=== PATIENT | male | born 1950 | race Caucasian/White ===

== ENCOUNTER 2017-08-14 10:16 | Observation (INO) | payer MEDICARE, SELFPAY | END 2017-08-16 09:50 | disposition home or self-care (01) | PROVIDERS: Admitting Provider Family Medicine; Emergency Provider Emergency Medicine; Family Provider Family Medicine; PCP Family Medicine; Visit Provider Family Medicine | DX: N20.1 Calculus of ureter (principal); N13.5 Crossing vessel and stricture of ureter without hydronephrosis; I10 Essential (primary) hypertension | CPT/HCPCS: 52332; 52351; 99203; 36415; 50387; 74176; 80048; 80053; 81001; 82150; 83690; 85025; 87086; 94640; 94760; 96365; 96375; 99284; C1769; C2617; G0378; J0131; J2405 ==

== ENCOUNTER 2017-09-06 10:00 | Outpatient (RCR) | payer MEDICARE, SELFPAY | END 2017-09-06 23:59 | LOC: PT 10:00 | PROVIDERS: Visit Provider Orthopaedic Surgery | DX: Z96.652 Presence of left artificial knee joint (principal); M25.562 Pain in left knee | CPT/HCPCS: G8978; G8979; G8980; 97014; 97016; 97110; 97140; 97161; G0283 ==

== ENCOUNTER 2017-10-27 09:00 | Outpatient (RCR) | payer MEDICARE, SELFPAY | END 2017-10-27 09:02 | disposition home or self-care (01) | LOC: PT 09:00 | PROVIDERS: Visit Provider Orthopaedic Surgery | DX: M25.562 Pain in left knee (principal) | CPT/HCPCS: 97010; 97014; 97016; 97033; 97035; 97110; 97140; G0283 ==

== ENCOUNTER → 2018-01-12 10:34 | Outpatient (CLI) | payer MEDICARE, SELFPAY ==
--- NOTE | 2018-01-12 10:39 | US_ITS ---
US extremity RT limited CLINICAL INDICATION: ITS.REASON: MASS RT AXILLA ORDERING PHYSICIAN: Manuelito Dior MD PATIENT AGE: 67 years FINDINGS: Ultrasound of the palpable abnormality in the right posterior axillary region demonstrates a heterogeneous area of echogenicity measuring 3 x 1 cm mixed iso and hyperechoic areas. This is not a typical appearance for a lipoma. CT recommended for further evaluation. IMPRESSION: 3 x 1 cm mixed pericolic area corresponding to the palpable abnormality in the right axillary region posteriorly not typical appearance for a lipoma. Consider CT for further evaluation
== END ==
PROVIDERS: Family Provider Family Medicine; PCP Family Medicine; Visit Provider Family Medicine
DX: R22.31 Localized swelling, mass and lump, right upper limb (principal)

== ENCOUNTER → 2018-01-30 10:33 | Outpatient (CLI) | payer MEDICARE, SELFPAY ==
[2018-01-30 10:52] LABS: Blood Urea Nitrogen 18 mg/dL (7-18); Creatinine,Serum 1.36 mg/dL (0.70-1.30); Estimated Glomerular Filt Rate 52 ml/min (>60); GFR (African American) 63 ML/MIN (>60)
--- NOTE | 2018-01-30 10:56 | CT_ITS ---
CT chest w con HISTORY: ITS.REASON: MASS RIGHT AXILLA ORDERING PHYSICIAN: Manuelito Dior MD PATIENT AGE: 67 years TECHNIQUE: Axial images obtained following the administration of 75 mL of Isovue 370 . Sagittal, and coronal reformatted images are also generated and reviewed. All CT scans at the facility use one or more dose reduction, viz: automated exposure control; ma/kV adjustment per patient size (including targeted exams where dose is matched to indication; i.e. head); or iterative reconstruction technique. COMPARISON: 01/12/2018 FINDINGS: There is fatty mass involving the latissimus dorsi muscle superiorly. This measures 11 x 4.6 x 5 cm . This is consistent with a lipoma. There is an internal septa however, no stranding of the fat or calcification or internal hemorrhage is evident. No axillary adenopathy. No mediastinal or hilar mass or adenopathy. Normal heart size. The lungs are clear aside from calcified granuloma in the left lower lobe. No acute bony anomalies. IMPRESSION: Lipoma of the right latissimus dorsi
== END ==
PROVIDERS: Family Provider Family Medicine; PCP Family Medicine; Visit Provider Family Medicine
DX: R22.31 Localized swelling, mass and lump, right upper limb (principal)
CPT/HCPCS: 36415; 71260; 82565; 84520; Q9967

== ENCOUNTER → 2018-04-10 13:54 | Outpatient (CLI) | payer MEDICARE, SELFPAY | PROVIDERS: PCP Family Medicine; Visit Provider Family Medicine | DX: R00.2 Palpitations (principal) | CPT/HCPCS: 93225; 93226 ==

== ENCOUNTER → 2018-05-07 07:11 | Outpatient (CLI) | payer MEDICARE, SELFPAY ==
--- NOTE | 2018-05-07 07:13 | CA_ITS ---
PROCEDURE: 2-D M-mode and color Doppler study INDICATIONS FOR THE TEST: Chest pain X COPDX Heart Murmur Tobacco SmokingEX PalpitationsX Fatigue Syncope Edema Hypertension Diabetes Mellitus Rheumatic Fever SOB DOEXObesity Hyperlipidemia Family History HDX Additional History ABN EKG PATIENT INFORMATION HEIGHT: 68 WEIGHT:179 GENDER: Male B/P:121/62 2-D/M-MODE INTERPRETATION: 2-D MEASUREMENTS OBSERVED VALUES IN CMS Right Ventricular Dimension (RVDd) 3.0 Interventricular Septum (Thickness)(IVsd) .9 Left Ventricular Internal Dimensions(LVIDd) 4.7 Left Ventricular Posterior Wall (Thickness)(LVPWd) .9 Aortic Root 3.3 Aortic Cusp Separation 1.6 Left Atrial Dimensions (LAD) 3.7 2D 1. Left atrium is qualitatively mildly enlarged, left ventricle is normal size, left ventricle wall thickness is upper limit of the normal, there is preserved left ventricular systolic function, visually estimated ejection fraction of 55% with no obvious regional wall motion abnormality. 2. The right atrium and right ventricle are normal size and contractility. 3. The aortic valve is minimally thickened and fibrosed. 4. The mitral and tricuspid valve leaflets are minimally thickened. 5. The pulmonic valve is poorly visualized. 6. No significant pericardial effusion noted. DOPPLER INTERROGATION: Doppler interrogation of the aortic, mitral and tricuspid valve reveals presence of mild tricuspid regurgitation, calculated right ventricular systolic pressure is 41 mmHg consistent with moderate bony hypertension, grade 1 diastolic dysfunction seen with tissue Doppler evidence of raised left atrial pressure. CONCLUSION: 1. Mildly enlarged left atrium, normal left ventricular size, visually estimated ejection fraction 55% with no obvious regional wall motion abnormality, grade 1 diastolic dysfunction seen with tissue Doppler evidence of raised left atrial pressure. 2. Mild mitral and tricuspid regurgitation, calculated right ventricular systolic pressure is 41 mmHg consistent with moderate pulmonary hypertension. 3. No significant pericardial effusion noted.
--- NOTE | 2018-05-07 07:13 | NM_ITS ---
History and Indications: Hypertension, hyperlipidemia, family history, chest pain, fatigue and abnormal EKG. Procedure: Patient exercised on Marvin protocol 7 minutes, resting heart rate was 56 bpm, resting blood pressure 146/80, with exercise maximum heart rate achieved was 1 32 bpm which is greater than 85% of the maximum predicted heart rate and a blood pressure was 176/64. Test was started due to shortness of breath and fatigue patient denied any complained of chest pain. Patient has good exercise capacity achieved 10.1mets of workload on treadmill, the blood pressure response to exercise was adequate. Electrocardiogram: Resting electrocardiogram showed sinus bradycardia, with exercise there is less than 1.[address] segment depression noted from the baseline EKG. The EKG portion of the exercise Myoview is negative for ischemia. Cardiac stress and resting SPECT images: Cardiac stress and rest SPECT images were obtained using technetium 99 Myoview, 32.3 mCi at stress and can 10.4 mCi at rest, gated SPECT further analysis of segmental wall motion and calculation of the ejection fraction also been. Cardiac stress and rest images show a mild fixed defect in the inferior wall with normal contractility in the gated SPECT is likely secondary to soft tissue attenuation, no reversible ischemia seen. Computer derived ejection fraction is 58% with no regional wall motion abnormality, right ventricle is normal size and contractility. Conclusion: 1. The EKG portion of the exercise Myoview is negative for ischemia, patient has good exercise capacity achieved 10.1mets of workload on treadmill, the blood pressure response to exercise was adequate, there was no exercise-induced chest discomfort. 2. No obvious scintigraphic evidence of reversible ischemia seen, computer derived ejection fraction is over 65% with no obvious regional wall motion abnormality, right ventricle is normal size and contractility. 3. Normal exercise Myoview study.
--- NOTE | 2018-05-07 07:29 | HMH.ITSHM ---
GABAPENTIN ALLOPURINOL TRILIPIX ROSUVASTATIN LEVOTHYROXINE LEVOBUTEROL CLONAZEPAM ADVAIR LISINOPRIL
== END ==
PROVIDERS: Family Provider Family Medicine; PCP Family Medicine; Visit Provider Internal Medicine
DX: R00.2 Palpitations (principal); R07.9 Chest pain, unspecified; R06.00 Dyspnea, unspecified
CPT/HCPCS: 78452; 93017; 93306; A9502

== ENCOUNTER → 2018-06-04 08:43 | Outpatient (POV) | payer MEDICARE, SELFPAY ==
[2018-06-04 08:54] VITALS: BP 150/83; PULSE 74; RESP 18; O2SAT 98
--- NOTE | 2018-06-04 09:23 | HMH.PMCON ---
Assessment and Plan (1) Right shoulder pain Current visit: Yes Status: Chronic Qualifiers: Chronicity: chronic Qualified Code(s): M25.511 - Pain in right shoulder; G89.29 - Other chronic pain Category: Medical Code(s): M25.511 - Pain in right shoulder - Assessment and plan all Dx Assessment and Plan for all problems:: We will schedule a right intra-articular shoulder injection for the patient. Patient is done well with this in the past. I will follow-up with the patient after his injection and reassess his symptoms at that time. This note was dictated using voice recognition software and may contain errors or omissions HPI - Data of Consult Consult date: 06/04/18 Requesting Physician: Maye Padron APRN Primary Care Provider: Manuelito Dior MD Family Provider: Manuelito Dior MD - Consult Narrative Reason for consult: Right shoulder pain History of present illness: Mr. Vaughn is a 67 year old male who presents today for consultation in regards to his right shoulder pain. Patient states that 2 years ago he had the exact same pain where he got injections by Dr. Huerta in [place] after 2 injections he had 90% relief for 2 years. Patient states her pain is beginning to come back. Patient states his pain is a 8 out of 10 today. It is increased when he lifts and decreases when he rests. Patient does have some limited range of motion in that area. Patient is continuing a home stretching exercise program. Patient's tried anti-inflammatories along with gabapentin with no relief. Patient states that the pain is very focal in his shoulder. CC: Maye Padron APRN [facility] History I have reviewed the patient's past medical history: Yes Medical History: Reports:: Asthma, Chronic Obstructive Pulmonary Disease (COPD), Hyperlipidemia, Hypertension Denies:: Cancer, Diabetes Mellitus Type 1, Diabetes Mellitus Type 2 Laterality Cases: Bilateral: Tonsillectomy Other Surgeries: Yes: Cardiac Catheterization (05/10/18 no stents), Cholecystectomy, Hernia Repair Amputation: No Fractures: No - *Social History Smoking Status: Former smoker Tobacco Type: cigarettes Alcohol Intake: current Alcohol Intake Frequency:: a few times a week Substance Use Type: denies use Occupational Status: retired Housing: house Household Members: spouse - Psychiatric History Expresses thoughts of harming self/others: None Suicide Plan Description: No Plan *Family Hx:: Hypertension, Stroke Review of Systems - Review of Systems ROS General: no recent weight change, no fever, no sleep disturbances Respiratory: no cough, no shortness of air, no recurring pulmonary infections Cardiovascular/Peripheral Vascular: No chest pain, No palpitations, no edema, no shortness of breath. Gastrointestinal: no incontinence, normal bowel movements reported Genitourinary: no incontinence Musculoskeletal: Shoulder pain right side Psychiatric: normal mood/ affect Neurological: [denies weakness in extremities], [denies balance issues] Meds Home Medications Medication Instructions Recorded Confirmed Type allopurinol 100 mg tablet 100 mg PO QDAY 10/03/17 04/23/18 History clonazepam 1 mg tablet 1 mg PO QHS 10/03/17 04/23/18 History fenofibric acid (choline) 135 mg 135 mg PO QDAY 10/03/17 04/23/18 History capsule,delayed release fluticasone 50 mcg/actuation 1 inh INHALATION BID 10/03/17 History blister powder for inhalation levothyroxine 25 mcg capsule 25 mcg PO DAILY 10/03/17 04/23/18 History cholecalciferol (vitamin D3) 5,000 5,000 unit PO DAILY cap 04/24/18 History unit capsule gabapentin 300 mg capsule 300 mg PO QHS cap 04/24/18 History levalbuterol 1.25 mg/3 mL solution 1.25 mg INHALATION Q4H PRN 04/24/18 History for nebulization rosuvastatin 20 mg tablet 20 mg PO DAILY tab 04/24/18 History Allergies Allergy/AdvReac Type Severity Reaction Status Date / Time codeine [CODEIN
--- NOTE | 2018-06-04 09:26 | P.CONS_ITS ---
Assessment and Plan (1) Right shoulder pain Current visit: Yes Status: Chronic Qualifiers: Chronicity: chronic Qualified Code(s): M25.511 - Pain in right shoulder; G89.29 - Other chronic pain Category: Medical Code(s): M25.511 - Pain in right shoulder - Assessment and plan all Dx Assessment and Plan for all problems:: We will schedule a right intra-articular shoulder injection for the patient. Patient is done well with this in the past. I will follow-up with the patient after his injection and reassess his symptoms at that time. This note was dictated using voice recognition software and may contain errors or omissions HPI - Data of Consult Consult date: 06/04/18 Requesting Physician: Maye Padron APRN Primary Care Provider: Manuelito Dior MD Family Provider: Manuelito Dior MD - Consult Narrative Reason for consult: Right shoulder pain History of present illness: Mr. Vaughn is a 67 year old male who presents today for consultation in regards to his right shoulder pain. Patient states that 2 years ago he had the exact same pain where he got injections by Dr. Huerta in [place] after 2 injections he had 90% relief for 2 years. Patient states her pain is beginning to come back. Patient states his pain is a 8 out of 10 today. It is increased when he lifts and decreases when he rests. Patient does have some limited range of motion in that area. Patient is continuing a home stretching exercise program. Patient's tried anti-inflammatories along with gabapentin with no relief. Patient states that the pain is very focal in his shoulder. CC: Maye Padron APRN [facility] History I have reviewed the patient's past medical history: Yes Medical History: Reports:: Asthma, Chronic Obstructive Pulmonary Disease (COPD), Hyperlipidemia, Hypertension Denies:: Cancer, Diabetes Mellitus Type 1, Diabetes Mellitus Type 2 Laterality Cases: Bilateral: Tonsillectomy Other Surgeries: Yes: Cardiac Catheterization (05/10/18 no stents), Cholecystectomy, Hernia Repair Amputation: No Fractures: No - *Social History Smoking Status: Former smoker Tobacco Type: cigarettes Alcohol Intake: current Alcohol Intake Frequency:: a few times a week Substance Use Type: denies use Occupational Status: retired Housing: house Household Members: spouse - Psychiatric History Expresses thoughts of harming self/others: None Suicide Plan Description: No Plan *Family Hx:: Hypertension, Stroke Review of Systems - Review of Systems ROS General: no recent weight change, no fever, no sleep disturbances Respiratory: no cough, no shortness of air, no recurring pulmonary infections Cardiovascular/Peripheral Vascular: No chest pain, No palpitations, no edema, no shortness of breath. Gastrointestinal: no incontinence, normal bowel movements reported Genitourinary: no incontinence Musculoskeletal: Shoulder pain right side Psychiatric: normal mood/ affect Neurological: [denies weakness in extremities], [denies balance issues] Meds Home Medications Medication Instructions Recorded Confirmed Type allopurinol 100 mg tablet 100 mg PO QDAY 10/03/17 04/23/18 History clonazepam 1 mg tablet 1 mg PO QHS 10/03/17 04/23/18 History fenofibric acid (choline) 135 mg 135 mg PO QDAY 10/03/17 04/23/18 History capsule,delayed release fluticasone 50 mcg/actuation 1 inh INHALATION BID 10/03/17 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
== END ==
PROVIDERS: Family Provider Family Medicine; PCP Family Medicine; Visit Provider Clinical Nurse Specialist Family Health
DX: M25.511 Pain in right shoulder (principal); G89.29 Other chronic pain
CPT/HCPCS: 99202

== ENCOUNTER → 2018-07-17 08:53 | Outpatient (POV) | payer MEDICARE, SELFPAY ==
[2018-07-17 09:04] VITALS: BP 136/78; PULSE 80; RESP 18; O2SAT 98; BMI 28.1
--- NOTE | 2018-07-17 09:09 | HMH.PAINSOAP ---
[facility] Pain Management SOAP Note Subjective:: Patient is a pleasant 67-year-old white male who presents today for follow-up after right shoulder injection. Patient states that helped somewhat however he still having quite a bit of pain. Patient does have a quite noticeable lipoma under his arm on the right side. Patient is going to go and be seen by a surgeon in regards to this. After this he is going to call our office to determine if we need an MRI. He rates his pain a 5 out of 10 when he is moving his arm. ROS General: no recent weight change, no fever, no sleep disturbances Respiratory: no cough, no shortness of air, no recurring pulmonary infections Cardiovascular/Peripheral Vascular: No chest pain, No palpitations, no edema, no shortness of breath. Gastrointestinal: no incontinence, normal bowel movements reported Genitourinary: no incontinence Musculoskeletal: Right shoulder pain Psychiatric: normal mood/ affect Neurological: [denies weakness in extremities], [denies balance issues] Objective:: Physical Exam General: Alert and oriented x3, no acute distress, pleasant and cooperative, [on room air] Lungs: Resps E/U, Symmetrical chest expansion, Eyes: PERRL Musculoskeletal: Range of motion right arm somewhat guarded secondary to pain, deep tendon reflexes normal, strength in upper and lower extremities [5/5], normal gait noted Neurological: speech clear, banking center manager equal, no gross sensory deficits Assessment:: Right shoulder subacromial bursitis and degenerative joint disease with right shoulder pain Plan:: We will order an MRI after the patient has been consulted by surgery for his lipoma. I will follow-up with the patient after his MRI. This note was dictated using voice recognition software and may contain errors or omissions
--- NOTE | 2018-07-17 09:12 | P.CONS_ITS ---
[facility] Pain Management SOAP Note Subjective:: Patient is a pleasant 67-year-old white male who presents today for follow-up after right shoulder injection. Patient states that helped somewhat however he still having quite a bit of pain. Patient does have a quite noticeable lipoma under his arm on the right side. Patient is going to go and be seen by a surgeon in regards to this. After this he is going to call our office to determine if we need an MRI. He rates his pain a 5 out of 10 when he is moving his arm. ROS General: no recent weight change, no fever, no sleep disturbances Respiratory: no cough, no shortness of air, no recurring pulmonary infections Cardiovascular/Peripheral Vascular: No chest pain, No palpitations, no edema, no shortness of breath. Gastrointestinal: no incontinence, normal bowel movements reported Genitourinary: no incontinence Musculoskeletal: Right shoulder pain Psychiatric: normal mood/ affect Neurological: [denies weakness in extremities], [denies balance issues] Objective:: Physical Exam General: Alert and oriented x3, no acute distress, pleasant and cooperative, [on room air] Lungs: Resps E/U, Symmetrical chest expansion, Eyes: PERRL Musculoskeletal: Range of motion right arm somewhat guarded secondary to pain, deep tendon reflexes normal, strength in upper and lower extremities [5/5], normal gait noted Neurological: speech clear, clothes presser equal, no gross sensory deficits Assessment:: Right shoulder subacromial bursitis and degenerative joint disease with right shoulder pain Plan:: We will order an MRI after the patient has been consulted by surgery for his lipoma. I will follow-up with the patient after his MRI. This note was dictated using voice recognition software and may contain errors or omissions
== END ==
PROVIDERS: PCP Family Medicine; Visit Provider Clinical Nurse Specialist Family Health
DX: M19.011 Primary osteoarthritis, right shoulder (principal); M75.51 Bursitis of right shoulder
CPT/HCPCS: 99213

== ENCOUNTER → 2018-07-24 09:32 | Outpatient (CLI) | payer MEDICARE, SELFPAY ==
[2018-07-24 10:09] LABS: Basophils % 0.6 % (0.1-2.0); Eosinophils # 0.5 K/mm3 (0.0-0.4); Eosinophils % 8.4 % (0.1-12.0); Hematocrit 46.7 % (42.0-52.0); Hemoglobin 15.2 g/dL (14.1-18.0); Lymphocytes # 1.4 K/mm3 (0.7-4.5); Lymphocytes % 22.1 % (10-50); Mean Corpuscular HGB Conc 32.6 g/dL (31.8-35.4); Mean Corpuscular Hemoglobin 30.2 pg (27.0-31.2); Mean Corpuscular Volume 92.6 fl (80-94); Mean Platelet Volume 8.4 fl (7.4-10.4); Monocytes # 0.3 K/mm3 (0.1-1.0); Monocytes % 5.5 % (1.7-9.3); Neutrophils % 63.4 % (37.0-80.0); Platelet Count 257 K/mm3 (142-424); Red Blood Count 5.04 M/mm3 (4.60-6.20); Red Cell Distribution Width 13.1 % (11.5-17.5); White Blood Count 6.3 K/mm3 (4.8-10.8)
[2018-07-24 11:25] LABS: Anion Gap 11.6 mEq/L (5-15); Blood Urea Nitrogen 18 mg/dL (7-18); Carbon Dioxide 31 mmol/L (21.0-32.0); Chloride 104 mmol/L (98-107); Creatinine,Serum 1.42 mg/dL (0.70-1.30); Estimated Glomerular Filt Rate 49 ml/min (>60); GFR (African American) 60 ML/MIN (>60); Glucose 92 mg/dL (74-106); Potassium 4.6 mmoL/L (3.5-5.1); Sodium 142 mmol/L (136-145)
== END ==
PROVIDERS: PCP Family Medicine; Visit Provider Surgery
DX: D17.20 Benign lipomatous neoplasm of skin and subcutaneous tissue of unspecified limb (principal); D17.9 Benign lipomatous neoplasm, unspecified; R07.9 Chest pain, unspecified
CPT/HCPCS: 36415; 80048; 85025

== ENCOUNTER → 2019-03-26 08:52 | Outpatient (POV) | payer MEDICARE, SELFPAY ==
[2019-03-26 08:57] VITALS: BP 158/74; PULSE 66; RESP 18; O2SAT 98; BMI 28.3
--- NOTE | 2019-03-26 09:13 | HMH.PAINSOAP ---
[facility] Pain Management SOAP Note Subjective:: Patient is a pleasant 67-year-old white male who presents today for follow-up. Patient was seen in July for a right shoulder injection in July. At that time, the patient was scheduled for an MRI of the right shoulder, but after the injection he says his pain went away. He says the injection was 100% effective for his pain until the last week. He now rates his pain a 3 out of 10 and says it is progressively getting worse. He says that the pain worsens with movement of his right upper extremity. He denies any radiation of pain. Patient also was noted to have a lipoma under his arm on the right side at his last visit, and was also supposed to be seen by a surgeon in regards to this. He also did not follow-up with that because his pain did decrease. Review of Systems General: No recent weight changes, no fever, no sleep disturbances Respiratory: No cough, no shortness of air, no recurring pulmonary infections Cardiovascular/peripheral vascular: No chest pain, no palpitations, no edema, no shortness of breath Gastrointestinal: No new onset incontinence, normal bowel movements reported Genitourinary: No new onset incontinence Musculoskeletal: Right shoulder pain Psychiatric: Normal mood/affect Neurological: [Denies weakness in extremities], [denies balance issues] Objective:: Physical exam General: Alert and oriented x3, no acute distress, pleasant and cooperative, [on room air] Lungs: Respirations even and unlabored, symmetrical chest expansion Eyes: PERRL Musculoskeletal: Range of motion to right shoulder somewhat guarded secondary to pain, deep tendon reflexes normal, strength in upper and lower extremities [5/5], [abnormal gait noted] Neurological: Speech clear, fortune cookie maker equal, no gross sensory deficit Assessment:: Right shoulder subacromial bursitis and degenerative joint disease with right shoulder pain Plan:: Patient is not interested in an MRI at this time he would like to have a another injection to his right shoulder. We will schedule the patient for a right shoulder subacromial bursa injection. He will continue a home stretching program and anti-inflammatories. We will schedule him for the procedure and see him back afterwards to reassess his symptoms at that time. He is been instructed to call the office if he has any concerns prior to his next appointment. Dr. Camarena has reviewed this note and agrees with this plan of care. This note was dictated using voice recognition software and make contain errors or omissions.
== END ==
PROVIDERS: PCP Family Medicine; Visit Provider Clinical Nurse Specialist Family Health
DX: M75.51 Bursitis of right shoulder; M19.011 Primary osteoarthritis, right shoulder
CPT/HCPCS: 99212

== ENCOUNTER → 2019-04-15 11:01 | Outpatient (POV) | payer MEDICARE, SELFPAY ==
[2019-04-15 11:20] VITALS: BP 135/74; PULSE 71; RESP 18; O2SAT 98; BMI 28.3
--- NOTE | 2019-04-15 12:43 | HMH.PAINSOAP ---
[facility] Pain Management SOAP Note Subjective:: Patient is a pleasant 68-year-old white male who presents today for follow-up. Patient was scheduled for right shoulder MRI however lately his low back is been what is bothering him. Patient was seen by chiropractor who took an x-ray and stated that the chiropractor said there were pinched nerves in his low back. Most of his pain is on his left side. Is pretty focal in nature does not radiate. He rates his pain a 7 out of 10. He is having difficulty doing functional things around the home. He is unable to take NSAIDs due to his kidneys. He is tried and failed Tylenol therapy. He is tried and failed physical therapy and chiropractic therapy. He does not have any imaging of his low back on file. ROS General: no recent weight change, no fever, no sleep disturbances Respiratory: no cough, no shortness of air, no recurring pulmonary infections Cardiovascular/Peripheral Vascular: No chest pain, No palpitations, no edema, no shortness of breath. Gastrointestinal: no incontinence, normal bowel movements reported Genitourinary: no incontinence Musculoskeletal: Back pain Psychiatric: normal mood/ affect Neurological: [denies weakness in extremities], [denies balance issues] Objective:: Physical Exam General: Alert and oriented x3, no acute distress, pleasant and cooperative, [on room air] Lungs: Resps E/U, Symmetrical chest expansion, Eyes: PERRL Musculoskeletal: Flexion and extension of lumbar spine somewhat guarded secondary to pain, deep tendon reflexes normal, strength in upper and lower extremities [5/5], [abnormal gait noted] Neurological: speech clear, glove presser equal, no gross sensory deficits Assessment:: Degenerative disc disease lumbar spine with lumbar radiculopathy, back pain Plan:: We will get an MRI of his low back to see if he may benefit from injective therapy. He is trying chiropractic therapy, physical therapy. He cannot do NSAID therapy. I will follow-up with the patient after his MRI reassess his symptoms at that time he is been instructed to call the office if he has issues prior to his next appointment. Dr. Camarena has reviewed this note and agrees with this plan of care. This note was dictated using voice recognition software and may contain errors or omissions Pain Management Hx Components *Have you ever received a pneumonia vaccine?: Yes *Have you received a flu vaccine this season?: Yes - *Social History *Occupational Status:: other *Travel in the last 8 weeks: None
--- NOTE | 2019-04-15 12:46 | P.CONS_ITS ---
[facility] Pain Management SOAP Note Subjective:: Patient is a pleasant 68-year-old white male who presents today for follow-up. Patient was scheduled for right shoulder MRI however lately his low back is been what is bothering him. Patient was seen by chiropractor who took an x-ray and stated that the chiropractor said there were pinched nerves in his low back. Most of his pain is on his left side. Is pretty focal in nature does not radiate. He rates his pain a 7 out of 10. He is having difficulty doing functional things around the home. He is unable to take NSAIDs due to his kidneys. He is tried and failed Tylenol therapy. He is tried and failed physical therapy and chiropractic therapy. He does not have any imaging of his low back on file. ROS General: no recent weight change, no fever, no sleep disturbances Respiratory: no cough, no shortness of air, no recurring pulmonary infections Cardiovascular/Peripheral Vascular: No chest pain, No palpitations, no edema, no shortness of breath. Gastrointestinal: no incontinence, normal bowel movements reported Genitourinary: no incontinence Musculoskeletal: Back pain Psychiatric: normal mood/ affect Neurological: [denies weakness in extremities], [denies balance issues] Objective:: Physical Exam General: Alert and oriented x3, no acute distress, pleasant and cooperative, [on room air] Lungs: Resps E/U, Symmetrical chest expansion, Eyes: PERRL Musculoskeletal: Flexion and extension of lumbar spine somewhat guarded secondary to pain, deep tendon reflexes normal, strength in upper and lower extremities [5/5], [abnormal gait noted] Neurological: speech clear, director corporate 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 He is trying chiropractic therapy, physical therapy. He cannot do NSAID therapy. I will follow-up with the patient after his MRI reassess his symptoms at that time he is been instructed to call the office if he has issues prior to his next appointment. Dr. Camarena has reviewed this note and agrees with this plan of care. This note was dictated using voice recognition software and may contain errors or omissions Pain Management Hx Components *Have you ever received a pneumonia vaccine?: Yes *Have you received a flu vaccine this season?: Yes - *Social History *Occupational Status:: other *Travel in the last 8 weeks: None
== END ==
PROVIDERS: PCP Family Medicine; Visit Provider Clinical Nurse Specialist Family Health
DX: M51.16 Intervertebral disc disorders with radiculopathy, lumbar region (principal)
CPT/HCPCS: 99212

== ENCOUNTER → 2019-04-22 10:02 | Outpatient (POV) | payer MEDICARE, SELFPAY | PROVIDERS: PCP Family Medicine; Visit Provider Nurse Practitioner Family | DX: Z00.00 Encounter for general adult medical examination without abnormal findings (principal) ==

== ENCOUNTER → 2019-04-23 12:34 | Outpatient (CLI) | payer MEDICARE, SELFPAY ==
--- NOTE | 2019-04-23 12:37 | MR_ITS ---
PROCEDURE: MR LUMBAR SPINE WO CON CLINICAL INDICATION: BACK PAIN COMPARISON: GAMEMASTER/O MRI-L-SPINE W/O from 12/17/2015 TECHNIQUE: Standard multiplanar multiecho sequences are performed without contrast. 3-D MIP and myelographic images are also rendered and reviewed FINDINGS: There is normal alignment. The spinal cord ends at the L1-L2 level. L1-L2, L2-L3, L3-L4, and L4-L5 have an unremarkable appearance. There is mild degenerative disc disease at L5-S1 with minimal bulging disc and a small broad-based central disc protrusion. This has developed since the previous exam and is abutting the anterior medial aspect of both S1 nerve roots. This is very slightly eccentric toward the left. IMPRESSION: Mild degenerative disc disease at L5-S1 with bulging disc and a small broad based central disc protrusion slightly eccentric to the left abutting anterior medial aspect of both S1 nerve roots. Dictated by: Luis F Palmer MD 04/23/2019 15:50 Signed by: <Electronically signed by Luis F Palmer MD in [place]> 04/23/2019 15:51
== END ==
PROVIDERS: PCP Family Medicine; Visit Provider Clinical Nurse Specialist Family Health
DX: M54.5 Low back pain (principal)
CPT/HCPCS: 72148; 76376

== ENCOUNTER → 2019-04-29 10:42 | Outpatient (POV) | payer MEDICARE, SELFPAY ==
[2019-04-29 11:04] VITALS: BP 135/78; PULSE 61; RESP 18; O2SAT 98; BMI 27.0
--- NOTE | 2019-04-29 13:03 | HMH.PAINSOAP ---
[facility] Pain Management SOAP Note Subjective:: Patient is a pleasant 68-year-old white male who rates his pain today an 8 out of 10. He is following up after lumbar MRI. Patient has a L5-S1 bulging disc which is abutting the anterior medial aspect of both S1 nerve roots. Most of his pain is on the left side. He has pain running down his leg to his toes. He is interested in injective therapy. He is not on any anticoagulation therapy. He is continuing a home stretching program. He is tried and failed medications. ROS General: no recent weight change, no fever, no sleep disturbances Respiratory: no cough, no shortness of air, no recurring pulmonary infections Cardiovascular/Peripheral Vascular: No chest pain, No palpitations, no edema, no shortness of breath. Gastrointestinal: no incontinence, normal bowel movements reported Genitourinary: no incontinence Musculoskeletal: Back pain, left leg pain Psychiatric: normal mood/ affect Neurological: [denies weakness in extremities], [denies balance issues] Objective:: Physical Exam General: Alert and oriented x3, no acute distress, pleasant and cooperative, on room air Lungs: Resps E/U, Symmetrical chest expansion, Eyes: PERRL Musculoskeletal: Flexion and extension of lumbar spine somewhat guarded secondary to pain, deep tendon reflexes normal, strength in upper and lower extremities [5/5], [abnormal gait noted] Neurological: 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 I believe it would be beneficial given his symptomology and pathology. I will follow-up with patient after this reassess his symptoms at that time he is been instructed to call the office if he has any issues prior to his next appointment. Dr. Camarena has reviewed this note and agrees with this plan of care. This note was dictated using voice recognition software and may contain errors or omissions Pain Management Hx Components *Have you ever received a pneumonia vaccine?: Yes *Have you received a flu vaccine this season?: Yes - *Social History *Occupational Status:: other *Travel in the last 8 weeks: None
--- NOTE | 2019-04-29 13:06 | P.CONS_ITS ---
[facility] Pain Management SOAP Note Subjective:: Patient is a pleasant 68-year-old white male who rates his pain today an 8 out of 10. He is following up after lumbar MRI. Patient has a L5-S1 bulging disc which is abutting the anterior medial aspect of both S1 nerve roots. Most of his pain is on the left side. He has pain running down his leg to his toes. He is interested in injective therapy. He is not on any anticoagulation therapy. He is continuing a home stretching program. He is tried and failed medications. ROS General: no recent weight change, no fever, no sleep disturbances Respiratory: no cough, no shortness of air, no recurring pulmonary infections Cardiovascular/Peripheral Vascular: No chest pain, No palpitations, no edema, no shortness of breath. Gastrointestinal: no incontinence, normal bowel movements reported Genitourinary: no incontinence Musculoskeletal: Back pain, left leg pain Psychiatric: normal mood/ affect Neurological: [denies weakness in extremities], [denies balance issues] Objective:: Physical Exam General: Alert and oriented x3, no acute distress, pleasant and cooperative, on room air Lungs: Resps E/U, Symmetrical chest expansion, Eyes: PERRL Musculoskeletal: Flexion and extension of lumbar spine somewhat guarded secondary to pain, deep tendon reflexes normal, strength in upper and lower extremities [5/5], [abnormal gait noted] Neurological: 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 I believe it would be beneficial given his symptomology and pathology. I will follow-up with patient after this reassess his symptoms at that time he is been instructed to call the office if he has any issues prior to his next appointme nt. Dr. Camarena has reviewed this note and agrees with this plan of care. This note was dictated using voice recognition software and may contain errors or omissions Pain Management Hx Components *Have you ever received a pneumonia vaccine?: Yes *Have you received a flu vaccine this season?: Yes - *Social History *Occupational Status:: other *Travel in the last 8 weeks: None
== END ==
PROVIDERS: PCP Family Medicine; Visit Provider Clinical Nurse Specialist Family Health
DX: M51.16 Intervertebral disc disorders with radiculopathy, lumbar region (principal)
CPT/HCPCS: 99212

== ENCOUNTER → 2019-05-09 06:52 | Outpatient (CLI) | payer MEDICARE, OTHER, SELFPAY ==
[2019-05-09 07:35] LABS: Basophils % 0.6 % (0.1-2.0); Eosinophils # 0.2 K/mm3 (0.0-0.4); Eosinophils % 3.1 % (0.1-12.0); Hematocrit 50.3 % (42.0-52.0); Hemoglobin 16.3 g/dL (14.1-18.0); Lymphocytes # 1.5 K/mm3 (0.7-4.5); Lymphocytes % 27.2 % (10-50); Mean Corpuscular HGB Conc 32.3 g/dL (31.8-35.4); Mean Corpuscular Hemoglobin 30.3 pg (27.0-31.2); Mean Corpuscular Volume 93.9 fl (80-94); Mean Platelet Volume 8.6 fl (7.4-10.4); Monocytes # 0.3 K/mm3 (0.1-1.0); Monocytes % 5.9 % (1.7-9.3); Neutrophils # 3.6 K/mm3 (1.8-7.8); Neutrophils % 63.1 % (37.0-80.0); Platelet Count 245 K/mm3 (142-424); Red Blood Count 5.36 M/mm3 (4.60-6.20); Red Cell Distribution Width 13.1 % (11.5-17.5); White Blood Count 5.6 K/mm3 (4.8-10.8)
[2019-05-09 07:50] LABS: INR 1.02 (0.9-1.1); Prothrombin Time 10.6 seconds (9.4-11.8)
[2019-05-09 10:26] LABS: Alanine Aminotransferase 30 U/L (12-78); Albumin Level 3.8 gm/dL (3.4-5.0); Albumin/Globulin Ratio 1.3 (1.1-1.8); Alkaline Phosphatase 62 U/L (46-116); Aspartate Amino Transferase 21 U/L (15-37); Bilirubin,Total 0.5 mg/dL (0.2-1.0); Blood Urea Nitrogen 19 mg/dL (7-18); Calcium 9.7 mg/dL (8.5-10.1); Carbon Dioxide 34 mmol/L (21.0-32.0); Chloride 104 mmol/L (98-107); Chol/HDL Ratio 4.2 (1-3.5); Cholesterol 210 mg/dL (140-200); Creatinine,Serum 1.18 mg/dL (0.70-1.30); Estimated Glomerular Filt Rate 61 ml/min (>60); GFR (African American) 74 ML/MIN (>60); Globulin 2.9 gm/dl (1.3-3.2); Glucose 92 mg/dL (74-106); HDL Cholesterol 50 mg/dL (27-67); LDL Cholesterol 135 mg/dL (0-130); Prostate Specific Ag Screen 3.1 ng/mL (0.0-4.0); Sodium 142 mmol/L (136-145); T4 (Thyroxine) 9.2 ug/dl (4.7-13.3); Thyroid Stimulating Hormone 2.94 uIU/ml (0.358-3.740); Total Protein,Serum 6.7 gm/dL (6.4-8.2); Triglycerides 124 mg/dL (30-200); Uric Acid 4.9 mg/dL (2.6-7.2); VLDL Cholesterol 25 mg/dL (0-40)
[2019-05-09 15:29] LABS: Hemoglobin A1C 5.6 % (0.0-7.0)
== END ==
PROVIDERS: PCP Family Medicine; Visit Provider Family Medicine
DX: E78.5 Hyperlipidemia, unspecified (principal); R23.8 Other skin changes; E11.9 Type 2 diabetes mellitus without complications; Z12.5 Encounter for screening for malignant neoplasm of prostate; E03.9 Hypothyroidism, unspecified; Z51.81 Encounter for therapeutic drug level monitoring
CPT/HCPCS: 36415; 80053; 80061; 83036; 84436; 84443; 84550; 85025; 85610; 85730; G0103

== ENCOUNTER → 2019-07-30 09:09 | Outpatient (POV) | payer MEDICARE, OTHER, SELFPAY ==
[2019-07-30 09:21] VITALS: BP 134/74; PULSE 75; RESP 18; O2SAT 95; BMI 29.2
--- NOTE | 2019-07-30 09:43 | HMH.PAINSOAP ---
[facility] History I have reviewed the patient's past medical history: Yes Medical History: Reports:: Anxiety, Asthma, Chronic Obstructive Pulmonary Disease (COPD), Gastroesophageal Reflux Disease(GERD), Hyperlipidemia, Hypertension Denies:: Cancer, Diabetes Mellitus Type 1, Diabetes Mellitus Type 2, Internal Pacemaker, MRSA, Seizures *Have you ever received a pneumonia vaccine?: Yes *Have you received a flu vaccine this season?: Yes Other Medical History: Reports: Hypothyroidism, Sinus Problems, Thyroid Disease. Denies: Blood Transfusion Reaction Laterality Cases: Left: Arthroscopy Knee, Bilateral: Tonsillectomy Other Surgeries: Yes: Cardiac Catheterization, Cholecystectomy, Hernia Repair, Other (cholecystectomy). No: Pacemaker Amputation: No Fractures: No - *Social History Smoking Status: Light tobacco smoker Tobacco Type: smokeless tobacco Alcohol Intake: never Alcohol Intake Frequency:: a few times a week Substance Use Type: denies use *Occupational Status:: other Housing: house Household Members: spouse *Travel in the last 8 weeks: None - Psychiatric History Pschychiatric History:: Reports:: Anxiety Family Hx:: Hypertension, Stroke
--- NOTE | 2019-07-30 09:45 | HMH.PAINSOAP ---
[facility] Pain Management SOAP Note Subjective:: Patient is a pleasant 68-year-old white male who presents today for follow-up after his first lumbar epidural steroid injection. Patient doing extremely well stating he got over 80% of relief of his symptoms. Patient states his pain is slowly beginning to return he would like to finish out his series of 3 epidurals. We will set him up for this. He is not on any anticoagulation therapy. He is continuing home stretching program and anti-inflammatories. Overall doing well with injective therapy. He rates his pain today a 6 out of 10 mostly in the left side and down the left leg at this point. ROS General: no recent weight change, no fever, no sleep disturbances Respiratory: no cough, no shortness of air, no recurring pulmonary infections Cardiovascular/Peripheral Vascular: No chest pain, No palpitations, no edema, no shortness of breath. Gastrointestinal: no new onset incontinence, normal bowel movements reported Genitourinary: no new onset incontinence Musculoskeletal: Back pain, leg pain Psychiatric: normal mood/ affect Neurological: [denies new onset weakness in extremities], [denies new onset balance issues] Objective:: Physical Exam General: Alert and oriented x3, no acute distress, pleasant and cooperative, [on room air] Lungs: Resps E/U, Symmetrical chest expansion, Eyes: PERRL Musculoskeletal: Flexion and extension of lumbar spine somewhat guarded secondary to pain, deep tendon reflexes normal, strength in upper and lower extremities [5/5], antalgic gait noted, positive straight leg raise test on the left side at 30 degrees Neurological: speech clear, 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 Patient's been instructed to call the office if he has any issues prior to this injection. I will follow-up with the patient after his injection reassess his symptoms at that time. Dr. Camarena has reviewed this note and agrees with this plan of care. This note was dictated using voice recognition software and may contain errors or omissions [facility] History I have reviewed the patient's past medical history: Yes Medical History: Reports:: Anxiety, Asthma, Chronic Obstructive Pulmonary Disease (COPD), Gastroesophageal Reflux Disease(GERD), Hyperlipidemia, Hypertension Denies:: Cancer, Diabetes Mellitus Type 1, Diabetes Mellitus Type 2, Internal Pacemaker, MRSA, Seizures *Have you ever received a pneumonia vaccine?: Yes *Have you received a flu vaccine this season?: Yes Other Medical History: Reports: Hypothyroidism, Sinus Problems, Thyroid Disease. Denies: Blood Transfusion Reaction Laterality Cases: Left: Arthroscopy Knee, Bilateral: Tonsillectomy Other Surgeries: Yes: Cardiac Catheterization, Cholecystectomy, Hernia Repair, Other (cholecystectomy). No: Pacemaker Amputation: No Fractures: No - *Social History Smoking Status: Light tobacco smoker Tobacco Type: smokeless tobacco Alcohol Intake: never Alcohol Intake Frequency:: a few times a week Substance Use Type: denies use *Occupational Status:: other Housing: house Household Members: spouse *Travel in the last 8 weeks: None - Psychiatric History Pschychiatric History:: Reports:: Anxiety Family Hx:: Hypertension, Stroke
== END ==
PROVIDERS: PCP Family Medicine; Visit Provider Clinical Nurse Specialist Family Health
DX: M51.16 Intervertebral disc disorders with radiculopathy, lumbar region (principal)
CPT/HCPCS: 99212

== ENCOUNTER → 2019-10-21 09:19 | Outpatient (POV) | payer MEDICARE, SELFPAY | PROVIDERS: Visit Provider Nurse Practitioner Family | DX: Z00.00 Encounter for general adult medical examination without abnormal findings (principal) ==

== ENCOUNTER → 2019-11-06 07:26 | Outpatient (CLI) | payer MEDICARE, SELFPAY ==
[2019-11-06 08:20] LABS: Basophils % 0.8 % (0.1-2.0); Eosinophils # 0.3 K/mm3 (0.0-0.4); Eosinophils % 6.2 % (0.1-12.0); Hematocrit 45.2 % (42.0-52.0); Hemoglobin 14.9 g/dL (14.1-18.0); Lymphocytes # 1.5 K/mm3 (0.7-4.5); Lymphocytes % 31.5 % (10-50); Mean Corpuscular HGB Conc 32.9 g/dL (31.8-35.4); Mean Corpuscular Hemoglobin 30.1 pg (27.0-31.2); Mean Corpuscular Volume 91.5 fl (80-94); Monocytes # 0.3 K/mm3 (0.1-1.0); Monocytes % 5.6 % (1.7-9.3); Neutrophils # 2.7 K/mm3 (1.8-7.8); Neutrophils % 55.9 % (37.0-80.0); Platelet Count 219 K/mm3 (142-424); Red Blood Count 4.94 M/mm3 (4.60-6.20); Red Cell Distribution Width 13.2 % (11.5-17.5); White Blood Count 4.9 K/mm3 (4.8-10.8)
[2019-11-06 09:38] LABS: Chloride 104 mmol/L (98-107); Sodium 139 mmol/L (136-145)
[2019-11-06 09:40] LABS: Alanine Aminotransferase 23 U/L (12-78); Aspartate Amino Transferase 31 U/L (17-59); Blood Urea Nitrogen 15 mg/dl (9-20); Estimated Glomerular Filt Rate 74 ml/min (>60); GFR (African American) 89 ML/MIN (>60)
[2019-11-06 09:41] LABS: Albumin Level 3.7 g/dl (3.5-5.0); Albumin/Globulin Ratio 1.7 (1.1-1.8); Alkaline Phosphatase 41 U/L (38-126); Bilirubin,Total 0.5 mg/dl (0.2-1.3); Calcium 9.2 mg/dl (8.4-10.2); Carbon Dioxide 29 mmol/L (22.0-30.0); Globulin 2.2 g/dL (1.3-3.2); Glucose 91 mg/dl (74-100); Total Protein,Serum 5.9 g/dl (6.3-8.2)
== END ==
PROVIDERS: PCP Family Medicine; Visit Provider Family Medicine
DX: Z01.818 Encounter for other preprocedural examination (principal); H25.9 Unspecified age-related cataract
CPT/HCPCS: 36415; 80053; 85025; 93005

== ENCOUNTER → 2019-12-30 09:01 | Outpatient (POV) | payer MEDICARE, SELFPAY ==
[2019-12-30 09:37] VITALS: BP 145/80; PULSE 68; RESP 18; O2SAT 99; BMI 32.2
--- NOTE | 2019-12-30 12:52 | P.CONS_ITS ---
[facility] Pain Management SOAP Note Subjective:: Patient is a pleasant 69-year-old white male who presents today for a discussion in regards to his right wrist pain. Patient states that he has tendinitis in his wrist and is having pain with activity. Patient is tender to palpation. We discussed a short-term of steroids he is agreeable with this we will move forward with this. ROS General: no recent weight change, no fever, no sleep disturbances Respiratory: no cough, no shortness of air, no recurring pulmonary infections Cardiovascular/Peripheral Vascular: No chest pain, No palpitations, no edema, no shortness of breath. Gastrointestinal: no new onset incontinence, normal bowel movements reported Genitourinary: no new onset incontinence Musculoskeletal: Right wrist pain Psychiatric: normal mood/ affect Neurological: [denies new onset weakness in extremities], [denies new onset balance issues] Objective:: Physical Exam General: Alert and oriented x3, no acute distress, pleasant and cooperative, [on room air] Lungs: Resps E/U, Symmetrical chest expansion, Eyes: PERRL Musculoskeletal: Range of motion right wrist somewhat guarded secondary to pain, deep tendon reflexes normal, strength in upper and lower extremities [5/5], [normal gait noted] Neurological: 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 Patient is going to call our office if this is not beneficial. If it is beneficial he will follow-up on an as-needed basis. We specifically discussed risk factors for Covid-19 including age, heart or lung disease, diabetes, immunosuppression and travel. We also discussed that NSAIDs may worsen Covid-19 infection symptoms and that they should not be used to treat Covid-19 symptoms. Patient was also informed that corticosteroids in any form oral or injectable will decrease immune response and may increase risk of Covid- [address] Camarena has reviewed this patient's chart and this note and agrees with plan of care. Patient has been instructed to call the office if they have any issues prior to the next appointment. Dr. Camarena has reviewed this note and agrees with this plan of care. This note was dictated using voice recognition software and may contain errors or omissions [facility] History I have reviewed the patient's past medical history: Yes Medical History: Reports:: Anxiety, Asthma, Chronic Obstructive Pulmonary Disease (COPD), Gastroesophageal Reflux Disease(GERD), Hyperlipidemia, Hypertension Denies:: Cancer, Diabetes Mellitus Type 1, Diabetes Mellitus Type 2, Internal Pacemaker, MRSA, Seizures *Have you ever received a pneumonia vaccine?: Yes *Have you received a flu vaccine this season?: Yes Other Medical History: Reports: Hypothyroidism, Sinus Problems, Thyroid Disease. Denies: Blood Transfusion Reaction Laterality Cases: Left: Arthroscopy Knee, Bilateral: Tonsillectomy Other Surgeries: Yes: Cardiac Catheterization, Cholecystectomy, Hernia Repair, Other (cholecystectomy). No: Pacemaker Amputation: No Fractures: No - *Social History Smoking Status: Light tobacco smoker Tobacco Type: smokeless tobacco Alcohol Intake: never Alcohol Intake Frequency:: a few times a week Substance Use Type: denies use *Occupational Status:: other Housing: house Household Members: spouse *Travel in the last 8 weeks: None - Psychiatric History Pschychiatric History:: Reports:: Anxiety Family Hx:: Hypertension, Stroke
== END ==
PROVIDERS: PCP Family Medicine; Visit Provider Clinical Nurse Specialist Family Health
DX: M77.9 Enthesopathy, unspecified
CPT/HCPCS: 99212

== ENCOUNTER → 2020-03-20 07:46 | Outpatient (CLI) | payer MEDICARE, SELFPAY ==
[2020-03-20 10:48] LABS: Coronavirus 19 IgG Antibody Negative (Negative); Coronavirus 19 IgM Antibody Negative (Negative)
== END ==
PROVIDERS: Visit Provider Internal Medicine Gastroenterology
DX: Z01.818 Encounter for other preprocedural examination (principal)
CPT/HCPCS: 36415; 86328

== ENCOUNTER 2020-03-23 07:02 | Day surgery (SDC) | payer MEDICARE, SELFPAY ==
[2020-03-17 14:06] VITALS: BMI 27.6
--- NOTE | 2020-03-17 15:05 | SUR.PREOP ---
Instructed to come in for COVID test 03/20, verbalized understanding.
[2020-03-23 07:18] VITALS: BP 138/73; PULSE 80; RESP 20; TEMP 36.7; O2SAT 94
[2020-03-23 08:05] VITALS: O2SAT 97
--- NOTE | 2020-03-23 08:08 | P.PN_ITS ---
[facility] Anesthesia Checklist - Patient Identification Patient Identification: Arm Band - Structural Data Admitted From: Home Planned Operative Procedure/s: egd/colonoscopy Consent for Planned Operative Procedure(s) Verified: Yes Verified Documents: Surgical Consent, History and Physical - NPO Status Verified Time NPO: 00:00 - Additional verifications Anesthesia Reactions: No Hx Blood Transfusions: No Blood Transfusion Reaction: No - Airway Assessment C-Spine Mobility Assessed: Yes (mp2) TMJ Mobility Assessed: Yes Dentition: Good Dentition - Neurological Assessment Level of Consciousness: Awake, Alert - Anesthesia Plan Anesthesia Risk discussed: Yes Anesthesia Plan: Verified ASA Class: III Anesthesia Type: MAC [facility] History I have reviewed the patient's past medical history: Yes Medical History: Reports:: Anxiety, Asthma, Chronic Obstructive Pulmonary Disease (COPD), Gastroesophageal Reflux Disease(GERD), Hyperlipidemia, Hypertension Denies:: Cancer, Diabetes Mellitus Type 1, Diabetes Mellitus Type 2, Internal Pacemaker, MRSA, Seizures *Have you ever received a pneumonia vaccine?: Yes *Have you received a flu vaccine this season?: Yes Other Medical History: Reports: Arthritis, Hypothyroidism, Sinus Problems, Thyroid Disease. Denies: Blood Transfusion Reaction Anesthesia experience/problems:: nac Laterality Cases: Right: Arthroscopy Knee, Bilateral: Tonsillectomy Other Surgeries: Yes: Cardiac Catheterization, Cholecystectomy, Hernia Repair, Other (cholecystectomy). No: Pacemaker Amputation: No Fractures: No - *Social History Smoking Status: Former smoker Tobacco Type: smokeless tobacco Alcohol Intake: current Alcohol Intake Frequency:: holidays/special occasions only Substance Use Type: denies use *Occupational Status:: retired Housing: house Household Members: spouse *Travel in the last 8 weeks: None - Psychiatric History Pschychiatric History:: Reports:: Anxiety Family Hx:: Hypertension, Stroke, Cancer, Anemia, Hyperlipidemia, Coronary Artery Disease
--- NOTE | 2020-03-23 08:11 | P.PCN_ITS ---
[facility] Procedure Note Procedure Note:: Upper Endoscopy Procedure Report: Esophagogastroduodenoscopy with cold biopsies and TTS balloon dilation Endoscopost: Pedro Marinelli II, MD Referring Physician: Ray Dior MD Date of Procedure: March 23, 2020 Equipment: Olympus GIF 180 standard upper endoscope Sedation: MAC sedation Indications: Mr. Vaughn is a 69-year-old gentleman with a history of GERD and dyspepsia. 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 He has a history of bloating, belching and early satiety. He does get some dysphagia and globus sensation. He does state that the omeprazole is not working well presently for his heartburn and dyspepsia. His constipation is treated with Linzess and MiraLAX. He does not feel that the MiraLAX is working as well. He reports no melena or unintentional weight loss. His last panendoscopy was October 2016. Procedure: Prior to the procedure, a history and physical exam was performed, and patient's medications and allergies were reviewed. The risks, benefits and alternatives of the sedation and procedure were discussed with the patient. All questions were answered and informed consent was obtained. The patient was brought to the procedure room. Patient identification and proposed procedure were verified by the physician and the nurse. The patient was placed in a left lateral decubitus position and the scope was passed under direct vision. Throughout the procedure, the patient's blood pressure, pulse, and oxygen saturations were monitored continuously. The upper GI endoscopy was accomplished without difficulty. The patient tolerated the procedure well. Findings: The scope was passed directly into the upper esophagus and advanced to the third portion of the duodenum. The post bulbar duodenum and duodenal bulb were normal with normal mucosa and conniventes. The scope was withdrawn through a normal duodenal bulb and pylorus into the stomach. There was moderate bile reflux with linear reactive gastropathy of the antrum and moderate gastropathy and mild chronic gastritis of the body and fundus. The remainder of the antrum, body and fundus of the stomach were grossly normal. Upon retroflexion there was no hiatal hernia. 2 biopsies were taken in the antrum and along the lesser curvature for histology to rule out gastritis and/or H pylori. The scope was then withdrawn into the esophagus. There was no evidence of reflux esophagitis or Garcia's. There was no Schatzki's ring. There were tertiary contractions and evidence of moderate esophageal dysmotility. The entire esophagus was dilated to 60 Kinyarwanda/20 mm with a TTS hydrostatic balloon. There was some resistance at the cricopharyngeus. The remainder of the esophageal mucosa was normal. Impression: 1. Cricopharyngeal spasm status post dilation to 20 mm 2. Nonerosive GERD with moderate esophageal dysmotility 3. Bile reflux with moderate linear reactive gastropathy Plan: The patient does have functional dyspepsia and functional GERD. We will discuss additional treatment options. This may include promotility therapy. I will follow-up the biopsies. I will proceed with surveillance colonoscopy.
--- NOTE | 2020-03-23 08:32 | HMH.PROC ---
[facility] Procedure Note Procedure Note:: Colonoscopy Procedure Report: Colonoscopy with cold snare polypectomy Endoscopist: Pedro Marinelli II, MD Referring physician: Ray Dior MD Date of Procedure: March 23, 2020 Equipment: Olympus 180 variable stiffness pediatric colonoscope Sedation: MAC sedation Indication: Mr. Vaughn is a 69-year-old gentleman who is here for follow-up screening/surveillance colonoscopy. The patient did have a colonoscopy (by pa) in October 2016 and had 4 polyps (tubulovillous adenoma x1/tubular adenomas x3) removed. The patient had previously had a colonoscopy in [address] Von Hathaway M.D. and had 6 polyps (tubular adenomas x6) removed. His colonoscopy with Dr. Leggett in 2011 revealed no colon polyps. He continues to have some chronic constipation despite using Linzess and MiraLAX. He does report bloating. He does state that he has 3 maternal uncles that had colon cancer. The patient does report some dyspepsia and right-sided abdominal pain. This is chronic. Procedure: Prior to the procedure, a history and physical exam was performed, and patient's medications and allergies were reviewed. The risks, benefits and alternatives of the sedation and procedure were discussed with the patient. All questions were answered and informed consent was obtained. The patient was brought to the procedure room. Patient identification and proposed procedure were verified by the physician and the nurse. The patient was placed in a left lateral decubitus position and the scope was passed under direct vision. Throughout the procedure, the patient's blood pressure, pulse, and oxygen saturations were monitored continuously. The colonoscopy was accomplished without difficulty. The patient tolerated the procedure well. Findings: On digital rectal examination there was normal rectal tone. There were no external hemorrhoids. The colonoscope was introduced through the anal canal to the rectum and advanced to the cecum. The ileocecal valve and appendiceal orifice were identified. The scope was advanced a short distance into the ileum which appeared grossly normal. The scope was then withdrawn into the colon. There was a 4 mm polyp in the cecum removed via cold snare polypectomy. The remaining ascending and transverse colon and mucosa were grossly normal. There were extensive scattered diverticuli throughout the descending and sigmoid colon (LEFT colon). The rectum itself was normal. Upon retroflexion within the rectum there were grade 1-2 internal hemorrhoids. The preparation was excellent throughout with Hammond Preparation Score of 9. The cecal time was 11 minutes. Impression: 1. Diminutive cecal polyp 2. Left-sided diverticulosis 3. Grade 1-2 internal hemorrhoids Plan: I will follow-up the polyp histology and recommend repeat screening/surveillance colonoscopy again in 5 years based upon his family history and history of advanced adenomatous and adenomatous colon polyps. 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 We will discuss additional treatment options and I would encourage combined MiraLAX plus bulk fiber (Konsyl) twice daily rather than once daily.
[2020-03-23 08:35] VITALS: BP 84/46; PULSE 66; RESP 12; TEMP 36.4; O2SAT 94
[2020-03-23 08:45] VITALS: BP 96/66; PULSE 67; RESP 16; O2SAT 97
[2020-03-23 08:55] VITALS: BP 112/71; PULSE 67; RESP 16; O2SAT 96
[2020-03-23 09:05] VITALS: BP 127/69; PULSE 64; RESP 16; TEMP 36.3; O2SAT 97
== END 2020-03-23 09:05 | disposition home or self-care (01) ==
LOC: OUTP 07:04
PROVIDERS: PCP Family Medicine; Visit Provider Internal Medicine Gastroenterology
PROC: 0DJ08ZZ Inspection of Upper Intestinal Tract, Via Natural or Artificial Opening Endoscopic (ICD-10-PCS; CPT 43235; principal; 2020-03-23 08:00)
DX: Z12.11 Encounter for screening for malignant neoplasm of colon (principal); Z87.19 Personal history of other diseases of the digestive system; Z86.010 Personal history of colon polyps; K63.5 Polyp of colon; K57.30 Diverticulosis of large intestine without perforation or abscess without bleeding; K64.0 First degree hemorrhoids; K21.9 Gastro-esophageal reflux disease without esophagitis; J39.2 Other diseases of pharynx; K22.2 Esophageal obstruction; K31.9 Disease of stomach and duodenum, unspecified; J44.9 Chronic obstructive pulmonary disease, unspecified; I10 Essential (primary) hypertension
CPT/HCPCS: 43239; 43249; 45385; 88305; C1726; J2704

== ENCOUNTER → 2020-04-14 08:28 | Outpatient (POV) | payer MEDICARE, SELFPAY | PROVIDERS: PCP Family Medicine; Visit Provider Dermatology | DX: Z00.00 Encounter for general adult medical examination without abnormal findings (principal) ==

== ENCOUNTER → 2020-09-05 07:06 | Outpatient (CLI) | payer MEDICARE, SELFPAY ==
[2020-09-05 09:13] LABS: Coronavirus 19 IgG Antibody Negative (Negative); Coronavirus 19 IgM Antibody Negative (Negative)
== END ==
PROVIDERS: Visit Provider Urology
DX: N40.1 Benign prostatic hyperplasia with lower urinary tract symptoms (principal); Z01.818 Encounter for other preprocedural examination; Z03.818 Encounter for observation for suspected exposure to other biological agents ruled out
CPT/HCPCS: 36415; 86328

== ENCOUNTER 2020-09-07 08:31 | Day surgery (SDC) | payer MEDICARE, SELFPAY ==
[2020-09-01 08:59] VITALS: BMI 27.6
[2020-09-07 09:25] VITALS: BP 139/75; PULSE 65; RESP 18; TEMP 36.3; O2SAT 97
[2020-09-07 10:00] VITALS: BP 135/80; PULSE 65; RESP 16; TEMP 36.1; O2SAT 96
[2020-09-07 10:12] VITALS: BP 148/75; PULSE 66; RESP 16; O2SAT 96
--- NOTE | 2020-09-07 10:51 | HMH.OPNOTE ---
Date of procedure: 09/07/20 Pre-op Diagnosis:: BPH with lower urinary tract symptoms Post-op Diagnosis:: BPH with lower urinary tract symptoms Procedure performed:: Flexible cystoscopy Surgeon:: Salo Brown MD Anesthesia: local Estimated blood loss (mL): 0 Clinical Note:: Patient is a 69-year-old white male with lower urinary tract symptoms consisting mainly of urinary hesitancy and stopping and starting. His bladder scan showed only a 33 cc residual. He presents for cystoscopic evaluation to determine if urologic surgery would be helpful. Operative findings:: Patient with coapting prostate lobes with a small median lobe present. No evidence of trabeculation, cellules or diverticula. Operative note:: Patient taken to the cystoscopy suite after informed consent was obtained. On the stretcher he was prepped and draped in the standard surgical fashion and 2% lidocaine placed into the urethra and clamped for 5 minutes. After 5 minutes the flexible cystoscope introduced into the urethral meatus and passed to the prostatic urethra which showed coapting prostatic lobes. Small median lobe was present. The bladder was entered and examined in a systematic fashion. There is no evidence of trabeculation, cellules or diverticula. Ureteral orifices in their normal anatomic position with clear efflux of urine. Prostate was again examined on the way out of the bladder. The prostate did not appear to be a very long prostate. Scope removed and the patient tolerated the procedure well. We discussed the findings today. We discussed TURP versus UroLift option. Condition: stable Disposition: same day Specimens:: None Complications:: None
== END 2020-09-07 10:14 | disposition home or self-care (01) ==
LOC: OUTP 08:33
PROVIDERS: PCP Family Medicine; Visit Provider Urology
PROC: (CPT 52000; principal; 2020-09-07 09:30)
DX: N40.1 Benign prostatic hyperplasia with lower urinary tract symptoms; R39.11 Hesitancy of micturition; J44.9 Chronic obstructive pulmonary disease, unspecified; E78.5 Hyperlipidemia, unspecified; I10 Essential (primary) hypertension; K21.9 Gastro-esophageal reflux disease without esophagitis; F41.9 Anxiety disorder, unspecified; M19.90 Unspecified osteoarthritis, unspecified site; E03.9 Hypothyroidism, unspecified; Z88.6 Allergy status to analgesic agent; Z79.899 Other long term (current) drug therapy; Z87.39 Personal history of other diseases of the musculoskeletal system and connective tissue
CPT/HCPCS: 52000

== ENCOUNTER 2021-01-02 09:09 | Emergency (ER) | payer MEDICARE, SELFPAY ==
[2021-01-02 09:11] VITALS: BP 148/75; PULSE 71; RESP 18; TEMP 36.4; O2SAT 96; BMI 29.0
--- NOTE | 2021-01-02 09:13 | HMH.EDGENADL ---
ED Disposition Clinical Impression: Ureterolithiasis Disposition: Home, Self-Care Condition on Discharge: Good Additional Instructions: Follow-up with your regular doctor on Monday. Strain your urine. Take medications as directed. Return to the emergency department for fever, worse nausea or vomiting. Referrals: Manuelito Dior MD [Primary Care Provider] - 3 days Time of Disposition: 12:09 - Critical Care Critical Care Time: No Attestation: On , the high probability of a clinically significant, sudden or life threatening deterioration of the following system(s) required my full and direct attention, intervention and personal management. The time I documented below is in addition to time spent performing reported procedures but includes the following listed in this critical care notation. Medical Decision Making - Medical Records Medical records reviewed: Yes: I reviewed the patient's medical records. - Ezio Inquiry Pt receiving controlled substance: No Vital Signs: 01/02/21 09:11 01/02/21 09:30 01/02/21 09:38 Temperature 97.6 F Temperature Source Oral Pulse Rate 69 68 Pulse Rate [Right Radial] 71 Respiratory Rate 18 Blood Pressure 159/89 H 153/85 H Blood Pressure [Right Arm] 148/75 H Blood Pressure Mean 112 114 Blood Pressure Mean [Right Arm] 99 Blood Pressure Source [Right Arm] Automatic Cuff Blood Pressure Position [Right Arm] Sitting 02 Sat by Pulse Oximetry 96 94 L 93 L Oxygen Delivery Method Room Air 01/02/21 10:00 01/02/21 10:30 Temperature Temperature Source Pulse Rate 68 75 Pulse Rate [Right Radial] Respiratory Rate 20 20 Blood Pressure 139/74 173/87 H Blood Pressure [Right Arm] Blood Pressure Mean 95 115 Blood Pressure Mean [Right Arm] Blood Pressure Source [Right Arm] Blood Pressure Position [Right Arm] 02 Sat by Pulse Oximetry 92 L 94 L Oxygen Delivery Method Room Air Room Air - Lab Data Lab results reviewed: Yes: I reviewed the patient's lab results. Lab Results 01/02/21 09:20: WBC 9.4, RBC 5.28, Hgb 15.5, Hct 46.8, MCV 88.5, MCH 29.4, MCHC 33.3, RDW 13.0, Plt Count 248, MPV 9.6, Neut % (Auto) 76.9, Lymph % (Auto) 14.9, Falls % (Auto) 4.5, Eos % (Auto) 3.1, Baso % (Auto) 0.5, Neut # (Auto) 7.2, Lymph # (Auto) 1.4, Falls # (Auto) 0.4, Eos # (Auto) 0.3, Baso # (Auto) 0.1 01/02/21 09:20: Sodium 138, Potassium 4.3, Chloride 103, Carbon Dioxide 27, Anion Gap 12.3, BUN 17, Creatinine 1.30 H, Estimated Creat Clear 61, Estimated GFR 54 L, Est GFR ( Amer) 66, Glucose 112 H, Calcium 9.4, Total Bilirubin 0.7, AST 37, ALT 30, Alkaline Phosphatase 49, Total Protein 6.9, Albumin 4.5, Globulin 2.4, Albumin/Globulin Ratio 1.9 H 01/02/21 09:20: Lipase 73 01/02/21 11:34: Urine Color Yellow, Urine Appearance Clear, Urine pH 5.5, Ur Specific [place] 1.020, Urine Protein Trace, Urine Glucose (UA) Negative, Urine Ketones Negative, Urine Blood 3+, Urine Nitrate Negative, Urine Bilirubin Negative, Urine Urobilinogen 0.2, Ur Leukocyte Esterase Negative, Urine RBC 50-100, Urine WBC None, Ur Squamous Epith Cells Occasional, Amorphous Sediment 1+, Urine Bacteria None Result diagrams: 01/02/21 09:20 01/02/21 09:20 Orders (Tests/Meds): ED MEDICATIONS Discontinued Medications Generic Name Dose Route Start Last Admin Trade Name Freq PRN Reason Stop Dose Admin Sodium Chloride 1,000 mls @ 999 mls/hr 01/02/21 10:15 01/02/21 10:34 Sod Chlor 0.9% 1000ml Bag IV 01/02/21 11:15 999 mls/hr .Q1H1M DIEGO Administration Iopamidol 75 ml 01/02/21 10:17 01/02/21 10:18 Iopamidol-370 (76%);100ml Bottle IV 01/02/21 10:18 75 ml ONCE ONE Administration Ketorolac Tromethamine 15 mg 01/02/21 09:13 01/02/21 09:22 Ketorolac 30mg/Ml Vial IV 01/02/21 09:14 15 mg ONCE ONE Administration Morphine Sulfate 4 mg 01/02/21 10:23 01/02/21 10:31 Morphine 4mg/Ml Syringe IV 01/02/21 10:24 4 mg ONCE ONE Administration Ondansetron HCl 4 mg
[2021-01-02 09:30] VITALS: BP 159/89; PULSE 69; O2SAT 94
[2021-01-02 09:34] LABS: Basophils # 0.1 K/mm3 (0-0.2); Basophils % 0.5 % (0.1-2.0); Eosinophils # 0.3 K/mm3 (0.0-0.4); Eosinophils % 3.1 % (0.1-12.0); Hematocrit 46.8 % (42.0-52.0); Hemoglobin 15.5 g/dL (14.1-18.0); Lymphocytes # 1.4 K/mm3 (0.7-4.5); Lymphocytes % 14.9 % (10-50); Mean Corpuscular HGB Conc 33.3 g/dL (31.8-35.4); Mean Corpuscular Hemoglobin 29.4 pg (27.0-31.2); Mean Corpuscular Volume 88.5 fl (80-94); Mean Platelet Volume 9.6 fl (7.4-10.4); Monocytes # 0.4 K/mm3 (0.1-1.0); Monocytes % 4.5 % (1.7-9.3); Neutrophils # 7.2 K/mm3 (1.8-7.8); Neutrophils % 76.9 % (37.0-80.0); Platelet Count 248 K/mm3 (142-424); Red Blood Count 5.28 M/mm3 (4.60-6.20); White Blood Count 9.4 K/mm3 (4.8-10.8)
[2021-01-02 09:36] LABS: Chloride 103 mmol/L (98-107); Sodium 138 mmol/L (136-145)
[2021-01-02 09:37] LABS: Potassium 4.3 mmoL/L (3.5-5.1)
[2021-01-02 09:38] VITALS: BP 153/85; PULSE 68; O2SAT 93
[2021-01-02 09:39] LABS: Alanine Aminotransferase 30 U/L (12-78); Alkaline Phosphatase 49 U/L (38-126); Anion Gap 12.3 mEq/L (5-15); Aspartate Amino Transferase 37 U/L (17-59); Bilirubin,Total 0.7 mg/dl (0.2-1.3); Blood Urea Nitrogen 17 mg/dl (9-20); Carbon Dioxide 27 mmol/L (22.0-30.0); Creatinine Clearance Estimated 61 mL/min (50-200); Estimated Glomerular Filt Rate 54 ml/min (>60); GFR (African American) 66 ML/MIN (>60); Lipase 73 U/L (23-300)
[2021-01-02 09:40] LABS: Albumin Level 4.5 g/dl (3.5-5.0); Albumin/Globulin Ratio 1.9 (1.1-1.8); Calcium 9.4 mg/dl (8.4-10.2); Globulin 2.4 g/dL (1.3-3.2); Glucose 112 mg/dl (74-100); Total Protein,Serum 6.9 g/dl (6.3-8.2)
--- NOTE | 2021-01-02 09:56 | CT_ITS ---
PROCEDURE: CT ABDOMEN PELVIS W CON CLINICAL INDICATION: R abd/flank pain, right-sided abdominal pain with nausea Right flank pain COMPARISON: CT ABDPELW/O CT ABD PELVIS W/O CONTRAST from 08/14/2017 TECHNIQUE: IV Contrast: 75ML Isovue 370 Oral Contrast None Axial images obtained with sagittal and coronal reformats. All CT scans at the facility use one or more dose reduction, viz: automated exposure control, ma/kV adjustment per patient size (including targeted exams where dose is matched to indication, i.e. head), or iterative reconstruction technique. FINDINGS: LOWER THORAX: There are minimal fibrotic changes in the lung bases. There is calcified granuloma in the left lung base. ABDOMEN & PELVIS: Prior cholecystectomy. The liver, spleen, adrenal glands, and pancreas have an unremarkable appearance. There is mild right hydronephrosis and hydroureter secondary to a 3 mm stone in the distal right ureter 2 cm proximal to the ureterovesical junction. There is mild stranding of the right perinephric and proximal periureteral fat. The left kidney has an unremarkable appearance aside from a tiny cortical cyst anteriorly at 4 mm. No intestinal obstruction or free air. There is fluid present within the colon with a few air-fluid levels suggesting colitis/diarrhea disease. No evidence of appendicitis. There is colonic diverticulosis. No evidence of diverticulitis. The prostate is approximately 4.9 by 3.7 cm. There is fusiform dilatation of the infrarenal abdominal aorta which measures to 3.2 cm in AP dimension previously measuring 2.7 cm in AP dimension.. There is a small fusiform component along the left lateral aspect of the lower abdominal aorta containing mural thrombus. There is some peripheral mural slightly irregular thrombus in the immediate infrarenal portion of the abdominal aorta on the left. The common iliacs are unremarkable. IMPRESSION: 1. 3 mm right distal ureteral calculus with mild right-sided hydro ureteral nephrosis 2. Colonic diverticulosis with air-fluid levels within the colon which may be due to colitis/diarrhea disease. No evidence of diverticulitis. 3. Infrarenal abdominal aortic aneurysm having both fusiform and saccular component measuring up to 3 cm in AP dimension increased previously 2.7 cm Dictated by: Luis F Palmer MD 01/02/2021 10:37 Luis F Palmer MD in [place] 01/02/2021 10:37
[2021-01-02 10:00] VITALS: BP 139/74; PULSE 68; RESP 20; O2SAT 92
[2021-01-02 10:30] VITALS: BP 173/87; PULSE 75; RESP 20; O2SAT 94
[2021-01-02 11:42] LABS: Microscopic, Urine URINE MICROSCOPIC (MICROSCOPIC)
[2021-01-02 11:45] LABS: Appearance,Urine CLEAR (Clear); Bilirubin,Urine Negative (Negative); Blood, Urine 3+ (Negative); Color,Urine YELLOW (Yellow); Glucose,Urine (UA) Negative (Negative); Ketones,Urine Negative (Negative); Leukocyte Esterase,Urine Negative (Negative); Nitrate,Urine Negative (Negative); PH,Urine 5.5 (5.0-8.5); Protein,Urine TRACE (Negative); Urobilinogen,Urine 0.2 EU/dl (0.2)
[2021-01-02 11:55] LABS: Amorphous Sediment,Urine 1+ /lpf; RBC,Urine 50-100 #/hpf (0-3); Squamous Epithelial Cell,Urine Occasional #/hpf (0-5)
[2021-01-02 12:18] VITALS: BP 153/80; PULSE 78; RESP 18; TEMP 36.7; O2SAT 97
== END 2021-01-02 12:25 | disposition home or self-care (01) ==
PROVIDERS: Emergency Provider Family Medicine; PCP Family Medicine
DX: N20.1 Calculus of ureter (principal); K58.9 Irritable bowel syndrome, unspecified; J44.9 Chronic obstructive pulmonary disease, unspecified; K21.9 Gastro-esophageal reflux disease without esophagitis; E78.5 Hyperlipidemia, unspecified; F41.9 Anxiety disorder, unspecified; I10 Essential (primary) hypertension; Z87.891 Personal history of nicotine dependence
CPT/HCPCS: 74177; 80053; 81001; 83690; 85025; 96365; 96375; 99283; J2405; Q9967

== ENCOUNTER → 2021-01-05 08:26 | Outpatient (CLI) | payer MEDICARE, SELFPAY ==
--- NOTE | 2021-01-05 08:33 | XR_ITS ---
PROCEDURE: XR KUB CLINICAL INDICATION: kidney stone COMPARISON: CT CT ABDOMEN PELVIS W CON from 01/02/2021 FINDINGS: There are surgical clips in the right upper quadrant in multiple metallic small coils in the right mid abdominal region. There is a faint density in the right pelvic region just lateral to the sacrum measuring approximately 3 mm and may be due to a residual ureteral stone. IMPRESSION: Suspect residual distal ureteral stone on the right at 3 mm. Dictated by: Luis F Palmer MD 01/05/2021 08:52 Luis F Palmer MD in [place] 01/05/2021 08:52
== END ==
LOC: RAD 08:30
PROVIDERS: PCP Family Medicine; Visit Provider Urology
DX: N20.0 Calculus of kidney (principal)
CPT/HCPCS: 74018

== ENCOUNTER → 2021-01-07 07:37 | Outpatient (CLI) | payer MEDICARE, SELFPAY ==
[2021-01-07 08:45] LABS: Basophils % 0.4 % (0.1-2.0); Eosinophils # 0.4 K/mm3 (0.0-0.4); Eosinophils % 5.5 % (0.1-12.0); Hematocrit 42.2 % (42.0-52.0); Hemoglobin 13.5 g/dL (14.1-18.0); Lymphocytes % 15.3 % (10-50); Mean Corpuscular HGB Conc 32.1 g/dL (31.8-35.4); Mean Corpuscular Hemoglobin 30.1 pg (27.0-31.2); Mean Corpuscular Volume 93.5 fl (80-94); Mean Platelet Volume 9.2 fl (7.4-10.4); Monocytes # 0.4 K/mm3 (0.1-1.0); Monocytes % 5.8 % (1.7-9.3); Neutrophils # 4.7 K/mm3 (1.8-7.8); Platelet Count 230 K/mm3 (142-424); Red Blood Count 4.51 M/mm3 (4.60-6.20); White Blood Count 6.4 K/mm3 (4.8-10.8)
[2021-01-07 09:13] LABS: Chloride 103 mmol/L (98-107); Potassium 4.5 mmoL/L (3.5-5.1); Sodium 139 mmol/L (136-145)
[2021-01-07 09:16] LABS: Anion Gap 12.5 mEq/L (5-15); Blood Urea Nitrogen 29 mg/dl (9-20); Carbon Dioxide 28 mmol/L (22.0-30.0); Estimated Glomerular Filt Rate 28 ml/min (>60); GFR (African American) 34 ML/MIN (>60)
[2021-01-07 09:17] LABS: Calcium 9.3 mg/dl (8.4-10.2); Glucose 140 mg/dl (74-100)
[2021-01-07 09:32] LABS: Coronavirus 19 IgG Antibody Positive (Negative); Coronavirus 19 IgM Antibody Negative (Negative)
== END ==
PROVIDERS: Visit Provider Urology
DX: N20.1 Calculus of ureter (principal); N20.0 Calculus of kidney; Z01.812 Encounter for preprocedural laboratory examination; Z20.822 Contact with and (suspected) exposure to COVID-19
CPT/HCPCS: 36415; 80048; 85025; 86328

== ENCOUNTER 2021-01-08 10:14 | Day surgery (SDC) | payer MEDICARE, SELFPAY ==
[2021-01-06 11:28] VITALS: BMI 29.7
[2021-01-08] VITALS (9 sets, daily range): BP systolic 123–164; BP diastolic 65–83; PULSE 82–98; RESP 12–18; TEMP 36.6–37.1; O2SAT 84–96
--- NOTE | 2021-01-08 14:07 | XR_ITS ---
PROCEDURE: XR KUB CLINICAL INDICATION: URETEROSCOPY COMPARISON: No exams were available for comparison FINDINGS: Right ureteral stent was inserted under fluoroscopic guidance. Fluoroscopy time: 1 minutes and 21 seconds. 2 images are submitted with the distal aspect of the ureteral stent visualized IMPRESSION: Status post ureteral stent placement with C-arm assistance Dictated by: Luis F Palmer MD 01/08/2021 15:31 Luis F Palmer MD in [place] 01/08/2021 15:31
--- NOTE | 2021-01-08 14:49 | PC.NURSE ---
Ureteral stent string visible. No issues at this time.
--- NOTE | 2021-01-08 14:54 | HMH.OPNOTE ---
Date of procedure: 01/08/21 Pre-op Diagnosis:: Right distal ureteral stone Post-op Diagnosis:: Right distal ureteral stone, right ureteral stenosis Procedure performed:: Cystoscopy with right ureteroscopy, dilation of ureteral stenosis, stone extraction and right stent placement Surgeon:: Salo Brown MD FIELD KILN BURNER:: Other Anesthesia: LMA Estimated blood loss (mL): 0 Clinical Note:: 70-year-old white male with right renal colic noted to have a 3 mm distal ureteral stone. He wished to proceed with urologic management. Operative findings:: The ureteral stone was noted above a ureteral narrowing. Ureter was dilated and the stone removed. A stent was placed postoperatively. Operative note:: Patient taken to the operating room after informed consent was obtained. Was placed on the operating table in supine position and general anesthesia administered. Preoperative antibiotics and sequential compression devices placed. Was then placed into the dorsolithotomy position prepped and draped in the standard surgical fashion. The distal urethra was dilated with [place]more[place]cy sounds to 28 Japanese. The 22 Japanese cystoscope then passed into the urethra and into the bladder without difficulty. The bladder was examined in a systematic fashion. No evidence of stones, diverticula or trabeculation. The ureteral orifices in their normal anatomic position. A guidewire was placed through the scope and into the right ureter. Under fluoroscopy it passed calcification in the distal ureter and into the renal pelvis without difficulty. Was noted to be some brownish sediment from the ureter after placement of the guidewire. We then removed the cystoscope and our semirigid ureteroscope passed into the bladder and into the right ureter but the ureter was stenotic about 2 cm upwards so the ureteroscope was removed and our 4 x 15 mm UroMax balloon dilator passed over the guidewire and the ureter dilated to 12 brendon for 2 minutes. The balloon was then deflated and removed and her semirigid ureteroscope was repassed into the right ureter and up to the level of the stone. Stone was grasped with a 2.4 Japanese nitinol stone basket and removed without difficulty. The cystoscope was passed back into the bladder and there was minimal urine output from the right ureteral orifice so a stent was placed. A 4.8 x 24 Japanese stent was passed over the guidewire and the guidewire removed. A good curl was noted proximally and distally. The string was left on for later removal. The patient tolerated procedure well there are no complications Condition: stable Disposition: PACU Specimens:: Ureteral stone Complications:: None
--- NOTE | 2021-01-08 15:19 | P.PN_ITS ---
[facility] Anesthesia Checklist - Patient Identification Patient Identification: Arm Band - Structural Data Admitted From: Home Planned Operative Procedure/s: Right ureteroscopy Consent for Planned Operative Procedure(s) Verified: Yes Verified Documents: Surgical Consent, History and Physical - Additional verifications Anesthesia Reactions: No Hx Blood Transfusions: No Blood Transfusion Reaction: No - Airway Assessment C-Spine Mobility Assessed: Yes TMJ Mobility Assessed: Yes Dentition: Edentulous - Anesthesia Plan Anesthesia Risk discussed: Yes Anesthesia Plan: Verified ASA Class: II Anesthesia Type: General [facility] History Medical History: Reports:: Anxiety, Asthma, Chronic Obstructive Pulmonary Disease (COPD), Gastroesophageal Reflux Disease(GERD), Hyperlipidemia, Hypertension, Kidney Stones Denies:: Cancer, Diabetes Mellitus Type 1, Diabetes Mellitus Type 2, Internal Pacemaker, MRSA, Seizures *Have you ever received a pneumonia vaccine?: Yes *Have you received a flu vaccine this season?: Yes Other Medical History: Reports: Arthritis, Hypothyroidism, Sinus Problems, Thyroid Disease. Denies: Blood Transfusion Reaction Anesthesia experience/problems:: None Laterality Cases: Bilateral: Arthroscopy Knee, Tonsillectomy Other Surgeries: Yes: No Previous Surgery, Cardiac Catheterization, Cholecystectomy, Colonoscopy, Hernia Repair, Other (cholecystectomy). No: Pacemaker Amputation: No Fractures: No - *Social History Smoking Status: Heavy tobacco smoker Tobacco Type: smokeless tobacco # Packs/Day (cigarettes): 1 Alcohol Intake: never Alcohol Intake Frequency:: a few times a week Substance Use Type: denies use *Occupational Status:: retired Housing: house Household Members: spouse *Travel in the last 8 weeks: None - Psychiatric History Pschychiatric History:: Reports:: Anxiety Family Hx:: Hypertension, Stroke, Cancer, Anemia, Hyperlipidemia, Coronary Artery Disease
--- NOTE | 2021-01-08 15:20 | P.PN_ITS ---
[facility] Anesthesia Record Part I Intake, IV Amount: 800 Estimated blood loss (mL): 2 Urine output (mL): 0 Blood Products used (#): none Blood Pressure: 132/72 SaO2: 94 Pulse Rate: 98 Respiratory Rate: 12 Temperature: 98.2 F Patient is:: Awake, Drowsy Stable to PACU at:: 14:20
--- NOTE | 2021-01-11 08:15 | HMH.ANESII ---
[facility] Anesthesia Record Part II Discharge Time: 16:40 Destination: Surgical Day Care (OP Surgery) PACU nurse assessment reviewed?: Yes Patient Condition:: Good Anesthesia Complications:: None Swallowing reflex intact?: Yes Cyanosis?: No Blood Pressure: 123/66 Pulse Rate: 88 Temperature: 98.2 F Mental Status: Alert & Oriented Pain level:: 0 Nausea and/or vomitting:: None Intake, IV Amount: 0
[2021-01-11 08:16] VITALS: BP 123/66; PULSE 88; TEMP 36.8
[2021-02-06 16:45] LABS: Ca oxalate dihydrate 20; Size 4X3 mm; Specimen Type Right Ureter
== END 2021-01-08 15:11 | disposition home or self-care (01) ==
LOC: OR 10:16
PROVIDERS: PCP Family Medicine; Visit Provider Urology
PROC: (CPT 52352; principal; 2021-01-08 11:45)
DX: N20.1 Calculus of ureter (principal); F41.9 Anxiety disorder, unspecified; J44.9 Chronic obstructive pulmonary disease, unspecified; K21.9 Gastro-esophageal reflux disease without esophagitis; E78.5 Hyperlipidemia, unspecified; I10 Essential (primary) hypertension; M19.90 Unspecified osteoarthritis, unspecified site; E03.9 Hypothyroidism, unspecified; Z82.3 Family history of stroke; Z80.9 Family history of malignant neoplasm, unspecified; Z82.49 Family history of ischemic heart disease and other diseases of the circulatory system; Z83.438 Family history of other disorder of lipoprotein metabolism and other lipidemia
CPT/HCPCS: 52320; 53855; 74018; 76000; 82370; 96374; C1769; C2617; J0131; J2405

== ENCOUNTER → 2021-01-20 07:05 | Outpatient (CLI) | payer MEDICARE, SELFPAY ==
[2021-01-20 08:45] LABS: Anion Gap 9.4 mEq/L (5-15); Blood Urea Nitrogen 20 mg/dl (9-20); Calcium 9.8 mg/dl (8.4-10.2); Carbon Dioxide 31 mmol/L (22.0-30.0); Chloride 103 mmol/L (98-107); Estimated Glomerular Filt Rate 60 ml/min (>60); GFR (African American) 72 ML/MIN (>60); Glucose 102 mg/dl (74-100); Potassium 4.4 mmoL/L (3.5-5.1); Sodium 139 mmol/L (136-145)
== END ==
PROVIDERS: Visit Provider Urology
DX: N20.0 Calculus of kidney (principal)
CPT/HCPCS: 36415; 80048

== ENCOUNTER → 2021-03-24 10:41 | Outpatient (CLI) | payer MEDICARE, SELFPAY ==
--- NOTE | 2021-03-24 10:44 | XR_ITS ---
PROCEDURE: XR CHEST 2V CLINICAL HISTORY: WHEEZING COMPARISON: CR CXR CHEST(2 VIEWS-NOT PORTABLE) from 02/13/2017 DX CXR CHEST(2 VIEWS-NOT PORTABLE) from 07/18/[address] chest w con from 01/30/2018 CR [id number] XR chest portable from 04/23/2018 FINDINGS: The cardiomediastinal silhouette and pulmonary vascularity are within normal limits. There is hyperlucency of the lungs suggesting small airway disease. Pericardial fat pad noted on the left with a calcified granuloma in the lingular region. No acute bony abnormalities. IMPRESSION: No change with no acute finding. There is suggestion of small airway disease such is asthma, bronchitis, or COPD with hyperlucency of the lungs Dictated by: Luis F Palmer MD 03/24/2021 11:43 Luis F Palmer MD in [place] 03/24/2021 11:43
== END ==
PROVIDERS: PCP Family Medicine; Visit Provider Physician Assistant
DX: R06.2 Wheezing (principal)
CPT/HCPCS: 71046

== ENCOUNTER → 2021-05-13 08:30 | Outpatient (POV) | payer MEDICARE, SELFPAY ==
[2021-05-13 08:49] VITALS: BP 145/78; PULSE 77; RESP 18; O2SAT 96; BMI 29.2
--- NOTE | 2021-05-13 10:21 | HMH.PAINSOAP ---
[facility] Pain Management SOAP Note Subjective:: Patient is a pleasant 69-year-old white male who presents today for follow-up. The patient is being treated for chronic shoulder pain with osteoarthritis bilateral shoulders. Patient does rate his pain a 7 out of 10. He says he is having limited range of motion with numbness and tingling in both hands due to the pain He does take [id number] medications for pain relief, however, this does not give him much relief. He would like to schedule bilateral intra-articular shoulder injections. He reports he gets about 80 to 90% relief for about 6 months with the injections. Review of Systems General: No recent weight changes, no fever, no sleep disturbances Respiratory: No cough, no shortness of air, no recurring pulmonary infections Cardiovascular/peripheral vascular: No chest pain, no palpitations, no edema, no shortness of breath Gastrointestinal: No new onset incontinence, normal bowel movements reported Genitourinary: No new onset incontinence Musculoskeletal: Bilateral shoulder pain, numbness and tingling bilateral hands Psychiatric: [Normal mood/affect] Neurological: [Denies weakness in extremities], [denies balance issues] Objective:: Physical exam General: Alert and oriented x3, no acute distress, pleasant and cooperative, [on room air] Lungs: Respirations even and unlabored, symmetrical chest expansion Eyes: PERRL Musculoskeletal: Palpation bilateral shoulders somewhat guarded secondary to pain, strength in upper and lower extremities [5/5], limited range of motion bilateral upper extremities Neurological: Speech clear, [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 We will see him back in the clinic after his injections for reevaluation of symptoms. Patient does typically get approximately 6 months of relief with these injections. Possible side effects of corticosteroids have been discussed with the patient. Risks and benefits of the procedure have been explained to the patient. Patient would like to proceed with the procedure. Patient has been instructed to contact the clinic with any concerns before the next appointment. Dr. Camarena has reviewed this note and agrees with this plan of care. This note was dictated using voice recognition software and make contain errors or omissions. [facility] History I have reviewed the patient's past medical history: Yes Medical History: Reports:: Anxiety, Asthma, Chronic Obstructive Pulmonary Disease (COPD), Gastroesophageal Reflux Disease(GERD), Hyperlipidemia, Hypertension, Kidney Stones, Seizures Denies:: Cancer, Diabetes Mellitus Type 1, Diabetes Mellitus Type 2, Internal Pacemaker, MRSA *Have you ever received a pneumonia vaccine?: Yes *Have you received a flu vaccine this season?: No Other Medical History: Reports: Arthritis, Hypothyroidism, Sinus Problems, Thyroid Disease. Denies: Blood Transfusion Reaction Laterality Cases: Bilateral: Arthroscopy Knee, Tonsillectomy Other Surgeries: Yes: No Previous Surgery, Cardiac Catheterization, Cholecystectomy, Colonoscopy, Hernia Repair, Other (cholecystectomy). No: Pacemaker Amputation: No Fractures: No - *Social History Smoking Status: Heavy tobacco smoker Tobacco Type: smokeless tobacco # Packs/Day (cigarettes): 1 Alcohol Intake: never Alcohol Intake Frequency:: a few times a week Substance Use Type: denies use *Occupational Status:: unemployed Housing: house Household Members: spouse *Travel in the last 8 weeks: None - Psychiatric History Pschychiatric History:: Reports:: Anxiety Family Hx:: Hypertension, Stroke, Cancer, Anemia, Hyperlipidemia, Coronary Artery Disease
== END ==
PROVIDERS: Visit Provider Clinical Nurse Specialist Family Health
DX: M19.011 Primary osteoarthritis, right shoulder (principal); M19.012 Primary osteoarthritis, left shoulder
CPT/HCPCS: 99212; G0463

== ENCOUNTER 2021-05-21 09:06 | Day surgery (SDC) | payer MEDICARE, SELFPAY ==
[2021-05-21 09:16] VITALS: BP 133/73; PULSE 75; RESP 18; TEMP 36.3; O2SAT 94
[2021-05-21 09:40] VITALS: BP 135/70; PULSE 72; RESP 18
[2021-05-21 09:41] VITALS: PULSE 72; RESP 18; O2SAT 96
[2021-05-21 09:55] VITALS: BP 128/72; PULSE 71; RESP 18; O2SAT 94
--- NOTE | 2021-05-21 10:26 | P.PCN_ITS ---
- Procedure Date: 05/21/21 Time: 10:26 Anesthesiologist:: Robby Camarena MD Complications:: None Pre-procedure Diagnosis:: Bilateral shoulder pain with degenerative osteoarthritis Post-procedure Diagnosis:: Same Indications for Procedure:: Patient is a pleasant 70-year-old white male who we are treating for bilateral shoulder pain with degenerative osteoarthritis. We will do bilateral intra- articular shoulder injections followed by physical therapy to see if this helps with his bilateral shoulder pain. Procedure Details:: Bilateral shoulder intra-articular injections and suprascapular nerve block Informed consent was obtained risk and benefits of the procedure were explained to the patient. Patient was taken the procedure room. Both shoulders were pr epped using ChloraPrep. 25-gauge needle was used and we injected both shoulders and suprascapular nerves with 10 mL bupivacaine 0.25% and Depo-Medrol 40 mg. We use a total of 80 mg for both shoulders. Patient tolerated the procedure well with no complications. Plan and Disposition:: We will follow-up with him in 2 weeks. Will reevaluate symptoms at that time.
== END 2021-05-21 09:55 | disposition home or self-care (01) ==
LOC: SC.PAINP 09:07
PROVIDERS: PCP Family Medicine; Visit Provider Anesthesiology
DX: M19.011 Primary osteoarthritis, right shoulder (principal); M19.012 Primary osteoarthritis, left shoulder; E78.5 Hyperlipidemia, unspecified; I10 Essential (primary) hypertension; J44.9 Chronic obstructive pulmonary disease, unspecified; K21.9 Gastro-esophageal reflux disease without esophagitis; E03.9 Hypothyroidism, unspecified; Z72.0 Tobacco use; I25.10 Atherosclerotic heart disease of native coronary artery without angina pectoris; N40.0 Benign prostatic hyperplasia without lower urinary tract symptoms; Z88.6 Allergy status to analgesic agent; Z79.899 Other long term (current) drug therapy
CPT/HCPCS: 20610; J1030

== ENCOUNTER → 2021-08-17 09:42 | Outpatient (CLI) | payer MEDICARE, SELFPAY ==
[2021-08-17 11:46] LABS: Prostate Specific Ag Screen 3.1 ng/ml (0.0-4.0)
== END ==
PROVIDERS: Visit Provider Urology
DX: Z12.5 Encounter for screening for malignant neoplasm of prostate (principal)
CPT/HCPCS: 36415; G0103

== ENCOUNTER → 2021-08-21 07:03 | Outpatient (CLI) | payer MEDICARE, SELFPAY ==
[2021-08-21 07:07] LABS: MANUAL DIFFERENTIAL MANUAL DIFFERENTIAL (MANUAL DIFF)
[2021-08-21 07:21] LABS: Basophils % 0.4 % (0.1-2.0); Eosinophils # 0.1 K/mm3 (0.0-0.4); Eosinophils % 1.1 % (0.1-12.0); Hematocrit 46.5 % (42.0-52.0); Hemoglobin 15.7 g/dL (14.1-18.0); Lymphocytes # 1.6 K/mm3 (0.7-4.5); Lymphocytes % 21.5 % (10-50); Mean Corpuscular HGB Conc 33.7 g/dL (31.8-35.4); Mean Corpuscular Hemoglobin 30.7 pg (27.0-31.2); Mean Corpuscular Volume 91.1 fl (80-94); Monocytes # 0.4 K/mm3 (0.1-1.0); Monocytes % 4.8 % (1.7-9.3); Neutrophils # 5.4 K/mm3 (1.8-7.8); Neutrophils % 72.3 % (37.0-80.0); Platelet Count 262 K/mm3 (142-424); Red Blood Count 5.11 M/mm3 (4.60-6.20); White Blood Count 7.4 K/mm3 (4.8-10.8)
[2021-08-21 08:34] LABS: Eosinophils % 2 % (0-3); Lymphocytes % 18 % (10-50); Monocytes % 3 % (2-9); Neutrophils % 77 % (42-76); Platelet Estimate Normal; RBC Morphology Normal; Total Cells Counted 100
[2021-08-21 09:39] LABS: Chloride 104 mmol/L (98-107); Potassium 4.1 mmoL/L (3.5-5.1); Sodium 139 mmol/L (136-145)
[2021-08-21 09:42] LABS: Anion Gap 14.1 mEq/L (5-15); Blood Urea Nitrogen 21 mg/dl (9-20); Carbon Dioxide 25 mmol/L (22.0-30.0); Estimated Glomerular Filt Rate 60 ml/min (>60); GFR (African American) 72 ML/MIN (>60)
[2021-08-21 09:43] LABS: Calcium 9.8 mg/dl (8.4-10.2); Glucose 131 mg/dl (74-100)
== END ==
PROVIDERS: Visit Provider Urology
DX: N40.1 Benign prostatic hyperplasia with lower urinary tract symptoms (principal); Z01.812 Encounter for preprocedural laboratory examination; Z11.52 Encounter for screening for COVID-19; Z51.81 Encounter for therapeutic drug level monitoring
CPT/HCPCS: 36415; 80048; 85007; 85014; 85018; 85048; 85049; C9803; U0003; U0005

== ENCOUNTER 2021-08-23 10:47 | Day surgery (SDC) | payer MEDICARE, SELFPAY ==
[2021-08-23 11:19] VITALS: BP 141/77; PULSE 70; RESP 18; TEMP 36.6; O2SAT 94; BMI 29.4
--- NOTE | 2021-08-23 12:02 | P.PN_ITS ---
[facility] Anesthesia Checklist - Patient Identification Patient Identification: Arm Band - Structural Data Admitted From: Home Planned Operative Procedure/s: Urolift Consent for Planned Operative Procedure(s) Verified: Yes - NPO Status Verified Time NPO: 00:00 - Additional verifications Anesthesia Reactions: No Hx Blood Transfusions: No Blood Transfusion Reaction: No - Airway Assessment C-Spine Mobility Assessed: Yes TMJ Mobility Assessed: Yes Dentition: Edentulous - Neurological Assessment Level of Consciousness: Awake Hx Seizures: No Numbness or tingling in extremities: No - Anesthesia Plan Anesthesia Risk discussed: Yes Anesthesia Plan: Verified ASA Class: III Anesthesia Type: Local & MAC [facility] History I have reviewed the patient's past medical history: Yes Medical History: Reports:: Anxiety, Asthma, Chronic Obstructive Pulmonary Disease (COPD), Coronary Artery Disease, Gastroesophageal Reflux Disease(GERD), Hyperlipidemia, Hypertension, Kidney Stones Denies:: Cancer, Diabetes Mellitus Type 1, Diabetes Mellitus Type 2, Internal Pacemaker, MRSA, Seizures *Have you ever received a pneumonia vaccine?: Yes *Have you received a flu vaccine this season?: Yes Other Medical History: Reports: Arthritis, Hypothyroidism, Sinus Problems, Thyroid Disease. Denies: Blood Transfusion Reaction Anesthesia experience/problems:: None Laterality Cases: Bilateral: Arthroscopy Knee, Cataract, Tonsillectomy Other Surgeries: Yes: No Previous Surgery, Cardiac Catheterization, Cholecystectomy, Colonoscopy, Hernia Repair, Other (cholecystectomy). No: Pacemaker Amputation: No Fractures: No - *Social History Last grade of school completed: High school graduate Smoking Status: Former smoker Tobacco Type: smokeless tobacco # Packs/Day (cigarettes): 1 #Yrs smoked (if former smoker): 33 Smoking End Date: 1991 Alcohol Intake: current Alcohol Intake Frequency:: a few times a week Substance Use Type: denies use *Occupational Status:: retired Housing: house Household Members: spouse *Travel in the last 8 weeks: None - Psychiatric History Pschychiatric History:: Reports:: Anxiety Family Hx:: Cancer, Stroke
[2021-08-23 13:00] VITALS: BP 98/57; PULSE 69; RESP 10; TEMP 36.3; O2SAT 97
[2021-08-23 13:15] VITALS: BP 110/68; PULSE 74; RESP 14; O2SAT 97
[2021-08-23 13:30] VITALS: BP 158/85; PULSE 70; RESP 18; O2SAT 98
[2021-08-23 14:00] VITALS: BP 150/79; PULSE 71; RESP 18; O2SAT 97
[2021-08-23 14:18] VITALS: BP 148/76; PULSE 69; RESP 16; O2SAT 99
--- NOTE | 2021-08-23 14:31 | P.OP_ITS ---
Date of procedure: 08/23/21 Pre-op Diagnosis:: BPH with obstruction Post-op Diagnosis:: BPH with obstruction Procedure performed:: Urolift x4 implants Surgeon:: Salo Brown MD SCHOOL ADMINISTRATOR:: Ekta Friedman Anesthesia: MAC Estimated blood loss (mL): 0 Clinical Note:: 70-year-old white male with lower urinary tract symptoms and BPH. We have discussed treatment options and patient presents for UroLift procedure. Risk and complications discussed at length. Operative findings:: Patient has no chronic bladder outlet obstructive changes. His prostate is about 2 cm in length and has bilobar hyperplasia. He has a high bladder neck but no significant median lobe. Operative note:: Patient taken to the operating room after informed consent was obtained. He was placed on the operating table in a supine position and monitored anesthesia care administered. He was then placed into the dorsal lithotomy position and prepped and draped in the standard surgical fashion. Antibiotics were given through the intravenous route and sequential compression devices placed. The UroLift 20 Irish cystoscope with obturator was passed into the urethra and into the bladder. The bladder was examined in a systematic fashion. There is no evidence of trabeculation, cellules, diverticula or stones. The ureteral orifices in their normal anatomic position with clear efflux of urine. The scope then brought back to the prostatic urethra and a prostate was examined and a treatment plan formulated. The urethra was short and 4 implants were planned. The obturator removed and our UroLift device was placed onto the scope and the scope was brought back to near the verumontanum and the right side of the prosta te was indented at about the 10 o'clock position and the UroLift needle fired and then cut the appropriate length for tension. This retracted the right side of the prostate nicely. The identical procedure was performed on the left side. Third UroLift needle was placed little more distally and more at the 9:00 angle to retract the maximal amount of tissue in the fourth UroLift implant was placed on the patient's left side at the same position as on the right. The UroLift device was removed and the obturator was placed back onto the scope and we looked back in and there was good retraction of the prostatic lobes. The prostatic urethra was wide open and a good result was noted. There is very little bleeding. The scope removed and Urojet placed. Cha catheter was not deemed necessary. Patient transported to recovery in stable condition. Condition: stable Disposition: same day Specimens:: None Complications:: None
== END 2021-08-23 14:18 | disposition home or self-care (01) ==
LOC: OR 10:48
PROVIDERS: PCP Family Medicine; Visit Provider Urology
DX: N40.1 Benign prostatic hyperplasia with lower urinary tract symptoms (principal); N20.1 Calculus of ureter; F41.9 Anxiety disorder, unspecified; J45.909 Unspecified asthma, uncomplicated; J44.9 Chronic obstructive pulmonary disease, unspecified; I25.10 Atherosclerotic heart disease of native coronary artery without angina pectoris; K21.9 Gastro-esophageal reflux disease without esophagitis; E78.5 Hyperlipidemia, unspecified; I10 Essential (primary) hypertension; Z80.9 Family history of malignant neoplasm, unspecified; Z82.3 Family history of stroke
CPT/HCPCS: 52441; 52442 ×3; 96374; J2704; L8699

== ENCOUNTER → 2021-09-29 11:53 | Outpatient (CLI) | payer MEDICARE, SELFPAY ==
--- NOTE | 2021-09-29 12:27 | XR_ITS ---
FINAL REPORT CLINICAL HISTORY: COVID TESTING weakness, cough , congestion COMPARISON: March 24, 2021 FINDINGS: SINGLE VIEW CHEST. The heart is normal in size. The mediastinum is unremarkable. The lungs are clear. There is no pneumothorax. IMPRESSION: No acute process. Reviewed, Interpreted and Dictated by Enrique Hernandez III, MD Transcribed by Pebbles Araya Authenticated by Enrique Hernandez III, MD on 09/29/2021 01:27:[address] [facility]
[2021-09-29 12:48] LABS: Adenovirus,PCR Not Detected (NotDetected); Bordetella Pertussis Not Detected (NotDetected); Chlamydophila Pneumoniae, PCR Not Detected (NotDetected); Coronavirus 19, PCR Not Detected (NotDetected); Coronavirus 229E Not Detected (NotDetected); Coronavirus NL63 Not Detected (NotDetected); Coronavirus OC43 Not Detected (NotDetected); Coronovirus HKU1,PCR Not Detected (NotDetected); Human Metapneumovirus Not Detected (NotDetected); Influenza A, PCR Not Detected (NotDetected); Influenza AH1, 2009 Not Detected (NotDetected); Influenza AH1, PCR Not Detected (NotDetected); Influenza AH3,PCR Not Detected (NotDetected); Influenza B, PCR Not Detected (NotDetected); Mycoplasma Pneumoniae, PCR Not Detected (NotDetected); Parainfluenza 1, PCR Not Detected (NotDetected); Parainfluenza 2, PCR Not Detected (NotDetected); Parainfluenza 3, PCR Not Detected (NotDetected); Parainfluenza 4, PCR Not Detected (NotDetected); Respiratory Syncytial Virus Not Detected (NotDetected)
[2021-09-29 13:14] LABS: Basophils # 0.1 K/mm3 (0-0.2); Basophils % 1.1 % (0.1-2.0); Eosinophils # 0.2 K/mm3 (0.0-0.4); Eosinophils % 2.6 % (0.1-12.0); Hematocrit 48.6 % (42.0-52.0); Hemoglobin 15.8 g/dL (14.1-18.0); Lymphocytes # 1.6 K/mm3 (0.7-4.5); Lymphocytes % 24.2 % (10-50); Mean Corpuscular HGB Conc 32.5 g/dL (31.8-35.4); Mean Corpuscular Hemoglobin 31.4 pg (27.0-31.2); Mean Corpuscular Volume 96.5 fl (80-94); Mean Platelet Volume 10.1 fl (7.4-10.4); Monocytes # 0.4 K/mm3 (0.1-1.0); Monocytes % 5.4 % (1.7-9.3); Neutrophils # 4.3 K/mm3 (1.8-7.8); Neutrophils % 66.7 % (37.0-80.0); Platelet Count 255 K/mm3 (142-424); Red Blood Count 5.03 M/mm3 (4.60-6.20); Red Cell Distribution Width 12.9 % (11.5-17.5); White Blood Count 6.5 K/mm3 (4.8-10.8)
[2021-09-29 15:26] LABS: Rhinovirus/Enterovirus Detected (NotDetected)
== END ==
PROVIDERS: PCP Family Medicine; Visit Provider Physician Assistant
DX: Z20.822 Contact with and (suspected) exposure to COVID-19 (principal); B34.1 Enterovirus infection, unspecified
CPT/HCPCS: 36415; 71045; 85025; 87581; 87632; 87798; C9803; U0003; U0005

== ENCOUNTER → 2021-11-01 08:46 | Outpatient (POV) | payer MEDICARE, SELFPAY ==
[2021-11-01 09:10] VITALS: BP 139/67; PULSE 81; RESP 18; O2SAT 96; BMI 29.4
--- NOTE | 2021-11-01 11:39 | HMH.PAINSOAP ---
[facility] Pain Management SOAP Note Subjective:: This patient is a very pleasant 71-year-old white male who presents today for follow-up. He is currently being treated for bilateral shoulder pain with degenerative osteoarthritis. He previously underwent bilateral shoulder injections on May 21, 2021 and notes significant pain relief with these injections that is remains ongoing. He is very satisfied with these injections for the management of his shoulder pain. However, today his biggest pain complaint is his low back pain. He states that it starts in his low back and goes down his legs level of his knee on the left side. He said the pain is worse with prolonged sitting and when he is trying to stand up after prolonged sitting. He denies any pain with bending or twisting activities. He rates his pain today as a 6 out of 10 with low back. Objective:: General: Alert and oriented x3, no acute distress, pleasant and cooperative Lungs: Resps E/U, symmetric chest expansion Eyes: PERRL Musculoskeletal: limited flexion and extension of the lumbar spine secondary to pain. Deep tendon reflexes were normal in bilateral lower extremities. Motor exam was grossly intact in the bilateral lower extremities, antalgic gait noted. There is to palpation over the left SI joint, positive SI joint compression, positive Gaenslen's, positive Dimitris's on the left. Neurological: Speech is clear, medical scientific liaison equal, no gross sensory deficits Assessment:: Left-sided sacroiliitis Left-sided low back pain Left sided hip pain Plan:: Discussed with the patient that we will schedule him for left-sided SI joint injections under fluoroscopy #1. We will schedule him for the above injections to be performed in clinic in the next 2 to 3 weeks. [facility] History Medical History: Reports:: Anxiety, Asthma, Chronic Obstructive Pulmonary Disease (COPD), Coronary Artery Disease, Gastroesophageal Reflux Disease(GERD), Hyperlipidemia, Hypertension, Kidney Stones Denies:: Cancer, Diabetes Mellitus Type 1, Diabetes Mellitus Type 2, Internal Pacemaker, MRSA, Seizures *Have you ever received a pneumonia vaccine?: Yes *Have you received a flu vaccine this season?: Yes Other Medical History: Reports: Arthritis, Hypothyroidism, Sinus Problems, Thyroid Disease. Denies: Blood Transfusion Reaction Laterality Cases: Bilateral: Arthroscopy Knee, Tonsillectomy Other Surgeries: Yes: No Previous Surgery, Cardiac Catheterization, Cholecystectomy, Colonoscopy, Hernia Repair, Other (cholecystectomy). No: Pacemaker Amputation: No Fractures: No - *Social History Smoking Status: Former smoker Tobacco Type: smokeless tobacco # Packs/Day (cigarettes): 1 #Yrs smoked (if former smoker): 33 Alcohol Intake: current Alcohol Intake Frequency:: a few times a week Substance Use Type: denies use *Occupational Status:: unemployed Housing: house Household Members: spouse *Travel in the last 8 weeks: None - Psychiatric History Pschychiatric History:: Reports:: Anxiety Family Hx:: Cancer, Stroke
== END ==
PROVIDERS: Visit Provider Anesthesiology Pain Medicine
DX: M46.1 Sacroiliitis, not elsewhere classified (principal); M54.50 Low back pain, unspecified; M25.552 Pain in left hip
CPT/HCPCS: 99212; G0463

== ENCOUNTER 2021-11-19 08:52 | Day surgery (SDC) | payer MEDICARE, SELFPAY ==
[2021-11-19 09:07] VITALS: BP 124/64; BP 127/69; PULSE 77; RESP 18; RESP 20; O2SAT 94
[2021-11-19 09:11] VITALS: BP 129/69; PULSE 76; RESP 16; TEMP 36.4; O2SAT 94; BMI 28.5
[2021-11-19 09:35] VITALS: BP 131/70; PULSE 71; RESP 20; O2SAT 96
--- NOTE | 2021-11-19 09:43 | P.PCN_ITS ---
- Procedure Date: 11/19/21 Time: 09:43 Anesthesiologist:: Robby Camarena MD Complications:: None Pre-procedure Diagnosis:: Sacroiliitis Post-procedure Diagnosis:: Same Indications for Procedure:: This patient is a pleasant 71-year-old white male who we are treating for left- sided hip pain. He is tender over the left SI joint. Is positive Dimitris's test on left side. Is positive Romina test on left side. He has positive SI joint compression test on left side. We will plan left SI joint injection under fluoroscopy today to help with his pain symptoms. Procedure Details:: Left SI joint injection under fluoroscopy Informed consent was obtained and the risks and benefits of the procedure was explained to the patient. Patient was taken to the procedure room. Patient was placed prone on the procedure table. The left hip was prepped using ChloraPrep. The skin and subcutaneous tissues were anesthetized using lidocaine. I placed a 22-gauge spinal needle into the inferior aspect of the left SI joint. Needle placement was confirmed with dye. After this we injected 5 mL bupivacaine 0.25% and Depo-Medrol 40 mg into the left SI joint. The patient tolerated the procedure well with no complication. Plan and Disposition:: We will follow-up with him in 2 weeks. Will reevaluate symptoms at that time.
== END 2021-11-19 09:35 | disposition home or self-care (01) ==
LOC: SC.PAINP 08:53
PROVIDERS: PCP Family Medicine; Visit Provider Anesthesiology
DX: M46.1 Sacroiliitis, not elsewhere classified (principal); I25.10 Atherosclerotic heart disease of native coronary artery without angina pectoris; I10 Essential (primary) hypertension; E78.5 Hyperlipidemia, unspecified; Z88.6 Allergy status to analgesic agent
CPT/HCPCS: 27096; G0260; J1040; Q9966

== ENCOUNTER → 2021-12-15 08:42 | Outpatient (CLI) | payer MEDICARE, SELFPAY ==
--- NOTE | 2021-12-15 08:46 | US_ITS ---
FINAL REPORT CLINICAL HISTORY: H/O TOBACCO USE/ screening FINDINGS: Limited sonographic images of the aorta were obtained. There is no evidence of abdominal aortic aneurysm. The abdominal aorta measures up to 2.5 cm. The common iliac arteries are normal in size. IMPRESSION: No evidence of abdominal aortic aneurysm. Reviewed, Interpreted and Dictated by Enrique Hernandez III, MD Transcribed by Earnestine Arrington Authenticated by Enrique Hernandez III, MD on 12/15/2021 11:30:53 AM [facility]
== END ==
PROVIDERS: PCP Family Medicine; Visit Provider Physician Assistant
DX: Z87.891 Personal history of nicotine dependence (principal)
CPT/HCPCS: 76705

== ENCOUNTER → 2022-01-03 08:47 | Outpatient (POV) | payer MEDICARE, SELFPAY ==
[2022-01-03 09:01] VITALS: BP 130/78; PULSE 84; RESP 18; TEMP 36.8; O2SAT 93; BMI 27.8
--- NOTE | 2022-01-03 11:01 | P.CONS_ITS ---
[facility] Pain Management SOAP Note Subjective:: This patient is a pleasant 71-year-old white male whose been in our clinic for quite some time regarding his low back pain as well as bilateral hip and leg radicular symptoms at times. Patient recently underwent left SI injection. Patient states the left SI joint injection provided minimal relief. Patient states he is not in pain constantly, however he has pain when doing chores. Such as weed eating mowing grass etc. He states the pain in the left buttock and left leg is 7/10 in intensity. Pain increases when walking for any length of time. We discussed lumbar epidural steroid injection. His lumbar MRI shows degenerative disc disease throughout lumbar spine. Objective:: Patient is awake alert oriented x3. In no acute distress. Flexion and extension lumbar spine somewhat guarded secondary to pain. Deep tendon reflexes upper and lower extremities normal. Motor strength upper and lower extremities normal. There is no gross sensory deficit. Gait is normal. Assessment:: Degenerative disc disease lumbar spine multilevels. More radicular symptoms. Plan:: We scheduled the patient for lumbar epidural steroid injection at the L4-5 level. [facility] History Medical History: Reports:: Anxiety, Asthma, Chronic Obstructive Pulmonary Disease (COPD), Coronary Artery Disease, Gastroesophageal Reflux Disease(GERD), Hyperlipidemia, Hypertension, Kidney Stones Denies:: Cancer, Diabetes Mellitus Type 1, Diabetes Mellitus Type 2, Internal Pacemaker, MRSA, Seizures *Have you ever received a pneumonia vaccine?: Yes *Have you received a flu vaccine this season?: Yes Other Medical History: Reports: Arthritis, Hypothyroidism, Sinus Problems, Thyroid Disease. Denies: Blood Transfusion Reaction Laterality Cases: Bilateral: Arthroscopy Knee, Tonsillectomy Other Surgeries: Yes: No Previous Surgery, Cardiac Catheterization, Cholecystectomy, Colonoscopy, Hernia Repair, Other (cholecystectomy). No: Pacemaker Amputation: No Fractures: No - *Social History Smoking Status: Never smoker Tobacco Type: smokeless tobacco # Packs/Day (cigarettes): 1 #Yrs smoked (if former smoker): 33 Alcohol Intake: never Alcohol Intake Frequency:: a few times a week Substance Use Type: denies use *Occupational Status:: retired Housing: house Household Members: spouse *Travel in the last 8 weeks: None - Psychiatric History Pschychiatric History:: Reports:: Anxiety Family Hx:: No significant family history
== END ==
PROVIDERS: Visit Provider Nurse Anesthetist, Certified Registered
DX: M51.16 Intervertebral disc disorders with radiculopathy, lumbar region (principal)
CPT/HCPCS: 99212; G0463

== ENCOUNTER 2022-01-21 07:45 | Day surgery (SDC) | payer MEDICARE, SELFPAY ==
[2022-01-21 07:55] VITALS: BP 135/73; PULSE 78; RESP 18; TEMP 36.4; O2SAT 96; BMI 27.6
[2022-01-21 08:38] VITALS: BP 133/72; PULSE 72; RESP 18; O2SAT 96
[2022-01-21 08:39] VITALS: BP 139/74; PULSE 68; RESP 18; O2SAT 95
--- NOTE | 2022-01-21 08:53 | P.PCN_ITS ---
- Procedure Date: 01/21/22 Time: 08:53 Anesthesiologist:: Jassi Peck CRNA Complications:: None Pre-procedure Diagnosis:: Lumbar medial facet arthropathy bilateral L4-5, L5-S1 Post-procedure Diagnosis:: Same Indications for Procedure:: Very pleasant 28-year-old female that returns to our injection clinic today for a second round medial branch block lumbar spine L4-5, L5-S1. Patient had her first round several weeks ago. Patient reports about 1 week of relief in terms of her low back pain. Procedure Details:: Informed consent was obtained and the risk and benefits of the procedure was explained to the patient. Patient was taken to the procedure room where noninvasive monitors were placed, including noninvasive blood pressure cuff as well as pulse oximeter. The area over the lumbar spine was cleansed using chlorhexidine as a cleansing solution. I anesthetized the skin and subcutaneous tissues with 1% Lidocaine. I placed 22-gauge spinal needles into the facet joint/ medial branches of L4-L5, and L5-S1] bilaterally. Needle placement was confirmed with fluoroscopy. After confirmation of needle placement, each site was injected with 1 mL of 1% lidocaine and 0.25 % Marcaine and 10 mg of Depo- Medrol. A total of 80 mg of depo medrol was used for bilateral medial branch blocks of L4-L5, and L5-S1] bilaterally. Patient tolerated the procedure without difficulty. There were no complications. Plan and Disposition:: He was discharged without incident.
[2022-01-21 08:54] VITALS: BP 137/80; PULSE 64; RESP 18; O2SAT 96
--- NOTE | 2022-01-21 09:00 | HMH.PMPROC ---
- Procedure Date: 01/21/22 Time: 09:00 Anesthesiologist:: Jassi Peck CRNA Complications:: None Pre-procedure Diagnosis:: Generative disease lumbar spine. Lumbar radiculopathy symptoms. Post-procedure Diagnosis:: Same Indications for Procedure:: Patient is a pleasant 1-year-old male that comes our injection clinic today for lumbar epidural steroid injection. He has had bilateral SI joint injections in the past with some relief. However continued to have low back pain with flexion and/or extension right and left rotation. Procedure Details:: Procedure: Lumbar epidural steroid injection under fluoroscopy Informed consent was obtained and the risks and benefits of the procedure were explained to the patient. The patient was taken to the procedure room and noninvasive monitors placed, including noninvasive blood pressure cuff and pulse oximeter. The back was viewed using C-arm Fluoroscopy and prepped using Betadine as a cleansing solution and the L4-L5 interspace was palpated. Skin and subcutaneous tissues were anesthetized using lidocaine 1.5% and a 25-gauge needle. After this, an 18-gauge Touhy epidural needle was placed into the L4-L5 interspace and advanced using fluoroscopic guidance and loss of resistance to air until the epidural space was encountered. After confirmation of needle placement in the epidural space, with dye, a solution containing lidocaine 1.5%, 4 mL and Depo-Medrol 80 mg were incrementally injected into the lumbar epidural space. The patient tolerated the procedure well with no complications. The patient was observed in the Pain Clinic and then discharged home neurologically intact. Plan and Disposition:: Patient was discharged without incident.
== END 2022-01-21 08:54 | disposition home or self-care (01) ==
LOC: SC.PAINP 07:46
PROVIDERS: PCP Family Medicine; Visit Provider Nurse Anesthetist, Certified Registered
DX: M51.16 Intervertebral disc disorders with radiculopathy, lumbar region (principal); J45.909 Unspecified asthma, uncomplicated; J44.9 Chronic obstructive pulmonary disease, unspecified; I25.10 Atherosclerotic heart disease of native coronary artery without angina pectoris; K21.9 Gastro-esophageal reflux disease without esophagitis; E78.5 Hyperlipidemia, unspecified; I10 Essential (primary) hypertension; F41.9 Anxiety disorder, unspecified; M19.90 Unspecified osteoarthritis, unspecified site; E03.9 Hypothyroidism, unspecified; Z88.6 Allergy status to analgesic agent
CPT/HCPCS: 62323; J1040

== ENCOUNTER → 2022-04-11 11:47 | Outpatient (CLI) | payer MEDICARE, SELFPAY ==
--- NOTE | 2022-04-11 11:53 | XR_ITS ---
FINAL REPORT CLINICAL HISTORY: COVID OUT PATIENT, cough, congestion COMPARISON: 09/29/2021 FINDINGS: A single portable view of the chest was obtained. The heart size and pulmonary vascularity are within normal limits. The mediastinum is within normal limits. No acute pulmonary abnormality is identified. The bony thorax is intact. IMPRESSION: No active cardiopulmonary disease. Reviewed, Interpreted and Dictated by Enrique Hernandez III, MD Transcribed by Sharon Hall Authenticated and [facility]
[2022-04-11 12:52] LABS: Adenovirus,PCR Not Detected (NotDetected); Bordetella Pertussis Not Detected (NotDetected); Chlamydophila Pneumoniae, PCR Not Detected (NotDetected); Coronavirus 19, PCR Not Detected (NotDetected); Coronavirus 229E Not Detected (NotDetected); Coronavirus NL63 Not Detected (NotDetected); Coronavirus OC43 Not Detected (NotDetected); Coronovirus HKU1,PCR Not Detected (NotDetected); Human Metapneumovirus Not Detected (NotDetected); Influenza A, PCR Not Detected (NotDetected); Influenza AH1, 2009 Not Detected (NotDetected); Influenza AH1, PCR Not Detected (NotDetected); Influenza AH3,PCR Not Detected (NotDetected); Influenza B, PCR Not Detected (NotDetected); Mycoplasma Pneumoniae, PCR Not Detected (NotDetected); Parainfluenza 1, PCR Not Detected (NotDetected); Parainfluenza 2, PCR Not Detected (NotDetected); Parainfluenza 3, PCR Not Detected (NotDetected); Parainfluenza 4, PCR Not Detected (NotDetected); Respiratory Syncytial Virus Not Detected (NotDetected); Rhinovirus/Enterovirus Not Detected (NotDetected)
[2022-04-11 13:21] LABS: Basophils % 0.5 % (0.1-2.0); Eosinophils # 0.1 K/mm3 (0.0-0.4); Eosinophils % 1.5 % (0.1-12.0); Hematocrit 49.6 % (42.0-52.0); Hemoglobin 15.3 g/dL (14.1-18.0); Lymphocytes # 1.1 K/mm3 (0.7-4.5); Lymphocytes % 14.4 % (10-50); Mean Corpuscular HGB Conc 30.8 g/dL (31.8-35.4); Mean Corpuscular Hemoglobin 30.2 pg (27.0-31.2); Mean Corpuscular Volume 98.3 fl (80-94); Mean Platelet Volume 9.4 fl (7.4-10.4); Monocytes # 0.4 K/mm3 (0.1-1.0); Monocytes % 4.8 % (1.7-9.3); Neutrophils # 6.2 K/mm3 (1.8-7.8); Neutrophils % 78.7 % (37.0-80.0); Platelet Count 249 K/mm3 (142-424); Red Blood Count 5.05 M/mm3 (4.60-6.20); Red Cell Distribution Width 13.5 % (11.5-17.5); White Blood Count 7.8 K/mm3 (4.8-10.8)
== END ==
PROVIDERS: PCP Family Medicine; Visit Provider Family Medicine
DX: Z20.822 Contact with and (suspected) exposure to COVID-19 (principal)
CPT/HCPCS: 36415; 71045; 85025; 87581; 87632; 87798; C9803; U0003; U0005

== ENCOUNTER 2022-08-12 05:29 | Emergency (ER) | payer MEDICARE, SELFPAY ==
[2022-08-12] VITALS (12 sets, daily range): BP systolic 133–154; BP diastolic 59–92; PULSE 52–74; RESP 16–22; TEMP 36.6–36.8; O2SAT 95–99; BMI 26.5; BMI 27.3
--- NOTE | 2022-08-12 05:30 | PC.NURSE ---
Patient was brought back to room via after extricating himself out of his private vehicle and placing himself into the chair. Upon arrival to room he removed his own jacket without difficulty including unzipping and alternate removal of bilat arms independently. Able to transfer self to stretcher without incident and reposition self onto bed.
--- NOTE | 2022-08-12 05:38 | ECG_ITS ---
APPROVED REPORT Exam: Resting ECG HR:60 bpm ECG Measurements Heart Rate 60 AXES HI 167 P 70 QRSd 100 QRS 73 QT 376 T 44 QTc 376 Conclusion SINUS RHYTHM NORMAL ECG UNCONFIRMED REPORT Electronically signed by : Paddy Méndez MD 08/13/2022 12:15:38
--- NOTE | 2022-08-12 05:44 | CT_ITS ---
PROCEDURE INFORMATION: Exam: CT Head Without Contrast Exam date and time: 08/12/2022 5:45 AM Age: 71 years old Clinical indication: Stroke-like symptoms; Headache; Lt upper extremity weakness; Additional info: Headache, stroke prot TECHNIQUE: Imaging protocol: Computed tomography of the head without contrast. Radiation optimization: All CT scans at this facility use at least one of these dose optimization techniques: automated exposure control; mA and/or kV adjustment per patient size (includes targeted exams where dose is matched to clinical indication); or iterative reconstruction. Other technique: STROKE PROTOCOL was implemented. COMPARISON: No relevant prior studies available. FINDINGS: Brain: There is diffuse cortical volume loss and hypoattenuation of the deep white matter. No evidence of acute intracranial hemorrhage. No acute cerebral edema, mass effect or shift. Cerebral ventricles: No ventriculomegaly. Paranasal sinuses: Visualized sinuses are unremarkable. No fluid levels. Mastoid air cells: Visualized mastoid air cells are well aerated. Bones/joints: Unremarkable. No acute fracture. Soft tissues: Unremarkable. IMPRESSION: No acute intracranial process. Diffuse cortical atrophy and chronic deep white matter small vessel disease. ASSESSMENT: ASPECTS ([place] Stroke Program Early CT Score) is 10.
--- NOTE | 2022-08-12 05:44 | XR_ITS ---
PROCEDURE INFORMATION: Exam: XR Chest Exam date and time: 08/12/2022 5:41 AM Age: 71 years old Clinical indication: Patient HX: Cough, copd TECHNIQUE: Imaging protocol: Radiologic exam of the chest. Views: 2 views. COMPARISON: CR XR CHEST PORTABLE 04/11/2022 12:06 PM FINDINGS: Lungs: There is a stable left lower lobe. Otherwise the lungs are clear bilaterally. No consolidation. Pleural spaces: Unremarkable. No pleural effusion. No pneumothorax. Heart/Mediastinum: Unremarkable. No cardiomegaly. Bones/joints: Unremarkable. IMPRESSION: No acute cardiopulmonary process.
[2022-08-12 05:48] LABS: Basophils # 0.1 K/mm3 (0-0.2); Eosinophils # 0.3 K/mm3 (0.0-0.4); Eosinophils % 4.6 % (0.1-12.0); Hematocrit 50.2 % (42.0-52.0); Hemoglobin 15.8 g/dL (14.1-18.0); Lymphocytes # 1.2 K/mm3 (0.7-4.5); Lymphocytes % 19.3 % (10-50); Mean Corpuscular HGB Conc 31.5 g/dL (31.8-35.4); Mean Corpuscular Hemoglobin 29.9 pg (27.0-31.2); Mean Corpuscular Volume 94.8 fl (80-94); Mean Platelet Volume 8.9 fl (7.4-10.4); Monocytes # 0.3 K/mm3 (0.1-1.0); Monocytes % 4.8 % (1.7-9.3); Neutrophils # 4.3 K/mm3 (1.8-7.8); Neutrophils % 70.3 % (37.0-80.0); Platelet Count 225 K/mm3 (142-424); Red Blood Count 5.29 M/mm3 (4.60-6.20); Red Cell Distribution Width 13.2 % (11.5-17.5); White Blood Count 6.1 K/mm3 (4.8-10.8)
[2022-08-12 05:52] LABS: Chloride 105 mmol/L (98-107); Sodium 139 mmol/L (136-145)
[2022-08-12 05:55] LABS: Alanine Aminotransferase 28 U/L (12-78); Albumin Level 3.9 g/dl (3.5-5.0); Albumin/Globulin Ratio 1.6 (1.1-1.8); Alkaline Phosphatase 53 U/L (38-126); Aspartate Amino Transferase 31 U/L (17-59); Bilirubin,Total 0.5 mg/dl (0.2-1.3); Blood Urea Nitrogen 27 mg/dl (9-20); Carbon Dioxide 31 mmol/L (22.0-30.0); Creatinine Clearance Estimated 56 mL/min (50-200); Estimated Glomerular Filt Rate 50 ml/min (>60); GFR (African American) 60 ML/MIN (>60); Globulin 2.5 g/dL (1.3-3.2); Total Protein,Serum 6.4 g/dl (6.3-8.2)
[2022-08-12 05:56] LABS: Calcium 9.5 mg/dl (8.4-10.2); Glucose 101 mg/dl (74-100)
--- NOTE | 2022-08-12 05:59 | CT_ITS ---
FINAL REPORT TECHNIQUE: Multiple axial CT angiography images were performed from the foramen magnum to the vertex before and during IV contrast administration. This study was performed with techniques to keep radiation doses as low as reasonably achievable (ALARA). Individualized dose reduction techniques using automated exposure control or adjustment of mA and/or kV according to the patient's size were employed. CLINICAL HISTORY: DIZZINESS, INTERMITTENT NUMBNESS, CHRONIC DIAZ S FINDINGS: No acute intracranial hemorrhage or large acute cortical infarct. The brain volume is normal for the patient's age. Ventricles are of bracket normal in size and configuration. No midline shift. The basal cisterns are patent. There is resection of the ostiomeatal units bilaterally. CTA HEAD: The major intracranial arterial system is patent without hemodynamically significant stenosis or major vessel occlusion.No aneurysm is identified. IMPRESSION: No acute intracranial hemorrhage or large acute cortical infarct. No evidence of vascular injury, aneurysm, hemodynamically significant stenosis or major vessel occlusion of the intracranial arterial system. Reviewed, Interpreted and Dictated by Juan Manrique MD Transcribed by Earnestine Arrington Authenticated and [facility]
--- NOTE | 2022-08-12 05:59 | CT_ITS ---
FINAL REPORT TECHNIQUE: Thin section axial CT with IV contrast supplemented with multiplanar reconstruction under CT angiogram protocol. This study was performed with techniques to keep radiation doses as low as reasonably achievable (ALARA). Individualized dose reduction techniques using automated exposure control or adjustment of mA and/or kV according to the patient''s size were employed. NASCET criteria was utilized during interpretation. CLINICAL HISTORY: DIZZINESS, INTERMITTENT NUMBNESS, CHRONIC DIAZ S FINDINGS: Aortic arch: Arch shows no significant narrowing. Great vessel origins are widely patent. There is minimal vascular calcification in the proximal internal carotid arteries bilaterally. There is no significant stenosis. There is a partially calcified nodule in the right lobe of the thyroid measuring 1.8 cm in diameter. There appears to be resection of the ostiomeatal units. There is mucoperiosteal thickening in the right maxillary sinus. There are moderate hypertrophic changes of degenerative disc disease at C4-5, C5-6, and C6-7. Vertebral: Left vertebral artery is dominant. No significant stenosis is present. IMPRESSION: No evidence of significant carotid stenosis. Partially calcified right thyroid lobe nodule. Recommend thyroid ultrasound to further evaluate. Reviewed, Interpreted and Dictated by Juan Manrique MD Transcribed by Earnestine Arrington Authenticated and [facility]
[2022-08-12 06:01] LABS: C-Reactive Protein 11.5 mg/L (0-4)
--- NOTE | 2022-08-12 06:01 | PC.NURSE ---
CALLED RADIOLOGY FOR CT HEAD NECK WITH CONTRAST. WAS ADVISED WE WILL AWAIT LAB WORK PRIOR TO COMPLETION.
--- NOTE | 2022-08-12 06:01 | PC.NURSE ---
ER speaking with [facility] at this time
[2022-08-12 06:25] LABS: Troponin I < 0.01 ng/ml (0.00-0.034)
[2022-08-12 06:27] LABS: Erythrocyte Sedimentation Rate 1 mm/hr (0-20)
--- NOTE | 2022-08-12 07:02 | HMH.EDDIZZ ---
Discharge Plan Disposition Patient Disposition: Home, Self-Care Prescriptions Prescriptions: New meclizine [Antivert] 25 mg tablet,chewable 25 mg PO TID Qty: 20 0RF No Action levothyroxine 25 mcg capsule 25 mcg PO DAILY allopurinol 100 mg tablet 100 mg PO QDAY clonazepam 1 mg tablet 1 mg PO QHS gabapentin 300 mg capsule 300 mg PO BID levalbuterol HCl 1.25 mg/3 mL solution for nebulization 1.25 mg INHALATION Q4H PRN (Reason: Breathing problems) lisinopril 10 MG tablet 10 mg PO DAILY rosuvastatin 20 MG tablet 20 mg PO DAILY dicyclomine 20 MG tablet 20 mg PO QID fenofibric acid (choline) 135 mg capsule,delayed release(DR/EC) 135 mg PO DAILY QNASL 80 mcg/actuation HFA aerosol inhaler 80 mcg INTRANASAL DAILY Linzess 290 mcg capsule 290 mcg PO DAILY Referrals Follow up/Referrals: Manuelito Dior MD [Primary Care Provider] - See instructions Clinical Impressions Clinical Impression: Benign paroxysmal positional vertigo Instructions Patient Instructions: Dizziness, Nonvertigo Discharge ED Provider: Milton Beard HPI General Chief Complaint: Dizziness Stated Complaint: unsteady, no balance Time Seen by Provider: 08/12/22 07:02 Mode of Arrival: Family Vehicle Source of Information: Patient and Medical Record Limitations: No Limitations Description of Symptoms (Recalled from ER Triage Doc. by RN): 71 yo male presents to ed via family car and wc for complaints of not feeling right, feeling dizzy . Patient reports he attempted to get OOB at 0410 and felt immediately dizzy and unable to stand or walk without dizziness . Pt further reports he has discomfort and fullness in his right ear, a chronic headache that he has been seeking treatment with [facility] over the course of the last month. Advises he has not had any ct scans however. Further reports that he was at a on Monday and exposed to multiple people with covid. Has been vaccinated for COVID FLU AND PNEUMONIA PER HIS REPORT. History of Present Illness HPI Narrative: pt with reported dizzyness this am increased with ambulation and movement - denied liao but was seen pcp fro frontal liao - no fever/rash or trauma and no focal neuro sx complaint: dizziness Onset (ago): hour(s) Timing: sudden onset Description: lightheadedness History of similar episodes: No History of trauma: No Severity: moderate Relieving factors: remaining still Exacerbating factors: movement Associated symptoms: denies other symptoms Related Data Home Medications Medication Instructions Recorded Confirmed allopurinol 100 mg tablet 100 mg PO QDAY gout 10/03/17 08/12/22 clonazepam 1 mg tablet 1 mg PO QHS Anxiety 10/03/17 08/12/22 levothyroxine 25 mcg capsule 25 mcg PO DAILY thyroid 10/03/17 08/12/22 gabapentin 300 mg capsule 300 mg PO BID Pain 04/24/18 08/12/22 levalbuterol HCl 1.25 mg/3 mL 1.25 mg INHALATION Q4H PRN 04/24/18 08/12/22 solution for nebulization Breathing problems lisinopril 10 mg tablet 10 mg PO DAILY blood pressure 08/15/18 08/12/22 rosuvastatin 20 mg tablet 20 mg PO DAILY Cholesterol 08/23/21 08/12/22 dicyclomine 20 mg tablet 20 mg PO QID STOMACH 01/03/22 08/12/22 beclomethasone dipropionate 80 80 mcg intranasal DAILY . 08/12/22 08/12/22 mcg/actuation nasal HFA inhaler (QNASL) fenofibric acid (choline) 135 mg 135 mg PO DAILY . 08/12/22 08/12/22 capsule,delayed release linaclotide 290 mcg capsule 290 mcg PO DAILY bowels 08/12/22 08/12/22 (Linzess) Previous Rx's Medication Instructions Recorded meclizine 25 mg chewable tablet 25 mg PO TID #20 tabs 08/12/22 (Antivert) Allergies Allergy/AdvReac Type Severity Reaction Status Date / Time codeine [CODEINE] Allergy Unknown Verified 01/21/22 07:56 [facility] Disclaimer: The information contained in this section may have been updated after the patient was seen, as this information can be updat
--- NOTE | 2022-08-12 07:15 | PC.NURSE ---
covid swab sent to the lab
[2022-08-12 07:31] LABS: Coronavirus 19, PCR Not Detected (NotDetected); Influenza A, PCR Not Detected (NotDetected); Influenza B, PCR Not Detected (NotDetected)
[2022-08-12 07:48] LABS: Ethyl Alcohol < 10 mg/dl (0-10)
[2022-08-12 08:36] LABS: Vitamin B12 236 pg/mL (239-931)
== END 2022-08-12 08:54 | disposition home or self-care (01) ==
PROVIDERS: Emergency Provider Emergency Medicine; PCP Family Medicine
DX: H81.10 Benign paroxysmal vertigo, unspecified ear (principal); Z79.899 Other long term (current) drug therapy; I10 Essential (primary) hypertension; I25.10 Atherosclerotic heart disease of native coronary artery without angina pectoris; M10.9 Gout, unspecified; F41.9 Anxiety disorder, unspecified; E07.9 Disorder of thyroid, unspecified; Z88.6 Allergy status to analgesic agent
CPT/HCPCS: 70450; 70496; 70498; 71046; 80053; 82607; 83735; 84484; 85025; 85651; 86140; 93005; 96365; 96375; 99285; C9803; Q9967; U0003; U0005

== ENCOUNTER → 2022-08-31 12:34 | Outpatient (CLI) | payer MEDICARE, SELFPAY ==
--- NOTE | 2022-08-31 12:39 | US_ITS ---
FINAL REPORT CLINICAL HISTORY: THYROID NODULE FINDINGS: THYROID ULTRASOUND Sonographic images of the thyroid was obtained. The right lobe of the thyroid measures 5.4 x 1.8 x 1.7 cm. The left lobe of the thyroid measures 5.1 x 1.9 x 1.4 cm. The isthmus measures 3 mm. There are several thyroid nodules bilaterally includin. 6 mm cystic nodule in the isthmus, TI-RADS 1. 2. 16 x 14 x 13 mm solid and hypoechoic right lobe nodule with macrocalcifications, TI-RADS 4. 3. 16 x 14 x 9 mm solid and hypoechoic right lobe nodule with macrocalcifications, TI-RADS 4. 4. 4 x 3 x 3 mm solid and hypoechoic left lobe nodule with macrocalcifications, TI-RADS 5. IMPRESSION: Bilateral thyroid nodules as described. Recommend ultrasound-guided FNA of the dominant nodule in the lower pole of the right thyroid lobe. Reviewed, Interpreted and Dictated by Enrique Hernandez III, MD Transcribed by Pebbles Araya Authenticated and [facility]
== END ==
PROVIDERS: PCP Family Medicine; Visit Provider Physician Assistant
DX: E04.1 Nontoxic single thyroid nodule (principal)
CPT/HCPCS: 76536

== ENCOUNTER → 2022-09-14 09:32 | Outpatient (CLI) | payer MEDICARE, SELFPAY ==
--- NOTE | 2022-09-14 09:36 | US_ITS ---
FINAL REPORT CLINICAL HISTORY: THYROID NODULE FINDINGS: Ultrasound guided thyroid biopsy. HISTORY: . Right thyroid nodule. Attending radiologist: Dr. Rivera Physician City Planning Engineer: Bello Mejia PA-C PROCEDURE: After informed consent was obtained and a time-out was performed, the patient was prepped and draped in usual sterile fashion over the right neck. Utilizing local anesthesia and sterile technique with a 25-gauge needle, access to lesion was obtained. Three passes were made. The patient received no conscious sedation. The patient tolerated procedure well and left the department in good condition. IMPRESSION: Status post ultrasound guided biopsy of thyroid without immediate complication. Films reviewed , interpreted and dictated by Dr. Rivera. Transcribed by Bello Mejia PA-C. Reviewed, Interpreted and Dictated by Ludy Rivera MD Transcribed by JOSEE Gamboa Authenticated and [facility]
== END ==
LOC: RAD 09:33
PROVIDERS: PCP Family Medicine; Visit Provider Physician Assistant
DX: E04.1 Nontoxic single thyroid nodule (principal)
CPT/HCPCS: 10005; 76536; 88173

== ENCOUNTER → 2022-10-19 07:54 | Outpatient (CLI) | payer MEDICARE, SELFPAY ==
--- NOTE | 2022-10-19 08:04 | ECG_ITS ---
APPROVED REPORT Exam: Resting ECG HR:75 bpm ECG Measurements Heart Rate 75 AXES [place] 193 P 143 QRSd 103 QRS 87 QT 357 T 48 QTc 385 Conclusion ECTOPIC ATRIAL RHYTHM LOW QRS VOLTAGE IN EXTREMITY LEADS [QRS DEFLECTION < 0.5 mV IN LIMB LEADS] ABNORMAL RHYTHM ECG UNCONFIRMED REPORT Electronically signed by : Paddy Méndez MD 10/19/2022 21:26:05
[2022-10-19 08:44] LABS: Basophils # 0.1 K/mm3 (0-0.2); Basophils % 0.7 % (0.1-2.0); Eosinophils # 0.2 K/mm3 (0.0-0.4); Eosinophils % 3.4 % (0.1-12.0); Hematocrit 45.2 % (42.0-52.0); Hemoglobin 14.7 g/dL (14.1-18.0); Lymphocytes # 1.9 K/mm3 (0.7-4.5); Lymphocytes % 26.8 % (10-50); Mean Corpuscular HGB Conc 32.5 g/dL (31.8-35.4); Mean Corpuscular Hemoglobin 29.8 pg (27.0-31.2); Mean Corpuscular Volume 91.5 fl (80-94); Mean Platelet Volume 9.2 fl (7.4-10.4); Monocytes # 0.5 K/mm3 (0.1-1.0); Monocytes % 6.4 % (1.7-9.3); Neutrophils # 4.4 K/mm3 (1.8-7.8); Neutrophils % 62.7 % (37.0-80.0); Platelet Count 250 K/mm3 (142-424); Red Blood Count 4.94 M/mm3 (4.60-6.20); Red Cell Distribution Width 13.4 % (11.5-17.5)
[2022-10-19 09:51] LABS: Alanine Aminotransferase 25 U/L (12-78); Albumin Level 3.9 g/dl (3.5-5.0); Albumin/Globulin Ratio 1.9 (1.1-1.8); Alkaline Phosphatase 37 U/L (38-126); Aspartate Amino Transferase 26 U/L (17-59); Bilirubin,Total 0.4 mg/dl (0.2-1.3); Blood Urea Nitrogen 21 mg/dl (9-20); Carbon Dioxide 30 mmol/L (22.0-30.0); Chloride 107 mmol/L (98-107); Estimated Glomerular Filt Rate 59 ml/min (>60); GFR (African American) 72 ML/MIN (>60); Globulin 2.1 g/dL (1.3-3.2); Glucose 112 mg/dl (74-100); Sodium 140 mmol/L (136-145)
[2022-10-19 10:04] LABS: Free T4 (Free Thyroxine) 1.01 ng/dl (0.78-2.19)
[2022-10-19 10:18] LABS: Thyroid Stimulating Hormone 1.38 uIU/mL (0.465-4.68)
== END ==
PROVIDERS: PCP Family Medicine; Visit Provider Student in an Organized Health Care Education/Training Program
DX: E04.1 Nontoxic single thyroid nodule (principal)
CPT/HCPCS: 36415; 80053; 84439; 84443; 85025; 93005

== ENCOUNTER 2022-10-26 08:54 | Day surgery (SDC) | payer MEDICARE, SELFPAY ==
[2022-10-24 13:21] VITALS: BMI 28.1
[2022-10-26] VITALS (12 sets, daily range): BP systolic 137–169; BP diastolic 61–90; PULSE 62–77; RESP 13–18; TEMP 36.2–43; O2SAT 93–97
--- NOTE | 2022-10-26 09:43 | P.PN_ITS ---
[facility] Disclaimer: The information contained in this section may have been updated after the patient was seen, as this information can be updated by other users. Medical History Allergies Asthma CAD (coronary artery disease) COPD (chronic obstructive pulmonary disease) Coronary artery disease Encounter for pre-operative cardiovascular clearance HHD (hypertensive heart disease) History of cataract History of diverticulitis History of gastroesophageal reflux (GERD) [place] (hard of hearing) Hyperlipidemia Hypertension Hypothyroid Irritable bowel syndrome (IBS) Kidney stone Myocardial bridge Thyroid Nodule Surgical History History of hernia surgery History of partial knee replacement History of prostate surgery History of total left knee replacement History of total right knee replacement Hx of cataract surgery Hx of cholecystectomy Hx of sinus surgery Family History Mother Thyroid cancer Father Leukemia Social History (Updated 10/26/22 @ 09:23 by Lucila Peter RN) Smoking Status: Former smoker pack-years: 35 second hand exposure: No alcohol intake: current substance use type: denies use current occupational status: retired Travel in the last 8 weeks: None household members: spouse housing: house current occupational exposures/hazards: No caffeine: Yes [facility] Anesthesia Checklist Patient Identification Patient Identification: Arm Band and Family Structural Data Admitted From: Home Planned Operative Procedure/s: Right Hemithyroidectomy Consent for Planned Operative Procedure(s) Verified: Yes Verified Documents: Surgical Consent and Cardiac Clearance NPO Status Verified Time NPO: 00:00 Additional verifications Patient : No Anesthesia Reactions: No Hx Blood Transfusions: Yes Blood Transfusion Reaction: No Cephalosporin Allergy: No Previous Colonoscopy: No Airway Assessment C-Spine Mobility Assessed: Yes TMJ Mobility Assessed: Yes Dentition: Partials Neurological Assessment Level of Consciousness: Awake, Alert, Appropriate and Follows Commands Hx Seizures: No Numbness or tingling in extremities: No Anesthesia Plan Anesthesia Risk discussed: Yes ASA Class: III Anesthesia Type: General
--- NOTE | 2022-10-26 13:08 | P.OP_ITS ---
Date of procedure: 10/26/22 Pre-op Diagnosis:: thyroid nodule Post-op Diagnosis:: same Procedure performed:: right hemithyroidectomy, right central neck exploration with removal of mass Surgeon:: Dylon Ernst MD Anesthesia: ADAMARIS Estimated blood loss (mL): 10 Operative findings:: -firm, palpable right thyroid nodule, abutting a separate but abnormal appearing central neck mass -dense adherence of the recurrent laryngeal nerve to the thyroid/central neck mass, requiring extensive dissection to free off the thyroid Operative note:: The patient was brought to the OR, laid in the supine position, and general anesthesia with a Nims nerve monitoring endotracheal tube was induced.? Nerve monitor was set up and confirmed to be working appropriately.? Patient was prepped and draped in usual fashion.? Lidocaine with epinephrine 1-100,000 was injected below the incision site.? I dissected through the skin, subcutaneous tissues, and platysma.? The strap muscles were identified at?the midline raphae.? The strap muscles were divided at the raphae.? I then began to dissect the strap muscles off of the right? side of the?thyroid.? I isolated the superior pedicle and was taken down with a harmonic.? ?We then came inferiorly again freeing thyroid from the surrounding tissue and strap muscles. The patient had a firm nodule on the deep aspect of the lobe. I then began to roll the thyroid in a lateral to medial fashion out?of the patient's neck.? In doing this I was able to palpate what appeared to be a very firm and abnormal appearing central neck mass. Either likely metastatic lymph node versus very abnormal appearing parathyroid tissue. The mass was essentially abutting the firm thyroid nodule. The recurrent laryngeal nerve unfortunately was essentially split the 2 masses and was densly adhered to them. It required meticulous dissection to free the nerve both off the thyroid as well as the abutting central neck mass. We essentially had to completely 360 dissect the nerve and there was 1 area where I am quite concerned that the mass was starting to invade into the nerve. I was able to preserve it though. Once the nerve was isolated I then rolled the thyroid off the trachea coming through Galdamez's ligament. It was divided at the isthmus and then placed on the back table for permanent pathology. I then came back and isolated the abnormal appearing central neck mass and meticulously to freed it from the surrounding tissue again taking care not to injure the already dissected and mobilized recurrent nerve. It was sent for permanent pathology as well. Patient's neck was then thoroughly irrigated and suctioned out. The nerve stimulated proximately at 1.0 and distally at 3.0 at the end of the case. 15 [place]ian drain was fashioned in the patient's neck. The left side of the patient's trachea at the isthmus was marked with a Prolene suture.? The?incision was then closed in 2 layers.? They?were?then turned back over to anesthesia to be awoken and extubated. Condition: stable Disposition: PACU Complications:: none
--- NOTE | 2022-10-26 13:14 | EXP.ANES.I ---
[facility] Anesthesia Record Part I Anesthesia Record I Intake, IV Amount: 900 Estimated blood loss (mL): 10 Urine output (mL): 0 Blood Pressure: 142/61 SaO2: 93 Pulse Rate: 77 Respiratory Rate: 13 Temperature: 97.2 F Patient is:: Drowsy and Oral/Nasal airway Stable to PACU at:: 13:11
--- NOTE | 2022-10-26 13:55 | SUR.PHASEI ---
1350- detailed report called to devon leblanc in post op 1352- pt left in stable condition with devon leblanc in post op at this time. All drains, and dressings CDI. bed in lowest position with side rails up. All Vss
--- NOTE | 2022-10-27 08:16 | P.PNANES_ITS ---
[facility] Anesthesia Record Part II Anesthesia Record Part II Discharge Time: 13:51 Destination: Surgical Day Care (OP Surgery) PACU nurse assessment reviewed?: Yes Patient Condition:: Good Anesthesia Complications:: None Swallowing reflex intact?: Yes Cyanosis?: No Blood Pressure: 169/90 Pulse Rate: 74 Temperature: 97.5 F Mental Status: Alert & Oriented Pain level:: 0 Nausea and/or vomitting:: None Intake, IV Amount: 0
[2022-10-27 08:17] VITALS: BP 169/90; PULSE 74; TEMP 36.4
== END 2022-10-26 14:52 | disposition home or self-care (01) ==
PROVIDERS: PCP Family Medicine; Visit Provider Student in an Organized Health Care Education/Training Program
DX: C73 Malignant neoplasm of thyroid gland (principal); C79.89 Secondary malignant neoplasm of other specified sites; E03.9 Hypothyroidism, unspecified; Z79.899 Other long term (current) drug therapy
CPT/HCPCS: 60220; 88307; 96374; J0330; J2405; J2704

== ENCOUNTER → 2022-11-08 11:29 | Outpatient (CLI) | payer MEDICARE, SELFPAY ==
[2022-11-08 12:45] LABS: Free T4 (Free Thyroxine) 1.03 ng/dl (0.78-2.19)
[2022-11-08 13:00] LABS: Thyroid Stimulating Hormone 3.92 uIU/mL (0.465-4.68)
== END ==
PROVIDERS: PCP Family Medicine; Visit Provider Student in an Organized Health Care Education/Training Program
DX: E89.0 Postprocedural hypothyroidism (principal)
CPT/HCPCS: 36415; 84439; 84443

== ENCOUNTER → 2023-01-25 11:45 | Outpatient (CLI) | payer MEDICARE, SELFPAY ==
[2023-01-25 11:52] LABS: MANUAL DIFFERENTIAL MANUAL DIFFERENTIAL (MANUAL DIFF)
[2023-01-25 12:28] LABS: Basophils # 0.1 K/mm3 (0-0.2); Basophils % 0.9 % (0.1-2.0); Eosinophils # 0.7 K/mm3 (0.0-0.4); Eosinophils % 10.5 % (0.1-12.0); Hematocrit 48.7 % (42.0-52.0); Hemoglobin 15.8 g/dL (14.1-18.0); Lymphocytes # 1.8 K/mm3 (0.7-4.5); Lymphocytes % 26.8 % (10-50); Mean Corpuscular HGB Conc 32.5 g/dL (31.8-35.4); Mean Corpuscular Hemoglobin 29.6 pg (27.0-31.2); Mean Corpuscular Volume 91.1 fl (80-94); Mean Platelet Volume 9.3 fl (7.4-10.4); Monocytes # 0.4 K/mm3 (0.1-1.0); Monocytes % 5.7 % (1.7-9.3); Neutrophils # 3.8 K/mm3 (1.8-7.8); Platelet Count 263 K/mm3 (142-424); Red Blood Count 5.35 M/mm3 (4.60-6.20); Red Cell Distribution Width 13.1 % (11.5-17.5); White Blood Count 6.7 K/mm3 (4.8-10.8)
[2023-01-25 12:47] LABS: Alanine Aminotransferase 33 U/L (12-78); Albumin Level 3.9 g/dl (3.5-5.0); Albumin/Globulin Ratio 1.6 (1.1-1.8); Alkaline Phosphatase 64 U/L (38-126); Anion Gap 15.9 mEq/L (5-15); Aspartate Amino Transferase 40 U/L (17-59); Bilirubin,Total 0.7 mg/dl (0.2-1.3); Blood Urea Nitrogen 18 mg/dl (9-20); Calcium 9.2 mg/dl (8.4-10.2); Carbon Dioxide 30 mmol/L (22.0-30.0); Chloride 97 mmol/L (98-107); Estimated Glomerular Filt Rate 50 ml/min (>60); GFR (African American) 60 ML/MIN (>60); Globulin 2.4 g/dL (1.3-3.2); Glucose 86 mg/dl (74-100); Potassium 4.9 mmoL/L (3.5-5.1); Sodium 138 mmol/L (136-145); Total Protein,Serum 6.3 g/dl (6.3-8.2)
[2023-01-25 12:58] LABS: Intact Parathyroid Hormone 40.7 pg/mL (7.5-53.5)
[2023-01-25 20:35] LABS: Eosinophils % 13 % (0-3); Lymphocytes % 26 % (10-50); Monocytes % 1 % (2-9); Neutrophils % 60 % (42-76); Total Cells Counted 100
[2023-01-25 20:36] LABS: Platelet Estimate Normal; RBC Morphology Normal
== END ==
PROVIDERS: PCP Family Medicine; Visit Provider Nurse Practitioner
DX: E89.0 Postprocedural hypothyroidism (principal)
CPT/HCPCS: 36415; 80053; 83970; 85007; 85014; 85018; 85048; 85049

== ENCOUNTER 2023-01-26 07:55 | Day surgery (SDC) | payer MEDICARE, SELFPAY ==
[2023-01-19 13:56] VITALS: BMI 27.6
[2023-01-26 08:14] VITALS: BP 126/61; PULSE 75; RESP 18; TEMP 36.1; O2SAT 95
--- NOTE | 2023-01-26 08:21 | EXP.ANES.CKL ---
[facility] Disclaimer: The information contained in this section may have been updated after the patient was seen, as this information can be updated by other users. Medical History Abnormal PET scan of colon Allergies Asthma CAD (coronary artery disease) COPD (chronic obstructive pulmonary disease) Coronary artery disease Encounter for pre-operative cardiovascular clearance HHD (hypertensive heart disease) History of cataract History of diverticulitis History of gastroesophageal reflux (GERD) [place] (hard of hearing) Hyperlipidemia Hypertension Hypothyroid Irritable bowel syndrome (IBS) Kidney stone Myocardial bridge Thyroid Nodule Surgical History History of hernia surgery History of partial knee replacement History of prostate surgery History of total left knee replacement History of total right knee replacement Hx of cataract surgery Hx of cholecystectomy Hx of sinus surgery Status post thyroidectomy Family History Mother Thyroid cancer Father Leukemia Other Family history of stroke Social History Smoking Status: Former smoker pack-years: 35 second hand exposure: No alcohol intake: current substance use type: denies use current occupational status: retired Travel in the last 8 weeks: None household members: spouse housing: house marital status: education level: high school current occupational exposures/hazards: No caffeine: Yes special ralf needs: No agree to transfusion: No do you feel safe at home: Yes victim of physical abuse: No victim of emotional abuse: No victim of sexual abuse: No would you like helpful sources: No [facility] Anesthesia Checklist Patient Identification Patient Identification: Arm Band and Verbal (Name & ) Structural Data Admitted From: Home Planned Operative Procedure/s: Colonoscopy Consent for Planned Operative Procedure(s) Verified: Yes NPO Status Verified Time NPO: 00:00 Additional verifications Anesthesia Reactions: No Hx Blood Transfusions: Yes Blood Transfusion Reaction: No Airway Assessment C-Spine Mobility Assessed: Yes TMJ Mobility Assessed: Yes Dentition: Edentulous Neurological Assessment Level of Consciousness: Awake Hx Seizures: No Numbness or tingling in extremities: No Anesthesia Plan Anesthesia Risk discussed: Yes Anesthesia Plan: Verified ASA Class: III Anesthesia Type: MAC
[2023-01-26 08:54] VITALS: O2SAT 95
--- NOTE | 2023-01-26 09:07 | HMH.SCOPE ---
Procedure: Date: 01/26/23 Patient Date of :: 1950 Procedure Performed:: Diagnostic Colonoscopy Indications:: Abnormal PET scan Performing Provider:: Peter Duran MD Referring Provider:: Lisa Duran APRN Sedation:: Propofol Procedure:: After placing the patient in the left lateral decubitus position, the colonoscopy was gently inserted into the rectum and under direct visualization advanced to the cecum which was identified by transillumination in the right lower quadrant, identification of the ileocecal valve, appendiceal orifice, and cecal strap. Color, texture, mucosa, and anatomy of the colon were carefully examined with the scope. Findings:: Anal canal: normal Rectum: normal Sigmoid colon: normal without polyps or inflammatory changes, diverticulosis Descending colon: normal without polyps or inflammatory changes Splenic flexure: normal Transverse colon: normal without polyps or inflammatory changes Hepatic flexure: normal Ascending colon: normal without polyps or inflammatory changes Cecum: normal Terminal ileum: not visualized Impression: Sigmoid diverticulosis otherwise normal colonoscopy exam. Rectal region normal. Recommendations:: Follow up examination in about FIVE years or so, sooner if clinically indicated. Complications:: None Estimated blood obtained (mL): 0
[2023-01-26 09:09] VITALS: BP 86/53; PULSE 65; RESP 15; TEMP 36.3; O2SAT 96
[2023-01-26 09:19] VITALS: BP 83/54; PULSE 65; RESP 17; O2SAT 97
[2023-01-26 09:29] VITALS: BP 104/77; PULSE 73; RESP 17; O2SAT 96
[2023-01-26 09:39] VITALS: BP 118/68; PULSE 72; RESP 17; O2SAT 95
== END 2023-01-26 09:43 | disposition home or self-care (01) ==
PROVIDERS: PCP Family Medicine; Visit Provider Internal Medicine Gastroenterology
PROC: 0DJD8ZZ Inspection of Lower Intestinal Tract, Via Natural or Artificial Opening Endoscopic (ICD-10-PCS; CPT 45378; principal; 2023-01-26 09:00)
DX: R93.89 Abnormal findings on diagnostic imaging of other specified body structures (principal); Z86.010 Personal history of colon polyps; K57.30 Diverticulosis of large intestine without perforation or abscess without bleeding
CPT/HCPCS: 45378

== ENCOUNTER 2023-01-31 16:17 | Inpatient (IN) | payer MEDICARE, SELFPAY ==
[2023-01-30 11:03] VITALS: BMI 29.0
[2023-01-31] VITALS (24 sets, daily range): BP systolic 111–165; BP diastolic 55–98; PULSE 67–93; RESP 12–19; TEMP 36.1–36.9; O2SAT 90–98; BMI 31.8
--- NOTE | 2023-01-31 10:45 | P.PN_ITS ---
[facility] Disclaimer: The information contained in this section may have been updated after the patient was seen, as this information can be updated by other users. Medical History Abnormal PET scan of colon Allergies Asthma CAD (coronary artery disease) COPD (chronic obstructive pulmonary disease) Coronary artery disease Encounter for pre-operative cardiovascular clearance HHD (hypertensive heart disease) History of cataract History of diverticulitis History of gastroesophageal reflux (GERD) [place] (hard of hearing) Hyperlipidemia Hypertension Hypothyroid Irritable bowel syndrome (IBS) Kidney stone Myocardial bridge Thyroid Nodule Surgical History History of hernia surgery History of partial knee replacement History of prostate surgery History of total left knee replacement History of total right knee replacement Hx of cataract surgery Hx of cholecystectomy Hx of sinus surgery Status post thyroidectomy Family History Mother Thyroid cancer Father Leukemia Other Family history of stroke Social History Smoking Status: Former smoker pack-years: 35 second hand exposure: No alcohol intake: current substance use type: denies use current occupational status: retired Travel in the last 8 weeks: None household members: spouse housing: house marital status: education level: high school current occupational exposures/hazards: No caffeine: Yes special ralf needs: No agree to transfusion: No do you feel safe at home: Yes victim of physical abuse: No victim of emotional abuse: No victim of sexual abuse: No would you like helpful sources: No [facility] Anesthesia Checklist Patient Identification Patient Identification: Verbal (Name & ) Structural Data Admitted From: Home Planned Operative Procedure/s: thyroidectomy Consent for Planned Operative Procedure(s) Verified: Yes NPO Status Verified Time NPO: 00:00 Additional verifications Anesthesia Reactions: No Hx Blood Transfusions: Yes Blood Transfusion Reaction: No Airway Assessment C-Spine Mobility Assessed: Yes Dentition: Good Dentition Neurological Assessment Level of Consciousness: Awake, Alert and Appropriate Anesthesia Plan Anesthesia Risk discussed: Yes ASA Class: III Anesthesia Type: General
--- NOTE | 2023-01-31 12:04 | P.PNANES_ITS ---
[facility] Anesthesia Record Part I Anesthesia Record I Intake, IV Amount: 1,600 Estimated blood loss (mL): 10 Urine output (mL): 0 Blood Products used (#): none Blood Pressure: 158/80 SaO2: 92 Pulse Rate: 76 Respiratory Rate: 14 Temperature: 97.1 F Patient is:: Drowsy and Stable Stable to PACU at:: 11:58
--- NOTE | 2023-01-31 12:04 | P.OP_ITS ---
Date of procedure: 01/31/23 Pre-op Diagnosis:: papillary thyroid carcinoma Post-op Diagnosis:: same Procedure performed:: completion thyroidectomy Surgeon:: Dylon Ernst MD COMMERCIAL BAKING TEACHER:: Junito Whatley Anesthesia: GETA Estimated blood loss (mL): 20 Operative findings:: removal of left residual thyroid lobe no central neck masses or lesions seen Operative note:: The patient was brought to the OR, laid in the supine position, and general anesthesia with a Nims nerve monitoring endotracheal tube was induced.? Nerve monitor was set up and confirmed to be working appropriately.? Patient was prepped and draped in usual fashion.? Lidocaine with epinephrine 1-100,000 was injected below the incision site.? I dissected through the skin, subcutaneous tissues, and platysma.? The strap muscles were identified at the midline rapha e.? The strap muscles were fairly scarred together from the previous surgery, but ultimately were divided at the raphae.? I then began to dissect the strap muscles off of the left side of the thyroid.? I isolated the superior pedicle and was taken down with a harmonic.?? We then came inferiorly again freeing thyroid from the surrounding tissue.? I then began to roll the thyroid in a lateral to medial fashion out of the patient's neck. The superior parathyroid was identified and preserved.? The recurrent laryngeal nerve was also identified and preserved during this process.? I dissected through Galdamez's ligament and dissected the lobe off the trachea. It was sent for permanent pathology.? Patient's neck was then thoroughly irrigated out.? Hemostasis was achieved with bipolar cautery.? The recurrent laryngeal nerve stimulated both proximally and distally at the end of the case.? 10 Greenlandic drain was fashioned in the patient's neck. The strap muscles were reapproximated. ? The incision was then closed in 2 layers.? They were then turned back over to anesthesia to be awoken and extubated. Condition: stable Disposition: PACU Complications:: none
--- NOTE | 2023-01-31 13:34 | SUR.PHASEII ---
1310- pt in bathroom to use, pt was checked on and noted to have copious amount of blood on floor, toilet, and self. noted to be bleeding at the ILANA drain site, ILANA drain noted to have more blood in it as well. pressure held on bleeding site and dr. martinez notified. pt assisted to bed, cleaned up, dr. martinez at bedside and stated pt needed to be taken back to OR. New consent was obtained by . new iv inserted. and pt taken back to or with jaqueline prieto crna, dr. martinez, loraine crews, and barbara katz rn.
--- NOTE | 2023-01-31 15:24 | SUR.OPER ---
1427- Final count correct, incision site closed and sterile drapes were removed from patient. Back table was left open in sterile fashion. Once volumes were adequate, YARA Ramirez extubated patient. Upon extubation, patient began to cough in which caused blood to fill ILANA drain almost instantly. MD Remington still at bedside, assessed situation and made the decision to reopen the incision site. 1445- MD reopened incision site and held pressure on the site as bleeding continued. MD ordered GARLAND MAKER to reintubate patient. Scrub techrobin Mon and Rayna regowned and opened new tray of instruments and prepped back table supplies. Count was unable to be obtained at this time. Xray will be obtained at end of case for count confirmation. 1504- Patient's was updated of patient's current status per MD request. 1540-Called for radiology to come to bedside for xray count confirmation 1545- Radiology at bedside. Xray obtained, MD assessed and agrees no material or instruments left inside. MD begins to close incision site. 15 polish round ILANA drain placed. 1555- updated of the decision to admit patient per MD request. spoke with Dr.Han stubbs via phone in OR 3 about patient admission. 1615- spoke with about patient admission. Patient will be going to room 213 on med/surg floor. 1625- Report given to СЕРГЕЙ Gusman in PACU.
--- NOTE | 2023-01-31 16:03 | EXP.HP ---
History of Present Illness *Admission Date: 01/31/23 *Reason for visit:: post op thyroidectomy *History of present illness: Jose Vaughn is a 72 year old male with a past medical history of CAD, CKD, COPD, hypertension, hyperlipidemia, papillary thyroid cancer and, hypothyroidism. The patient had half of his thyroid removed approximately 6 months ago and today had the remainder of his thyroid removed. Post-operatively he developed bleeding at the surgical site so had to go back to the OR; the bleeding was likely from an accessory jugular vein on the right and it was cauterized and tied off. He has no complaints at this time. Denies recent fever or chills. Denies chest pain. Initial vitals: BP 132/75 - P 67 - RR 17 - T 97 degrees F - SpO2 97% RA Initial workup: Cr 1.4 (baseline is 1.2-1.4) [facility] Disclaimer: The information contained in this section may have been updated after the patient was seen, as this information can be updated by other users. Medical History (Updated 01/31/23 @ 17:21 by Sam Macdonald MD) Abnormal PET scan of colon Allergies Asthma CAD (coronary artery disease) COPD (chronic obstructive pulmonary disease) Coronary artery disease Encounter for pre-operative cardiovascular clearance HHD (hypertensive heart disease) History of cataract History of diverticulitis History of gastroesophageal reflux (GERD) [place] (hard of hearing) Hyperlipidemia Hypertension Hypothyroid Irritable bowel syndrome (IBS) Kidney stone Myocardial bridge Thyroid Nodule Surgical History History of hernia surgery History of partial knee replacement History of prostate surgery History of total left knee replacement History of total right knee replacement Hx of cataract surgery Hx of cholecystectomy Hx of sinus surgery Status post thyroidectomy Family History Mother Thyroid cancer Father Leukemia Other Family history of stroke Social History Smoking Status: Former smoker pack-years: 35 second hand exposure: No alcohol intake: current substance use type: denies use current occupational status: retired Travel in the last 8 weeks: None household members: spouse housing: house marital status: education level: high school current occupational exposures/hazards: No caffeine: Yes special ralf needs: No agree to transfusion: No do you feel safe at home: Yes victim of physical abuse: No victim of emotional abuse: No victim of sexual abuse: No would you like helpful sources: No Review of Systems Review of Systems Review of systems:: pertinent systems reviewed and negative unless documented below Meds Home Medications and Allergies Home Medications Medication Instructions Recorded Confirmed Type allopurinol 100 mg tablet 100 mg PO QDAY gout 10/03/17 01/31/23 History clonazepam 1 mg tablet 1 mg PO BID Anxiety 10/03/17 01/31/23 History gabapentin 300 mg capsule 300 mg PO BID Pain 04/24/18 01/31/23 History levalbuterol HCl 1.25 mg/3 mL 1.25 mg inhalation Q4H PRN 04/24/18 01/31/23 History solution for nebulization Breathing problems rosuvastatin 20 mg tablet 20 mg PO DAILY Cholesterol 08/23/21 01/31/23 History fenofibric acid (choline) 135 mg 135 mg PO DAILY Cholesterol 08/12/22 01/31/23 History capsule,delayed release linaclotide 290 mcg capsule 290 mcg PO DAILY bowels 08/12/22 01/31/23 History (Linzess) beclomethasone dipropionate 80 80 mcg intranasal DAILY ALLERGIES 10/24/22 01/31/23 History mcg/actuation nasal HFA inhaler (QNASL) clotrimazole 1 % topical solution 1 applic topical BID . 01/26/23 01/31/23 History hydrocodone 7.5 mg-acetaminophen 1 tab PO Q6H PRN pain #20 tabs 01/31/23 Rx 325 mg tablet levothyroxine 137 mcg capsule 137 mcg PO DAILY #60 caps 01/31/23 Rx ondansetron HCl 4 mg tablet 4 mg PO
--- NOTE | 2023-01-31 16:04 | FL_ITS ---
FINAL REPORT CLINICAL HISTORY: .patient on operating room table waiting results, 3 images from c-arm. evaluate for foreign objects left behind during broncoscopy procedure. FINDINGS: Fluoroscopic guidance was provided for the operating services. Three spot films were obtained to evaluate for foreign objects. An ET tube is present. There is presumed dental hardware. A linear structure courses obliquely over the upper thorax of uncertain etiology. IMPRESSION: Linear structure of uncertain etiology could be on or in the patient. Reviewed, Interpreted and Dictated by Enrique Hernandez III, MD Transcribed by Antonio Galarza Authenticated and [facility]
--- NOTE | 2023-01-31 16:23 | P.OP_ITS ---
Date of procedure: 01/31/23 Pre-op Diagnosis:: post operative hemorrhage Post-op Diagnosis:: same Procedure performed:: neck exploration with control of post operative hemorrhage Surgeon:: Dylon Ernst MD Anesthesia: GETA Estimated blood loss (mL): 300 Operative findings:: bleeding identified from branches of the right AJ vein as it crosses midline Operative note:: I was notified by the recovery area that as the patient was essentially on his way out the door to be discharged he started having significant bleeding into his drain and around the drain site. He had had no significant bleeding prior to that. On my evaluation at the bedside patient had about 50 to 60 cc of blood in his drain and was oozing from around the drain insertion site. I immediately open the patient's neck at bedside and arrange for a level 1 return to the OR for control bleeding. Patient was moved back to the OR and successfully reintubated. He was prepped and draped in the usual fashion. I reopened the patient's neck incision and explored the wound. By the time he got into the OR the bleeding had essentially stopped and other than a couple of small venous oozing I did not identify an obvious major bleed. I recauterized the residual superior pedicle thinking that may be where the bleeding had come from. Patient's neck was thoroughly irrigated out and then he was reclosed. A fresh drain was placed. Unfortunately immediately on extubation with the patient coughed and he again had significant bleeding into his drain, approximately 100 cc. We immediately reintubated the patient without complication. Anesthesia did not report any airway edema. I reopen the wound and at this time it became obvious the bleeding was coming from likely an accessory jugular vein on the right as it crossed over midline in the superior/midline aspect of the wound. I was able to cauterize the bleeding and then explored the area. I tied off the vein in a couple different spots to try to further prevent any rebleeding. His neck was reirrigated and suctioned out. I then again closed him after fashioning a 15 [place] drain into the wound. He was then turned back over to anesthesia to be extubated and taken to recovery. Condition: stable Disposition: floor Complications:: see above - rebleed on initial extubation
--- NOTE | 2023-01-31 16:28 | P.PNANES_ITS ---
[facility] Anesthesia Record Part I Anesthesia Record I Intake, IV Amount: 1,500 Estimated blood loss (mL): 300 Urine output (mL): 0 Blood Pressure: 158/72 SaO2: 92 Pulse Rate: 72 Respiratory Rate: 12 Temperature: 97.5 F Patient is:: Awake and Stable Stable to PACU at:: 16:25
--- NOTE | 2023-01-31 17:06 | SUR.PHASEI ---
1650 - attempted to call report to floor, no answer 1700 - attempted to call report to floor again, no answer. spoke to charge nurse, states pt's nurse is in w/ a pt at this time and that she will call PACU back when she is available for report.
--- NOTE | 2023-01-31 17:28 | PC.NURSE ---
Patient arrived to room
[2023-01-31 17:44] LABS: Coronavirus 19, PCR Not Detected (NotDetected); Influenza A, PCR Not Detected (NotDetected); Influenza B, PCR Not Detected (NotDetected)
--- NOTE | 2023-01-31 19:26 | PC.NURSE ---
Post op surgical site secured with dermabond and sutures to the ILANA drain site.
[2023-02-01 00:27] VITALS: BP 125/53; PULSE 84; RESP 18; TEMP 36.6; O2SAT 95
[2023-02-01 04:00] VITALS: BP 143/79; PULSE 79; RESP 16; TEMP 36.4; O2SAT 96; BMI 30.5
[2023-02-01 06:15] VITALS: PULSE 81; PULSE 84
[2023-02-01 06:30] LABS: Blood Urea Nitrogen 25 mg/dl (9-20); Calcium 8.3 mg/dl (8.4-10.2); Carbon Dioxide 31 mmol/L (22.0-30.0); Chloride 95 mmol/L (98-107); Creatinine Clearance Estimated 67 mL/min (50-200); Estimated Glomerular Filt Rate 59 ml/min (>60); GFR (African American) 72 ML/MIN (>60); Glucose 128 mg/dl (74-100); Sodium 134 mmol/L (136-145)
[2023-02-01 06:41] LABS: Basophils % 0.1 % (0.1-2.0); Eosinophils % 0.1 % (0.1-12.0); Hematocrit 42.3 % (42.0-52.0); Hemoglobin 13.7 g/dL (14.1-18.0); Lymphocytes # 0.6 K/mm3 (0.7-4.5); Lymphocytes % 7.5 % (10-50); Mean Corpuscular HGB Conc 32.3 g/dL (31.8-35.4); Mean Corpuscular Hemoglobin 29.5 pg (27.0-31.2); Mean Corpuscular Volume 91.4 fl (80-94); Mean Platelet Volume 9.6 fl (7.4-10.4); Monocytes # 0.2 K/mm3 (0.1-1.0); Monocytes % 2.2 % (1.7-9.3); Neutrophils # 7.3 K/mm3 (1.8-7.8); Neutrophils % 90.2 % (37.0-80.0); Platelet Count 193 K/mm3 (142-424); Red Blood Count 4.62 M/mm3 (4.60-6.20); Red Cell Distribution Width 12.8 % (11.5-17.5); White Blood Count 8.1 K/mm3 (4.8-10.8)
[2023-02-01 06:45] LABS: MANUAL DIFFERENTIAL MANUAL DIFFERENTIAL (MANUAL DIFF)
[2023-02-01 07:26] VITALS: BP 141/65; PULSE 87; RESP 18; TEMP 36.6; O2SAT 96
[2023-02-01 07:35] LABS: Lymphocytes % 13 % (10-50); Monocytes % 2 % (2-9); Neutrophils % 85 % (42-76); Platelet Estimate Normal; RBC Morphology Normal; Total Cells Counted 100
--- NOTE | 2023-02-01 07:35 | P.PNANES_ITS ---
[facility] Anesthesia Record Part II Anesthesia Record Part II Discharge Time: 16:55 Destination: Medical Surgical Department PACU nurse assessment reviewed?: Yes Patient Condition:: Good Anesthesia Complications:: None Swallowing reflex intact?: Yes Cyanosis?: No Blood Pressure: 161/95 Pulse Rate: 69 Temperature: 97.9 F Mental Status: Alert & Oriented Pain level:: 0 Nausea and/or vomitting:: None Intake, IV Amount: 0
[2023-02-01 07:36] VITALS: BP 161/95; PULSE 69; TEMP 36.6
--- NOTE | 2023-02-01 07:55 | EXP.PN ---
Subjective *Date: 02/01/23 *Time: 07:57 Interval history: ILANA output since midnight is 20mL Exam Data for Last 24 hours Vital signs and Labs for Last 24 Hours: Temp Pulse Resp BP Pulse Ox 97.9 F 69 18 161/95 H 96 02/01/23 07:36 02/01/23 07:36 02/01/23 07:26 02/01/23 07:36 02/01/23 07:26 Laboratory Results - last 24 hr 01/31/23 17:41: SARS-CoV-2 (PCR) Not detected, Influenza A Untype (PCR) Not detected, Influenza Type B (PCR) Not detected 02/01/23 05:53: WBC 8.1, RBC 4.62, Hgb 13.7 L, Hct 42.3, MCV 91.4, MCH 29.5, MCHC 32.3, RDW 12.8, Plt Count 193, MPV 9.6, Neut % (Auto) 90.2 H, Lymph % (Auto) 7.5 L, [place] % (Auto) 2.2, Eos % (Auto) 0.1, Baso % (Auto) 0.1, Neut # (Auto) 7.3, Lymph # (Auto) 0.6 L, [place] # (Auto) 0.2, Eos # (Auto) 0.0, Baso # (Auto) 0.0, Total Counted 100, Neutrophils % (Manual) 85 H, Lymphocytes % (Manual) 13, Monocytes % (Manual) 2, Platelet Estimate Normal, RBC Morphology Normal 02/01/23 05:53: Sodium 134 L, Potassium 5.0, Chloride 95 L, Carbon Dioxide 31 H, Anion Gap 13.0, BUN 25 H, Creatinine 1.20, Estimated Creat Clear 67, Estimated GFR 59, Est GFR ( Amer) 72, Glucose 128 H, Calcium 8.3 L I & O for Last 24 hours: Intake & Output 01/29/23 01/30/23 01/31/23 02/01/23 23:59 23:59 23:59 23:59 Intake Total 3460 / 4460 1360 / 1360 Output Total 0 20 20 / 20 Balance 3460 / 4440 1340 / 1340 Weight 83.915 kg 92.278 kg 88.314 kg Assessment and Plan *Assessment and plan (1) Status post thyroidectomy: Status: Acute Category: Surgical Code(s): E89.0 - Postprocedural hypothyroidism (2) Hemorrhage: Status: Acute Category: Medical Code(s): R58 - Hemorrhage, not elsewhere classified (3) Chest pain: Status: Acute Qualifiers: Chest pain type: unspecified Qualified Code(s): R07.9 - Chest pain, unspecified Category: Medical Code(s): R07.9 - Chest pain, unspecified Plan #thyroidectomy complicated by post-op hemorrhage #COPD #CAD #CKD #hypothyroidism Resume levothyroxine once dose has been reconciled. Start Duonebs TID Cardiac diet Full code DVT ppx: SCDs Anticipate D/C in AM
--- NOTE | 2023-02-01 08:12 | HMH.PHAINT1 ---
Pharmacy Intervention Comments: home medication list clarified after pt interview
--- NOTE | 2023-02-01 08:33 | HMH.PHAINT1 ---
Pharmacy Intervention Comments: Home med list verified through list from PCP office.
--- NOTE | 2023-02-01 10:19 | EXP.PN ---
Subjective *Date: 02/01/23 *Time: 10:19 Interval history: Well after completion thyroidectomy and evacuation of postoperative hematoma yesterday. He has no pain or discomfort and denies hoarseness or dysphagia and denies any airway difficulties Exam Data for Last 24 hours Vital signs and Labs for Last 24 Hours: Temp Pulse Resp BP Pulse Ox 97.9 F 69 18 161/95 H 96 02/01/23 07:36 02/01/23 07:36 02/01/23 07:26 02/01/23 07:36 02/01/23 07:26 Laboratory Results - last 24 hr 01/31/23 17:41: SARS-CoV-2 (PCR) Not detected, Influenza A Untype (PCR) Not detected, Influenza Type B (PCR) Not detected 02/01/23 05:53: WBC 8.1, RBC 4.62, Hgb 13.7 L, Hct 42.3, MCV 91.4, MCH 29.5, MCHC 32.3, RDW 12.8, Plt Count 193, MPV 9.6, Neut % (Auto) 90.2 H, Lymph % (Auto) 7.5 L, [place] % (Auto) 2.2, Eos % (Auto) 0.1, Baso % (Auto) 0.1, Neut # (Auto) 7.3, Lymph # (Auto) 0.6 L, [place] # (Auto) 0.2, Eos # (Auto) 0.0, Baso # (Auto) 0.0, Total Counted 100, Neutrophils % (Manual) 85 H, Lymphocytes % (Manual) 13, Monocytes % (Manual) 2, Platelet Estimate Normal, RBC Morphology Normal 02/01/23 05:53: Sodium 134 L, Potassium 5.0, Chloride 95 L, Carbon Dioxide 31 H, Anion Gap 13.0, BUN 25 H, Creatinine 1.20, Estimated Creat Clear 67, Estimated GFR 59, Est GFR ( Amer) 72, Glucose 128 H, Calcium 8.3 L I & O for Last 24 hours: Intake & Output 01/29/23 01/30/23 01/31/23 02/01/23 23:59 23:59 23:59 23:59 Intake Total 3460 / 4460 1360 / 1360 Output Total Balance 3460 / 4440 1340 / 1340 Weight 185 lb 203 lb 7 oz 194 lb 11.2 oz *Routine Neck Exam Neck: Present supple Comments: Neck wounds are flat with no evidence of hematoma or seroma. [place] drainage noted. Assessment and Plan *Assessment and plan (1) Papillary thyroid carcinoma: Problem Comment: two lesions removed- + for papillary carcinoma of the thyroid. Surgeon is watching a third lesion. Denies any difficulty swallowing and voice is improving post op. Status: Acute Category: Medical Code(s): C73 - Malignant neoplasm of thyroid gland (2) Status post thyroidectomy: Status: Acute Category: Surgical Code(s): E89.0 - Postprocedural hypothyroidism Plan He is doing well after completion thyroidectomy and then the evacuation of postoperative hematoma. His drain is functioning well. He has no evidence of recurrence of his hematoma. He will be seen in clinic tomorrow for removal of his surgical drain. Final path is pending.
--- NOTE | 2023-02-01 10:55 | EXP.DC.SUM ---
General Admission date:: 01/31/23 Discharge date: 02/01/23 HPI HPI HPI: Jose Vaughn is a 72 year old male with a past medical history of CAD, CKD, COPD, hypertension, hyperlipidemia, papillary thyroid cancer and, hypothyroidism. The patient had half of his thyroid removed approximately 6 months ago and today had the remainder of his thyroid removed. Post-operatively he developed bleeding at the surgical site so had to go back to the OR; the bleeding was likely from an accessory jugular vein on the right and it was cauterized and tied off. He has no complaints at this time. Denies recent fever or chills. Denies chest pain. Initial vitals: BP 132/75 - P 67 - RR 17 - T 97 degrees F - SpO2 97% RA Initial workup: Cr 1.4 (baseline is 1.2-1.4) Hospital Course Hospital Course Hospital Course: The patient was observed overnight and there were no acute events. He will need to follow up with E/N/T tomorrow for surgical drain removal and will need to follow up with his PCP in one week. Exam Data for Last 24 hours Vital signs and Labs for Last 24 Hours: Temp Pulse Resp BP Pulse Ox 97.9 F 69 18 161/95 H 96 02/01/23 07:36 02/01/23 07:36 02/01/23 07:26 02/01/23 07:36 02/01/23 07:26 Laboratory Results - last 24 hr 01/31/23 17:41: SARS-CoV-2 (PCR) Not detected, Influenza A Untype (PCR) Not detected, Influenza Type B (PCR) Not detected 02/01/23 05:53: WBC 8.1, RBC 4.62, Hgb 13.7 L, Hct 42.3, MCV 91.4, MCH 29.5, MCHC 32.3, RDW 12.8, Plt Count 193, MPV 9.6, Neut % (Auto) 90.2 H, Lymph % (Auto) 7.5 L, [place] % (Auto) 2.2, Eos % (Auto) 0.1, Baso % (Auto) 0.1, Neut # (Auto) 7.3, Lymph # (Auto) 0.6 L, [place] # (Auto) 0.2, Eos # (Auto) 0.0, Baso # (Auto) 0.0, Total Counted 100, Neutrophils % (Manual) 85 H, Lymphocytes % (Manual) 13, Monocytes % (Manual) 2, Platelet Estimate Normal, RBC Morphology Normal 02/01/23 05:53: Sodium 134 L, Potassium 5.0, Chloride 95 L, Carbon Dioxide 31 H, Anion Gap 13.0, BUN 25 H, Creatinine 1.20, Estimated Creat Clear 67, Estimated GFR 59, Est GFR ( Amer) 72, Glucose 128 H, Calcium 8.3 L I & O for Last 24 hours: Intake & Output 01/29/23 01/30/23 01/31/23 02/01/23 23:59 23:59 23:59 23:59 Intake Total 3460 / 4460 1360 / 1360 Output Total Balance 3460 / 4440 1340 / 1340 Weight 83.915 kg 92.278 kg 88.314 kg Constitutional Constitutional: no acute distress *Routine HEENT Exam Head: Present normocephalic Eye: Present EOMI and PERRL ENT: Present mucous membranes moist *Routine Neck Exam Neck: Present supple Comments: sutures along surgical incision with ILANA drain; no significant erythema or swelling around surgical site. *Routine Respiratory Exam Respiratory: Present CTA bilaterally *Routine Cardiovascular Exam Cardiovascular: Present RRR *Routine Abdominal Exam Abdominal: Present soft and normoactive bowel sounds; Absent tenderness *Routine Extremities Exam Extremities: Absent cyanosis, clubbing or edema *Routine Skin Exam Skin: Present warm; Absent rash *Routine Neurological Exam Neurological: Present alert and oriented X3 Results Data Completed and Pending Labs on day of discharge: Labs from last 24 hours 02/01/23 02/01/23 01/31/23 05:53 05:53 17:41 WBC 8.1 RBC 4.62 Hgb 13.7 L Hct 42.3 MCV 91.4 MCH 29.5 MCHC 32.3 RDW 12.8 Plt Count 193 MPV 9.6 Neut % (Auto) 90.2 H Lymph % (Auto) 7.5 L [place] % (Auto) 2.2 Eos % (Auto) 0.1 Baso % (Auto) 0.1 Neut # (Auto) 7.3 Lymph # (Auto) 0.6 L [place] # (Auto) 0.2 Eos # (Auto) 0.0 Baso # (Auto) 0.0 Total Counted 100 Neutrophils % (Manual) 85 H Lymphocytes % (Manual) 13 Monocytes % (Manual) 2 Platelet Estimate Normal RBC Morphology Normal Sodium 134 L Potassium 5.0 Chloride 95 L Carbon Dioxide 31 H Anion Gap 13.0 BUN 25 H Creatinine 1.20 Estimated Creat Clear 67 Estimated GFR 59 Est GFR ( Amer) 72 Gl
--- NOTE | 2023-02-01 11:03 | HMH.PHAINT1 ---
Pharmacy Intervention Comments: Discharge medication counseling completed. Patient was starting the following meds: -hydrocodone/APAP: told him to take every 6 hours only as needed for pain. Said it could make him drowsy or potentially cause constipation. -Zofran: told him to take up to three times a day only as needed for nausea and/or vomiting. Told of potential side effects of headache or fatigue. Patient's dose of levothyroxine was being increased post-thyroidectomy to 137mcg from 25mcg. Told patient to chart picker the new prescription for 137mcg and to no longer take the 25mcg if he still had some at home. Both the patient and his verbalized understanding and had no questions.
--- NOTE | 2023-02-03 14:50 | CARE MANAGER ---
Attempted to contact patient x2 related to hospital discharge. Left VM. [facility]
== END 2023-02-01 11:36 | disposition home or self-care (01) | DRG 626 ==
LOC: 2ND 16:19
PROVIDERS: Family Medicine; Student in an Organized Health Care Education/Training Program; Admitting Provider Internal Medicine; PCP Family Medicine; Visit Provider Internal Medicine
PROC: 0GTG0ZZ Resection of Left Thyroid Gland Lobe, Open Approach (ICD-10-PCS; principal; 2023-01-31 09:30)
DX: C73 Malignant neoplasm of thyroid gland (principal); E89.810 Postprocedural hemorrhage of an endocrine system organ or structure following an endocrine system procedure; Y83.9 Surgical procedure, unspecified as the cause of abnormal reaction of the patient, or of later complication, without mention of misadventure at the time of the procedure; I25.10 Atherosclerotic heart disease of native coronary artery without angina pectoris; N18.9 Chronic kidney disease, unspecified; I12.9 Hypertensive chronic kidney disease with stage 1 through stage 4 chronic kidney disease, or unspecified chronic kidney disease; E78.5 Hyperlipidemia, unspecified; J44.9 Chronic obstructive pulmonary disease, unspecified; Z79.899 Other long term (current) drug therapy; Z87.891 Personal history of nicotine dependence
CPT/HCPCS: 60260; 35800; 36415; 76000; 80048; 85007; 85025; 87636; 88307; 94640; 96374; C9803; G0378; J0330; J2405; U0003; U0005

== ENCOUNTER → 2023-04-17 14:03 | Outpatient (CLI) | payer MEDICARE, SELFPAY ==
[2023-04-17 14:45] LABS: Basophils % 0.3 % (0.1-2.0); Eosinophils # 0.1 K/mm3 (0.0-0.4); Eosinophils % 1.4 % (0.1-12.0); Hemoglobin 14.6 g/dL (14.1-18.0); Lymphocytes # 0.7 K/mm3 (0.7-4.5); Lymphocytes % 14.9 % (10-50); Mean Corpuscular HGB Conc 32.5 g/dL (31.8-35.4); Mean Corpuscular Volume 89.2 fl (80-94); Mean Platelet Volume 9.2 fl (7.4-10.4); Monocytes # 0.2 K/mm3 (0.1-1.0); Monocytes % 3.2 % (1.7-9.3); Neutrophils # 3.7 K/mm3 (1.8-7.8); Neutrophils % 80.2 % (37.0-80.0); Platelet Count 243 K/mm3 (142-424); Red Blood Count 5.04 M/mm3 (4.60-6.20); White Blood Count 4.6 K/mm3 (4.8-10.8)
[2023-04-22 00:09] LABS: D001-IgE D pteronyssinus 0.33 kU/L (Class I); D002-IgE D farinae 0.46 kU/L (Class I); E001-IgE Cat Dander 8.37 kU/L (Class IV); E005-IgE Dog Dander 0.51 kU/L (Class I); E072-IgE Mouse Urine <0.10 kU/L (Class 0); G002-IgE Bermuda Grass <0.10 kU/L (Class 0); G006-IgE Timothy Grass <0.10 kU/L (Class 0); I006-IgE Cockroach, German 0.11 kU/L (Class 0/I); Immunoglobulin E, Total 1885 IU/mL (6-495); M001-IgE Penicillium chrysogen <0.10 kU/L (Class 0); M002-IgE Cladosporium herbarum <0.10 kU/L (Class 0); M003-IgE Aspergillus fumigatus 0.41 kU/L (Class I); M006-IgE Alternaria alternata <0.10 kU/L (Class 0); T001-IgE Maple/Box Elder <0.10 kU/L (Class 0); T003-IgE Common Silver Birch <0.10 kU/L (Class 0); T006-IgE Cedar, Mountain <0.10 kU/L (Class 0); T007-IgE Oak, White <0.10 kU/L (Class 0); T008-IgE Elm, American <0.10 kU/L (Class 0); T010-IgE Walnut <0.10 kU/L (Class 0); T011-IgE Maple Leaf Sycamore <0.10 kU/L (Class 0); T014-IgE Cottonwood <0.10 kU/L (Class 0); T015-IgE Ash, White <0.10 kU/L (Class 0); T022-IgE Pecan, Hickory 0.12 kU/L (Class 0/I); T070-IgE White Mulberry <0.10 kU/L (Class 0); W001-IgE Ragweed, Short <0.10 kU/L (Class 0); W011-IgE Thistle, Russian <0.10 kU/L (Class 0); W014-IgE Pigweed, Common <0.10 kU/L (Class 0); W018-IgE Sheep Sorrel <0.10 kU/L (Class 0)
== END ==
PROVIDERS: PCP Physician Assistant; Visit Provider Internal Medicine Pulmonary Disease
DX: J45.909 Unspecified asthma, uncomplicated (principal)
CPT/HCPCS: 36415; 82785; 85025; 86003

== ENCOUNTER → 2023-04-25 07:37 | Outpatient (CLI) | payer MEDICARE, SELFPAY ==
[2023-04-25 08:48] LABS: Anion Gap 11.2 mEq/L (5-15); Blood Urea Nitrogen 28 mg/dl (9-20); Calcium 9.4 mg/dl (8.4-10.2); Carbon Dioxide 27 mmol/L (22.0-30.0); Chloride 105 mmol/L (98-107); Estimated Glomerular Filt Rate 46 ml/min (>60); GFR (African American) 55 ML/MIN (>60); Glucose 97 mg/dl (74-100); Potassium 4.2 mmoL/L (3.5-5.1); Sodium 139 mmol/L (136-145)
== END ==
PROVIDERS: PCP Physician Assistant; Visit Provider Physician Assistant
DX: N28.9 Disorder of kidney and ureter, unspecified (principal)
CPT/HCPCS: 36415; 80048

== ENCOUNTER → 2023-05-01 09:01 | Outpatient (CLI) | payer MEDICARE, SELFPAY ==
[2023-05-01 14:18] LABS: Blood Urea Nitrogen 30 mg/dl (9-20); Calcium 9.4 mg/dl (8.4-10.2); Carbon Dioxide 27 mmol/L (22.0-30.0); Chloride 104 mmol/L (98-107); Estimated Glomerular Filt Rate 54 ml/min (>60); GFR (African American) 65 ML/MIN (>60); Glucose 78 mg/dl (74-100); Sodium 139 mmol/L (136-145)
== END ==
PROVIDERS: PCP Physician Assistant; Visit Provider Physician Assistant
DX: N28.9 Disorder of kidney and ureter, unspecified (principal)
CPT/HCPCS: 36415; 80048

== ENCOUNTER → 2023-05-01 09:28 | Outpatient (POV) | payer MEDICARE, SELFPAY ==
[2023-05-01 09:41] VITALS: BP 135/68; PULSE 67; RESP 18; O2SAT 97; BMI 28.1
--- NOTE | 2023-05-01 09:52 | EXP.PAIN.OV ---
HPI Data of Consult Patient: new to practice Consult date: 05/01/23 Requesting Physician: Danielle Wright APRN Primary Care Provider: Juan Bello MD Consult Narrative Reason for consult: Low back pain, right hip pain History of present illness: Mr. Vaughn is a 72 year old male who presents today as a new patient. He is a referral from Ania Richey's office. Today he rates his pain an 8 out of 10. Patient states his pain is all in his low back with radiating symptoms to his right hip and into his leg. He does describe this as an aching, throbbing sensation that is worse with increased activity. Patient states this pain has been going on for over 1 year however the last month has been progressively worse. Patient denies any specific trauma or injury that initially started his symptoms. He does state the pain is worse with walking. He states he has been trying to lose weight however the worsening pain makes it difficult to exercise. he states he frequently has to stop and take multiple breaks due to the pain and cannot typically walk more than 300 to 400 feet at a time. He does interfere with his ability perform activities of daily living such as cooking or cleaning. He continues to do active exercise and stretching techniques at home and has for the last 12 weeks or more with no additional relief. Patient has tried [id number] medications such as Tylenol and ibuprofen along with heat and ice and topicals with minimal relief. He does take his ibuprofen on a regular basis for slight improvement. Patient denies any previous surgery or physical therapy or chiropractor therapy. He does state in the past he has had injections done by Dr. Camarena and that they did provide significant improvement. He is interested in receiving an injection for his pain. Patient has not had any recent imaging. He is currently prescribed clonazepam 1 mg twice a day from his primary care doctor. He does state that he is scheduled for an upcoming stress test on May 30 unrelated to any chest pain. He states he was having some chest tightness but he also has chronic asthma and has been told that this is most likely coming from this but as a precaution they are going to rule out any cardiac issues. His Ezio is [id number]. Its been reviewed and appropriate. CC: Danielle Wright APRN [facility] Disclaimer: The information contained in this section may have been updated after the patient was seen, as this information can be updated by other users. Medical History (Updated 05/01/23 @ 09:55 by Danielle Wright APRN) Abnormal PET scan of colon Allergic rhinitis Allergies Asthma CAD (coronary artery disease) COPD (chronic obstructive pulmonary disease) Coronary artery disease Dyspnea on exertion Encounter for pre-operative cardiovascular clearance HHD (hypertensive heart disease) History of cataract History of COPD History of diverticulitis History of gastroesophageal reflux (GERD) History of smoking 30 or more pack years [place] (hard of hearing) Hyperlipidemia Hypertension Hypothyroid Impacted cerumen, left ear Irritable bowel syndrome (IBS) Kidney stone Myocardial bridge Thyroid Nodule Surgical History History of hernia surgery History of partial knee replacement History of prostate surgery History of total left knee replacement History of total right knee replacement Hx of cataract surgery Hx of cholecystectomy Hx of sinus surgery Status post thyroidectomy Status post thyroidectomy Family History Mother Thyroid cancer Father Leukemia Other Family history of stroke Social History Smoking Status: Former smoker pack-years: 35 second hand exposure: No alcohol intake: current substance use type: denies use current occupational status: retired Travel in the last 8 weeks: None household members:
== END ==
PROVIDERS: PCP Pediatrics; Visit Provider Nurse Practitioner Family
DX: M25.551 Pain in right hip; M51.16 Intervertebral disc disorders with radiculopathy, lumbar region
CPT/HCPCS: 36415; 80048; 99202; G0463

== ENCOUNTER 2023-05-16 08:12 | Day surgery (SDC) | payer MEDICARE, SELFPAY ==
[2023-05-16 08:21] VITALS: BP 128/75; PULSE 74; RESP 18; O2SAT 95; BMI 27.6
[2023-05-16 08:35] VITALS: BP 121/62; PULSE 56; RESP 18; O2SAT 97
[2023-05-16 08:36] VITALS: BP 121/62; PULSE 65; RESP 18; O2SAT 97
[2023-05-16 08:45] VITALS: BP 132/63; PULSE 66; RESP 20
--- NOTE | 2023-05-16 08:47 | P.PCN_ITS ---
Procedure Date: 05/16/23 Time: 08:40 Anesthesiologist:: Jassi Peck CRNA Complications:: None Pre-procedure Diagnosis:: Degenerative disc lumbar spine multilevels. Lumbar radiculopathy. Lumbar disc bulge L4-5, L5-S1. Post-procedure Diagnosis:: Same. Indications for Procedure:: Patient is a very pleasant 72-year-old male that comes our clinic today for repeat left L4-5, L5-S1 transforaminal epidural steroid injection. Patient has had this in the past with significant improvement. He reports left posterior hip and leg radicular symptoms to the foot. However, injections have increased his level of activity due to pain decreasing. He rates his pain today 02/18 Procedure Details:: Details of the procedure were explained to the patient. The patient was taken the procedure room placed in the prone position. The area of the lumbar spine was cleansed using chlorhexidine as a cleansing solution. At this time using fluoroscopy guidance markers were placed on the left lateral border of the L4 and L5 vertebral body. The skin and subcutaneous tissue was anesthetized using 1% lidocaine and 25-gauge needle. At this time using a 22-gauge 3-1/2 inch spinal needle the right upper one third of the L4-5 foramen was accessed. The s gayla was done at the left L5-S1 foramen. Needle positions were confirmed and a lateral view using fluoroscopy and contrast dye. At this time 1 cc of 1% lidocaine +20 mg of Depo-Medrol was injected at each level after negative aspiration. [place] were removed. Band-Aid applied. Patient tolerated the procedure without difficulty. There are no complications. Plan and Disposition:: Patient was discharged without incident.
== END 2023-05-16 08:45 | disposition home or self-care (01) ==
PROVIDERS: PCP Pediatrics; Visit Provider Nurse Anesthetist, Certified Registered
DX: M51.16 Intervertebral disc disorders with radiculopathy, lumbar region (principal)
CPT/HCPCS: 64483; 64484; J1030

== ENCOUNTER → 2023-05-20 08:02 | Outpatient (CLI) | payer MEDICARE, SELFPAY | PROVIDERS: PCP Physician Assistant; Visit Provider Physician Assistant | DX: R00.2 Palpitations (principal) | CPT/HCPCS: 93225; 93226 ==

== ENCOUNTER → 2023-05-26 10:37 | Outpatient (CLI) | payer MEDICARE, SELFPAY ==
[2023-05-26 11:16] LABS: Basophils # 0.1 K/mm3 (0-0.2); Basophils % 0.7 % (0.1-2.0); Eosinophils # 0.2 K/mm3 (0.0-0.4); Eosinophils % 2.7 % (0.1-12.0); Hematocrit 49.8 % (42.0-52.0); Hemoglobin 15.6 g/dL (14.1-18.0); Lymphocytes # 1.5 K/mm3 (0.7-4.5); Lymphocytes % 21.3 % (10-50); Mean Corpuscular HGB Conc 31.4 g/dL (31.8-35.4); Mean Corpuscular Hemoglobin 28.5 pg (27.0-31.2); Mean Corpuscular Volume 90.8 fl (80-94); Mean Platelet Volume 9.6 fl (7.4-10.4); Monocytes # 0.5 K/mm3 (0.1-1.0); Monocytes % 7.1 % (1.7-9.3); Neutrophils # 4.8 K/mm3 (1.8-7.8); Neutrophils % 68.1 % (37.0-80.0); Platelet Count 231 K/mm3 (142-424); Red Blood Count 5.48 M/mm3 (4.60-6.20)
[2023-05-26 12:04] LABS: Alanine Aminotransferase 27 U/L (12-78); Albumin Level 3.8 g/dl (3.5-5.0); Alkaline Phosphatase 77 U/L (38-126); Anion Gap 12.8 mEq/L (5-15); Aspartate Amino Transferase 31 U/L (17-59); Bilirubin,Direct 0.1 mg/dl (0.0-0.4); Bilirubin,Indirect 0.3 mg/dL (0.0-0.9); Bilirubin,Total 0.4 mg/dl (0.2-1.3); Bilirubin,Unconjugated 0.3 mg/dL (0.0-1.1); Blood Urea Nitrogen 33 mg/dl (9-20); Calcium 9.2 mg/dl (8.4-10.2); Carbon Dioxide 27 mmol/L (22.0-30.0); Chloride 103 mmol/L (98-107); Chol/HDL Ratio 3.3 (1-3.5); Cholesterol 167 mg/dl (140-200); Estimated Glomerular Filt Rate 54 ml/min (>60); GFR (African American) 65 ML/MIN (>60); Glucose 95 mg/dl (74-100); HDL Cholesterol 50 mg/dl (40-60); Potassium 4.8 mmoL/L (3.5-5.1); Sodium 138 mmol/L (136-145); Total Protein,Serum 6.4 g/dl (6.3-8.2); Triglycerides 96 mg/dl (30-150); VLDL Cholesterol 19 mg/dL (0-40)
[2023-05-26 12:15] LABS: Direct LDL Cholesterol 98.65 mg/dL (100-129)
[2023-05-26 12:20] LABS: Free T4 (Free Thyroxine) 1.43 ng/dl (0.78-2.19)
[2023-05-26 12:35] LABS: Thyroid Stimulating Hormone 0.27 uIU/mL (0.465-4.68)
== END ==
PROVIDERS: PCP Physician Assistant; Visit Provider Nurse Practitioner
DX: I11.9 Hypertensive heart disease without heart failure (principal); R06.09 Other forms of dyspnea; I63.9 Cerebral infarction, unspecified; E11.9 Type 2 diabetes mellitus without complications; R60.9 Edema, unspecified
CPT/HCPCS: 36415; 80048; 80061; 80076; 84439; 84443; 85025; 93270

== ENCOUNTER → 2023-06-02 06:14 | Outpatient (CLI) | payer MEDICARE, SELFPAY ==
--- NOTE | 2023-06-02 06:16 | NM_ITS ---
APPROVED REPORT Exam: Nuclear Stress Test Indication: high bp..high cholerterol..tobacco use..soa..palpitations..fatigue Patient Location: Outpatient Stress Tech: Liliana Vyas NC Tech:Michelle Hwang, ARRT RT(R)(N) Ht: 5 ft 7 in Wt: 180 lbs HR: 55 bpm BP: 150/71 mmHg BSA: 1.93 m2 Rhythm: NSR TID: 1.25 BMI: 28.1 History: high bp..high cholerterol..tobacco use..soa..palpitations..fatigue Procedure: Patient received 0.4 mg of intravenous Lexiscan, resting heart rate 55 bpm, resting blood pressure 148/71 mmHg, with Lexiscan maximum heart rate achieved was 71 bpm which is 85 % of the maximum predicted heart rate and blood pressure was 150/70 mmHg. With Lexiscan, patient denied any complaint of chest pain. Cardiac Stress and Resting SPECT Images: Cardiac Stress and Resting SPECT images were obtained using technetium 99m Myoview 31.3 mCi stress and 10.96 mCi at rest. Resting and stress imaging in both supine and prone positions demonstrate a large sized, moderate, partially reversible perfusion defect in the inferior LV wall from the base and extending distally towards the inferoapical region. There is also a medium sized, mild, fixed perfusion defect in the basal anterior LV wall. There is increased transient ischemic dilatation ratio (TID 1.25), suggestive of possible multivessel disease or balanced ischemia. Gated imaging demonstrates mild reduction in global LV systolic function. There is moderate hypokinesis of the inferior LV wall. LVEF is calculated at 47% Conclusion: Large sized, moderate, partially reversible perfusion defect in the inferior LV wall from the base and extending distally towards the inferoapical region. There is also a medium sized, mild, fixed perfusion defect in the basal anterior LV wall. Increased transient ischemic dilatation ratio (TID 1.25), suggestive of possible multivessel disease or balanced ischemia. Gated imaging demonstrates mild reduction in global LV systolic function. There is moderate hypokinesis of the inferior LV wall. LVEF is calculated at 47% Electronically signed by : Radha Vaughan MD 06/10/2023 01:10:38
--- NOTE | 2023-06-02 09:43 | CA_ITS ---
APPROVED REPORT Exam: Pharmacologic Technologist: Liliana Cruz, Ht: 5 ft 8 in Wt: 181 lbs BSA: 1.96 m2 HR: 53 bpm BP: 148/71 mmHg Rhythm: NSR Medical History Medications: Losartan,,,,, Allopurinol,,,,, Flonase,,,,, ClonAZEPAM,,,,, Albuterol,,,,, RoSUVASTATIN,,,,, LiNZESS,,,,, AZelastine,,,,, Trelegy Ellipta,,,,, Stress Test Details Test: LEXISCAN Reason for pharmacologic stress test: physical limitation. HR Resting HR: 55 bpm Max Heart Rate (APMHR): 146 bpm Max HR Achieved: 71 bpm Target HR (85% APMHR): 124 bpm % of APMHR: 49 Recovery HR: 62 bpm BP Resting BP: 148.0/71.0 mmHg Max BP: 150.0/70.0 mmHg Recovery BP: 150.0/70.0 mmHg ECG Resting ECG: Sinus bradycardia Stress ECG: No significant ST changes Arrhythmia: None Clinical Exercise duration: 04:01 min Highest Stage Achieved: Exercise capacity: 1.0 METs Stress ECG Conclusion Symptoms: Mild SOA & head discomfort. No CP. Arrhythmias/Ectopy: None ST-T Changes: No significant ST changes. Conslusion: Unremarkable Lexiscan stress test. Myoview images reported separately. Test Summary REST . . . . . . . Resting REST 07:04 . . 55 . 148/ 71 . . Stage 1 01:00 . . 63 . . . . Stage 2 01:00 . . 69 . 129/ 64 . . Stage 3 01:00 . . 66 . 130/ 66 . . Stage 4 01:00 . . 64 . 137/ 61 . . Stage 4 01:01 . . 64 . 137/ 61 . Stop exercise at 04:01 RECOVERY 01:00 . . 61 . . . . RECOVERY 02:00 . . 63 . 143/ 70 . . RECOVERY 03:00 . . 62 . 150/ 70 . . RECOVERY 03:20 . . 61 . 150/ 70 . . Electronically signed by : Radha Vaughan MD 06/10/2023 01:06:55
== END ==
PROVIDERS: PCP Physician Assistant; Visit Provider Nurse Practitioner
DX: I11.9 Hypertensive heart disease without heart failure (principal); I25.10 Atherosclerotic heart disease of native coronary artery without angina pectoris; I47.1 Supraventricular tachycardia; I47.20 Ventricular tachycardia, unspecified; J44.9 Chronic obstructive pulmonary disease, unspecified; Q24.5 Malformation of coronary vessels; R06.09 Other forms of dyspnea; R07.89 Other chest pain; Z92.89 Personal history of other medical treatment
CPT/HCPCS: 78452; 93017; A9502; J2785

== ENCOUNTER → 2023-06-15 07:40 | Outpatient (CLI) | payer MEDICARE, SELFPAY ==
--- NOTE | 2023-06-15 07:45 | CA_ITS ---
APPROVED REPORT EXAM: Comprehensive 2D, Doppler, and color-flow Echocardiogram Dry Janitor: Mayuri Swanson RDCS Ht: 5 ft 8 in Wt: 181lbs BSA: 1.96 BP: 132/69 mmHg Indications: CP SOA CAD 2D Dimensions LVOT 1.71 cm (M/F) 1.5-2.5 M-Mode Dimensions RVDd 2.19 cm (0.9-2.6) LA Diam 3.59 cm (1.9-4.0) LVDd 5.24 cm (3.5-5.7) Ao Diam 3.34 cm (2.0-3.7) LVDs 3.12 cm (3.5-5.7) IVSd 0.97 cm (0.6-1.1) PWd 1.00 cm (0.6-1.1) EF (Teich) 70.80% FS 40.50% EDV (Teich) 131.80 mL ESV (Teich) 38.50 mL LV Diastology E Decel Time 210.00 (160-240 msec) E/A Ratio 1.2 MED E' 7.80 (< 7 cm/sec) E'/MED E' Ratio 14.50 (>14) LAT E' 9.40 (<10 cm/sec) E/LAT E' Ratio 12.03 (>14) Mitral Valve MV E Max Marc. 113.00 (40-130 cm/s) MV A Velocity 98.00 (40-130 cm/s) E/A Ratio 1.16 MV Decel. Time 210.00 (160-240 ms) MV PHT 62.00 ms Left Ventricle The left ventricle is normal size. The left ventricular systolic function is normal. The left ventricular ejection fraction is within the normal range. There is increased LV wall thickness. There is normal LV segmental wall motion. The left ventricular diastolic function is normal. LVEF is 60%. Right Ventricle The right ventricle is normal size. The right ventricular systolic function is normal. Atria The left atrium size is normal. The right atrium size is normal. There is no Doppler evidence of interatrial shunt. There is lipomatous hypertrophy of the interatrial septum. Aortic Valve The aortic valve opens well. There is no aortic valvular stenosis. No aortic regurgitation is present. Mitral Valve The mitral valve is normal in structure. No evidence of mitral valve stenosis. Mild mitral regurgitation. Tricuspid Valve The tricuspid valve leaflets are thin and pliable. Trace tricuspid regurgitation. There is insufficient TR jet to estimate RVSP. Pulmonic Valve The pulmonic valve is normal in structure. Mild pulmonic regurgitation. Great Vessels The aortic root is normal in size. The ascending aorta is normal in size. IVC is normal in size and collapses >50% with inspiration. Pericardium There is no pericardial effusion. Other Information Study Quality: Fair Conclusion Normal biventricular systolic function. Mild MR. Electronically signed by : Radha Vaughan MD 06/15/2023 21:22:02
== END ==
PROVIDERS: PCP Physician Assistant; Visit Provider Nurse Practitioner
DX: I11.9 Hypertensive heart disease without heart failure (principal); I25.10 Atherosclerotic heart disease of native coronary artery without angina pectoris; J44.9 Chronic obstructive pulmonary disease, unspecified; Q24.5 Malformation of coronary vessels; R06.09 Other forms of dyspnea; R07.89 Other chest pain; Z92.89 Personal history of other medical treatment; I47.19 Other supraventricular tachycardia
CPT/HCPCS: 93306

== ENCOUNTER → 2023-06-16 14:00 | Outpatient (CLI) | payer MEDICARE, SELFPAY | PROVIDERS: PCP Physician Assistant; Visit Provider Internal Medicine | DX: G47.33 Obstructive sleep apnea (adult) (pediatric) (principal); R40.0 Somnolence; R06.83 Snoring | CPT/HCPCS: G0399 ==

== ENCOUNTER → 2023-06-19 07:37 | Outpatient (CLI) | payer MEDICARE, SELFPAY ==
[2023-06-19 08:40] VITALS: PULSE 60; PULSE 62
== END ==
PROVIDERS: PCP Physician Assistant; Visit Provider Internal Medicine Pulmonary Disease
DX: R06.09 Other forms of dyspnea (principal)
CPT/HCPCS: 94060; 94618; 94640; 94727; 94729

== ENCOUNTER 2023-07-13 08:26 | Day surgery (SDC) | payer MEDICARE, SELFPAY ==
[2023-07-13] VITALS (12 sets, daily range): BP systolic 115–156; BP diastolic 61–80; PULSE 50–62; RESP 17–20; O2SAT 94–98; BMI 28.8
--- NOTE | 2023-07-13 07:09 | IR_ITS ---
APPROVED REPORT Patient Location: Outpatient [place] Maker: OSKAR Thomas RT (R) PROCEDURES Left heart catheterization Left ventriculogram Selective coronary angiogram INDICATION Angina pectoris, Abnormal Myoview Informed consent was obtained prior to the procedure. COMPLICATIONS NONE Estimated Blood Loss: LESS THAN 10 ML TECHNIQUE One percent lidocaine used to anesthetize the right anterior aspect of the wrist. The right radial artery was accessed via the Seldinger technique. A 6 Russian sheath was placed in the right radial artery. 2.5 mg of Verapamil, 800 mcg of nitroglycerin, 1mg Lidocaine and 5000 U Heparin were given through the arterial sheath. The papa catheter was also used to perform left heart catheterization, left ventriculogram and selective coronary angiogram. At the end of the procedure the sheath was removed good hemostasis was achieved using Traclet band, patient was transferred to the postop holding area in stable condition. ANGIOGRAPHIC RESULTS The left main artery Normal The left anterior descending artery Has proximal and mid vessel 10% luminal irregularities The circumflex artery Is a nondominant vessel gives rise to a moderate sized first obtuse marginal artery which has a proximal eccentric 40% stenosis. Distal to the first obtuse marginal artery the circumflex artery has a 40 to 50% concentric stenosis and supplies a small to medium sized second obtuse marginal artery. There is an additional 30% stenosis in the mid second obtuse marginal artery The right coronary artery Is a dominant vessel and has proximal and mid vessel 10 to 20% luminal irregularities The HERR ventriculogram reveals Normal 65% The left ventricular end-diastolic pressure 20 to 25 mmHg IMPRESSION Mild to moderate nonflow limiting coronary disease involving a nondominant circumflex artery as described above Normal ejection fraction Elevated LVEDP consistent with diastolic dysfunction PLAN 1. Risk factor modification 2. Medical management Electronically signed by : Wilber Almeida MD 07/13/2023 12:50:20
[2023-07-13 09:40] LABS: Basophils # 0.1 K/mm3 (0-0.2); Basophils % 1.3 % (0.1-2.0); Eosinophils # 0.5 K/mm3 (0.0-0.4); Eosinophils % 9.7 % (0.1-12.0); Hematocrit 45.4 % (42.0-52.0); Hemoglobin 15.7 g/dL (14.1-18.0); Lymphocytes # 1.5 K/mm3 (0.7-4.5); Mean Corpuscular HGB Conc 34.5 g/dL (31.8-35.4); Mean Corpuscular Volume 89.7 fl (80-94); Mean Platelet Volume 9.9 fl (7.4-10.4); Monocytes # 0.4 K/mm3 (0.1-1.0); Monocytes % 7.1 % (1.7-9.3); Neutrophils # 2.9 K/mm3 (1.8-7.8); Neutrophils % 54.9 % (37.0-80.0); Platelet Count 217 K/mm3 (142-424); Red Blood Count 5.06 M/mm3 (4.60-6.20); Red Cell Distribution Width 13.5 % (11.5-17.5); White Blood Count 5.4 K/mm3 (4.8-10.8)
[2023-07-13 09:58] LABS: Anion Gap 11.1 mEq/L (5-15); Blood Urea Nitrogen 23 mg/dl (9-20); Calcium 9.1 mg/dl (8.4-10.2); Carbon Dioxide 31 mmol/L (22.0-30.0); Chloride 105 mmol/L (98-107); Creatinine Clearance Estimated 56 mL/min (50-200); Estimated Glomerular Filt Rate 50 ml/min (>60); GFR (African American) 60 ML/MIN (>60); Glucose 103 mg/dl (74-100); Potassium 5.1 mmoL/L (3.5-5.1); Sodium 142 mmol/L (136-145)
== END 2023-07-13 15:41 | disposition home or self-care (01) ==
LOC: CATHLAB 08:26
PROVIDERS: PCP Physician Assistant; Visit Provider Internal Medicine
DX: I11.9 Hypertensive heart disease without heart failure (principal); I25.10 Atherosclerotic heart disease of native coronary artery without angina pectoris; I47.20 Ventricular tachycardia, unspecified; J44.9 Chronic obstructive pulmonary disease, unspecified; Q24.5 Malformation of coronary vessels; R06.09 Other forms of dyspnea; R07.89 Other chest pain; Z92.89 Personal history of other medical treatment; Z79.899 Other long term (current) drug therapy
CPT/HCPCS: 80048; 85025; 93458; 99152; C1769; J1644; Q9967

== ENCOUNTER 2024-07-30 10:30 | Outpatient (POV) | payer MEDICARE, SELFPAY | END 2024-07-30 23:59 | disposition home or self-care (01) | LOC: SC 07-31 06:46 | PROVIDERS: Visit Provider Dermatology | DX: Z00.00 Encounter for general adult medical examination without abnormal findings (principal) ==

== ENCOUNTER 2024-09-05 07:01 | Outpatient (CLI) | payer MEDICARE, SELFPAY ==
[2024-09-05 08:27] LABS: Free T4 (Free Thyroxine) 1.35 ng/dl (0.78-2.19)
[2024-09-05 08:41] LABS: Thyroid Stimulating Hormone 0.92 uIU/mL (0.465-4.68)
[2024-09-06 15:24] LABS: Thyroglobulin IMA CHARGE YES; Thyroglobulin Level <1.0 IU/mL (0.0-0.9)
== END 2024-09-05 23:59 | disposition home or self-care (01) ==
LOC: LAB 07:02
PROVIDERS: PCP Physician Assistant; Visit Provider Student in an Organized Health Care Education/Training Program
DX: E03.9 Hypothyroidism, unspecified (principal); Z90.89 Acquired absence of other organs; C73 Malignant neoplasm of thyroid gland
CPT/HCPCS: 84439; 84443; 86800

== ENCOUNTER 2025-01-31 07:59 | Outpatient (CLI) | payer MEDICARE, SELFPAY ==
[2025-01-31 08:45] VITALS: PULSE 60; PULSE 65
[2025-01-31] MEDS: ALBUTEROL 0.083% 2.5 MG/3 ML NEB IH (08:45)
== END 2025-01-31 23:59 | disposition home or self-care (01) ==
LOC: RT 08:00
PROVIDERS: PCP Physician Assistant; Visit Provider Internal Medicine Pulmonary Disease
DX: J44.9 Chronic obstructive pulmonary disease, unspecified (principal)
CPT/HCPCS: 94010; 94618; 94640

== ENCOUNTER 2025-03-05 07:22 | Outpatient (CLI) | payer MEDICARE, SELFPAY ==
--- OUTSIDE RECORDS SUMMARY | 2025-01-22 06:45 | XMS_ITS ---
Author Organization [facility] Address [address] [facility] [address] [place] [phone] Care Team Providers Care Post Office Manager Name Role Phone Valerio Dior Primary Care Provider Ania Richey Unavailable [phone] Allergies Allergen (clinical drug ingredient) Drug/Non Drug [...] MG/0.5ML 0.5 mg Subcutaneous once a week for 30 days 01/16/2025 Active clonazePAM 1 MG 1 tab(s) orally Two times a day for 30 days 01/06/2025 Active Fenofibric Acid 135 MG TAKE ONE CAPSULE BY MOUTH ONCE A DAY Active Linzess 290 mcg TAKE 1 CAPSULE BY [facility] EVERY MORNING ON AN EMPTY STOMACH AT LEAST 30 MINUTES BEFORE BREAKFAST for 30 Active Albuterol Sulfate HFA 108 (90 Base) MCG/ACT 1 puff as needed Inhalation every 4 hrs, prn 05/24/2024 Active Repatha 140 MG/ML 1 mL Subcutaneous fo r 30 day(s) Active Atorvastatin Calcium 40 MG 1 tablet Oral ly Once a day for 90 days Active Levothyroxine Sodium 88 MCG 1 tablet Ora lly Once a day for 90 days 11/15/2024 Active Clotrimazole 1 % 1 application Finisher Machine ally Twice a day 11/14/2024 Active Breztri [...] 01/22/2025 Encounters Encounter Location Date Provider Diagnosis [facility] [facility] [address] [phone] 01/22/2025 Ania Richey Acute URI J06.9 Assessments [...] Notes * PERLA VAUGHNDOB:1950 (74 yo M)Acc No.[id number]:01/22/2025 Progress Notes Patient: PERLA HU Provider: JOSEE Espinal :1950 A ge:74 Y S ex:Male Date:01/22/2025 [address], [place], [id number] Pcp:Valerio Dior Subjective: * Chief Complaints: * [...] Diagno stic Procedure: a lola surgeries , [facility]-kidney stone 08/2017, [facility] - kidney stone 01/02/2021. * [...] beers a day. * Medications: T nona Grimm Aerosphere 160-9-4.8 MCG/ACT Aerosol 2 puffs Inhalation [...] Examination: E NT/Respiratory: General Appearance: N AD. Ears: a uditory canals normal bilaterally, TM's WNL. Nose : turbinates red, congested. Sinuses : tender maxillary sinuses bilaterally. Oral cavity : n o erythema or exudate seen on pharynx. Neck : n o cervical lymphadenopathy. Heart : R RR, normal S1 S2, no murmurs. Lungs: c lear to auscultation bilaterally. Assessment: * [...] p lat 154 100 - 400 * Tommy, Shirlene 01/22/2025 10: 57:02 AM > results reviewed w/ pt in office * Procedure Codes: G 2211 Complex e/[place], [address] CAPILLARY BLOOD DRAW, 48085 CBC WITH AUTO DIFF * Follow Up: p rn * Billing Information: * Visit Code: 43128 Office Visit, Est Pt., Level 3. * Procedure Codes: G2211 Complex e/[place]. [address] CAPILLARY BLOOD DRAW. 28790 CBC WITH AUTO DIFF. * Electronic signature of JOSEE Maria on 03/05/2025 at 07:25 AM EDT Sign off status: Pending * Provider: JOSEE Espinal Date: 0 01/22/2025 Generated for Ivannai ng/Faalang/eTransmitting on: 0 03/05/2025 07:25 AM EDT History and Physical Notes * HPI (History [...]
--- OUTSIDE RECORDS SUMMARY | 2025-01-29 04:50 | XMS_ITS ---
Author Organization [facility] Address [address] [facility] [place] [id number] Care Team Providers Care Body Builder Apprentice Name Role Phone Valerio Dior Primary Care Provider [phone] ShirazAleksandr stephena Unavailable [phone] Results Component Value Reference Range Notes P-Vitamin B12 Reviewed date:01/30/2025 12:48:51 PM Interpretation: Performing Lab: Notes/Report: Test performed by [facility] [address] [place] [address] , [address], [place] [address] Marino Bullock MD, Scarifier Operator CLIA: [id number] Vitamin B12 041 632-1832 pg/mL P-T4 Free (thyroxine) Reviewed date:01/30/2025 12:48:51 PM Interpretation: Performing Lab: Notes/Report: Test performed by [facility] [address] [place] [address] , [address], [place] [address] Marino Bullock MD, Scarifier Operator CLIA: [id number] Thyroxine Free (free T4) 1.47 0.86-1.76 ng/dL P-TSH Reviewed date:01/30/2025 12:48:51 PM Interpretation: Performing Lab: Notes/Report: Test performed by [facility] [address] [place] [address] , [address], [place] [address] Marino Bullock MD, Scarifier Operator CLIA: [id number] TSH 4.15 0.43-5.25 mU/L P-Vitamin D 25-Hydroxy Reviewed date:01/30/2025 12:48:51 PM Interpretation: Performing Lab: Notes/Report: Test performed by [facility] , [address], [place] [address] Marino Bullock MD, Scarifier Operator CLIA: [id number] Vitamin D 25-Hydroxy 47.6 30.0-100.0 ng/mL Interpretation of Vitamin D 25 OH: < 20 ng/mL - Deficiency 20 - 29 ng/mL - Insufficiency 30 - 100 ng/mL - Sufficiency > 100 ng/mL - Super-therapeutic- toxicity may occur above this level. Clinical correlation required. REASON FOR VISIT bloodwork Encounters Encounter Location Date Provider Diagnosis [facility] [address] [place], [place] [id number] 01/29/2025 Ania Richey Vitamin D deficiency E55.9 [...] Treatment No Information Progress Notes * PERLA VAUGHNDOB:1950 (74 yo M)Acc No.[id number]:01/29/2025 Patient: PERLA HU Provider: JOSEE Espinal :1950 A ge:74 Y S ex:Male Date:01/29/2025 Address:[address] [place], [place] [address], [id number] Pcp:Valerio Dior Subjective: * Chief Complaints: * [...] D 25-Hydroxy 47.6 30.0-100.0 - ng/mL * Ania Richey 01/30/2025 1 2:48:44 PM >see TE 2.?Hypothyroidism, [...] AM)* Value Reference Range V itamin B12 217 127-8608 - pg/mL * Ania Richey 01/30/2025 1 2:48:44 PM >see TE * Billing Information: * Visit Code: * Procedure Codes: * Electronic signature of JOSEE Maria on 03/05/2025 at 07:25 AM EDT Sign off status: Pending * Provider: JOSEE Espinal Date: 0 01/29/2025 Generated for Antwan negrete/Eliseo/Clinton on: 0 03/05/2025 07:25 AM EDT
--- OUTSIDE RECORDS SUMMARY | 2025-02-26 06:00 | XMS_ITS ---
Author Organization [facility] Address [address] [facility] [address] [place] [id number] Care Team Providers Care Cpht Name Role Phone Valerio Dior Primary Care Provider Ania Richey Unavailable [phone] Allergies Allergen (clinical drug ingredient) Drug/Non Drug Allergy documented on EMR Reaction Allergy Type Onset Date Status umeclidinium Incruse Ellipta wheezing worse Drug Allergy Active codeine Codeine rash Drug Allergy Active REASON FOR VISIT pain in right side Medications Medication SIG (Take, Route, Frequency, Duration) Notes Start Date End Date Status Fenofibric Acid 135 MG TAKE ONE CAPSULE BY MOUTH ONCE A DAY Active clonazePAM 1 MG 1 tab(s) orally Two times a day for 30 days 01/06/2025 Active Clotrimazole 1 % 1 application Externally Twice a day 11/14/2024 Active Linzess 290 mcg TAKE 1 CAPSULE BY [facility] EVERY MORNING ON AN EMPTY STOMACH AT LEAST 30 MINUTES BEFORE BREAKFAST for 30 Active Albuterol Sulfate HFA 108 (90 Base) MCG/ACT 1 puff as needed Inhalation every 4 hrs, prn 05/24/2024 Active Benzonatate 200 MG 1 capsule [address]ally Thr ee times a day, prn 01/22/2025 Not-Taking Levothyroxine Sodium 88 mcg TAKE ONE TABLET BY MOUTH ONCE A DAY for 30 Active Atorvastatin Calcium 10 mg TAKE ONE TABLET BY MOUTH ONCE A DAY for 30 Active Breztri Aerosphere 160-9-4.8 MCG/ACT 2 puffs Inhalation Twice a day Active Repatha 140 MG/ML 1 mL Subcutaneous fo r 30 day(s) Active Wegovy 0.5 MG/0.5ML 0.5 mg Subcutaneous once a week for 30 days 01/16/2025 Active Social History Tobacco Use: Social History Observation Description Date Details (start date - stop date) Former Smoker NA - NA CURRENT TOBACCO USE: Question Answer Notes Are you a: former smoker quit 1991 Vital Signs Weight 160.8 lbs 02/26/2025 Blood pressure systolic 118 mm Hg 02/27/20 25 Blood pressure diastolic 64 mm Hg 025 Heart Rate 74 /min 02/26/2025 Height 67 in 02/26/2025 BMI 25.18 kg/m2 02/26/2025 Encounters Encounter Location Date Provider Diagnosis [facility] [address] [place] [phone] 02/26/2025 Ania Richey Abdominal mass, unspecified abdominal location R19.00 Assessments Encounter Date Diagnosis (ICD Code) Assessment Notes Treatment Notes Treatment Clinical Notes Section Notes 02/26/2025 Abdominal mass, unspecified abdominal location (ICD-10 - R19.00) Plan Of Treatment Pending Test Test Name Order Date CT Scan : Abd and Pelvis w/ oral & IV co ntrast 02/26/2025 Next Appt Details Follow Up: via phone to repo rt test results, Reason: Progress Notes * PEARL, PERLADOB:1950 (74 yo M)Acc No.[id number]:02/26/2025 Progress Notes Patient: PERLA HU Provider: JOSEE Espinal :1950 A ge:74 Y S ex:Male Date:02/26/2025 Address:[address], [place], [place] Pcp:Valerio Dior Subjective: * Chief Complaints: * [...] Diagno stic Procedure: a lola surgeries , [facility]-kidney stone 08/2017, [facility] - kidney stone 01/02/2021. [...] beers a day. * Medications: T nona Finkangelesbernardo Aerosphere 160-9-4.8 MCG/ACT Aerosol 2 puffs Inhalation [...] G eneral Examination: General Appearance: N AD. Chest: n ormal shape and expansion. Heart: R SR. Lungs: c lear to auscultation. Abdomen: b owel sounds present, soft, mass in the RMQ to RUQ that is ttp under a surgical scar. Assessment: * Assessment: 1. A bdominal mass, unspecified abdominal location - R19.00 (Primary) S pecify :right middle quadrant/right upper quadrant Plan: * Treatment: * Follow Up: v ia phone to report test results * Billing Information: * Visit Code: 92482 Office Visit, Est Pt., Level 3. * Procedure Codes: * Electronic signature of JOSEE Maria on 03/05/2025 at 07:24 AM EDT Sign off status: Pending * Provider: JOSEE Espinal Date: 02/26/2025 Generated for Antwan negrete/Eliseo/Niaranneerajitting on: 03/05/2025 07:24 AM EDT History and Physical Notes * [...]
--- NOTE | 2025-03-05 07:25 | CT_ITS ---
FINAL REPORT TECHNIQUE: Oral and IV contrast enhanced exam This study was performed with techniques to keep radiation doses as low as reasonably achievable, (ALARA). Individualized dose reduction techniques using automated exposure control or adjustment of mA and/or kV according to the patient's size were employed. CLINICAL HISTORY: ABD MASS COMPARISON: 01/02/2021 FINDINGS: CT ABDOMEN PELVIS WITH CONTRAST: Abdomen: Lung bases are clear. The gallbladder is surgically absent. Liver has an unremarkable CT appearance. The spleen, pancreas and adrenal glands are unremarkable. Kidneys show no mass or obstruction. There is minimal hazy density in the mesenteric fat, that may represent mesenteric panniculitis. No bowel obstruction or fluid collection is seen. There is an abdominal aortic aneurysm present with moderate plaque disease, measuring 40 x 39 mm in size, was previously 32 x 31 mm in size. Just proximal to this aneurysm there is a saccular component of 19 mm, was previously 13 mm, which currently appears thrombosed. Pelvis: The appendix is normal in appearance. Pelvic bowel loops are unremarkable. No fluid collection or adenopathy is seen. The bladder is unremarkable in appearance. There are surgical changes of a prior right abdominal hernia repair. IMPRESSION: 1. No acute abnormalities to account for patient's symptoms. 2. Resolved right hydronephrosis since the prior exam of 2020. 3. There has been enlargement of the abdominal aortic aneurysm since the prior exam as described above. Reviewed, Interpreted and Dictated by Ludy Rivera MD Transcribed by Cassie Gonzáles Authenticated and [facility]
--- OUTSIDE RECORDS SUMMARY | 2025-03-05 07:25 | XMS_ITS | Patient Health Record ---
Author Organization [facility] Address [address] [facility] [address] [place] [id number] Care Team Providers Care Pediatric Assistant Name Role Phone Valerio Dior Primary Care Provider ShirazAleksandr stephena Unavailable [phone] Allergies Allergen (clinical drug ingredient) Drug/Non Drug Allergy documented on EMR Reaction Allergy Type Onset Date Status umeclidinium Incruse Ellipta wheezing worse Drug Allergy Active codeine Codeine rash Drug Allergy Active Results Component Value Reference Range Notes P-Vitamin D 25-Hydroxy Reviewed date:01/30/2025 12:48:51 PM Interpretation: Performing Lab: Notes/Report: CLIA: [id number] Marino Bullock MD, Satellite [employer]airer [facility] , [address], [place] [address] Test performed by [facility] Vitamin D 25-Hydroxy 47.6 30.0-100.0 ng/mL Interpretation of Vitamin D 25 OH: < 20 ng/mL - Deficiency 20 - 29 ng/mL - Insufficiency 30 - 100 ng/mL - Sufficiency > 100 ng/mL - Super-therapeutic- toxicity may occur above this level. Clinical correlation required. CBC Fingerstick (in house) Reviewed date:05/24/2024 03:01:47 [...] - 38 plat 208 100 - 400 P-Vitamin B12 Reviewed date:04/26/2024 09:03:48 AM Interpretation: Performing Lab: Notes/Report: CLIA: [id number] Marino Bullock MD, Satellite D[employer]airer [address] [place] [address] [place] [address] Test performed by [facility] Vitamin B12 153 169-0176 pg/mL P-Comprehensive Metabolic Pa sakshi (CMP) Reviewed date:04/26/2024 09:03:48 AM Interpretation: Performing Lab: Notes/Report: Test performed by [facility] [address] [place] [address] [address], [place] [address] Marino Bullock MD, Satellite Dish Repairer CLIA: [id number] Sodium 137 135-145 mmol/L Potassium 4.6 3.5-5.3 mmol/L Chloride 103 97-108 mmol/L CO2 26 22-32 mmol/L Glucose 108 65-99 mg/dL BUN 22 8-23 mg/dL Creatinine 1.24 0.70-1.30 mg/dL Calcium 9.7 8.6-10.4 mg/dL eGFR by Creatinine 60 >59 mL/min/1.73m2 Protein 6.5 6.0-8.3 g/dL Albumin 4.3 3.5-5.3 g/dL Alkaline Phosphatase 82 40-129 IU/L ALT (SGPT) 30 <5-55 IU/L AST (SGOT) 22 <5-46 IU/L Bilirubin, Total 0.8 <0.2-1.2 mg/dL A/G Ratio 2.0 1.1-2.5 P-T4 Free (thyroxine) Reviewed date:04/26/2024 09:03:48 AM Interpretation: Performing Lab: Notes/Report: Test performed by [facility] [address] [place] [address] [address], [place] [address] Marino Bullock MD, Satellite Dish Repairer CLIA: [id number] Thyroxine Free (free T4) 1.46 0.86-1.76 ng/dL P-Lipid Panel Reviewed date:04/26/2024 09:03:48 AM Interpretation: Performing Lab: Notes/Report: Test performed by [facility] [address] [facility] [address], [place] [address] Mraino Bullock MD, Satellite Dish Repairer [place]: [id number] Cholesterol 243 <200 mg/dL Triglycerides 161 <150 mg/dL HDL Cholesterol 34 >39 mg/dL Cholesterol / HDL Ratio 7.15 0.00-4.99 Ratio Non-HDL Cholesterol 209 <130 mg/dL LDL Cholesterol (Calculation) 177 <130 mg/dL LDL Cholesterol Levels* Less than 100 mg/dL Optimal 100 to 129 mg/dL Near Optimal/ Above Optimal 130 to 159 mg/dL Borderline High 160 to 189 mg/dL High 190 mg/dL and above Very High * Categories as recommended by the 2004 ATPIII guidelines LDL/HDL Ratio 5.2 <3.3 Ratio LDL Cholesterol Patient History Test Date: 09/14/2023 LDL Results: 109 Units: mg/dL % Change: - Test Date: 04/25/2024 LDL Results: 177 Units: mg/dL % Change: +62% P-TSH Reviewed date:04/26/2024 09:03:48 AM Interpretation: Performing Lab: Notes/Report: Test performed by [facility] [address] , [place] [address] Marino Bullock MD, Satellite Dish Repairer CLIA: [id number] TSH 0.38 0.43-5.25 mU/L P-TSH Reviewed date:01/30/2025 12:48:51 PM Interpretation: Performing Lab: Notes/Report: Test performed by [facility] [address] , [facility] [place] [address] Marino Bullock MD, Satellite Dish Repairer CLIA: [id number] TSH 4.15 0.43-5.25 mU/L P-T4 Free (thyroxine) Reviewed date:01/30/2025 12:48:51 PM Interpretation: Performing Lab: Notes/Report: Test performed by [facility] [address] , [facility], [place] [address] Marino Bullock MD, Satellite Dish Repairer CLIA: [id number] Thyroxine Free (free T4) 1.47 0.86-1.76 ng/dL P-Vitamin B12 Reviewed date:01/30/2025 12:48:51 PM Interpretation: Performing Lab: Notes/Report: Test performed by [facility] [address] , [place] [address] Marino Bullock MD, Satellite Dish Repairer CLIA: [id number] Vitamin B12 434 233-5894 pg/mL CBC Fingerstick (in house) Reviewed date:01/23/2025 03:29:18 [...] - 38 plat 154 100 - 400 CBC Venipuncture (in house) Reviewed date:11/14/2024 01:58:44 [...] Interpretation:Normal Performing Lab: Notes/Report: Test performed by [facility] [address] [place] [address] , [address], [place] [address] Marino Bullock MD, Satellite Dish Repairer CLIA: [id number] Vitamin B12 276 086-1469 pg/mL P-Comprehensive Metabolic Pa sakshi (CMP) Reviewed date:11/15/2024 03:54:56 PM Interpretation:Normal Performing Lab: Notes/Report: Test performed by [facility] [address] [place] [address] , [address], [place] [address] Marnio Bullock MD, Satellite Dish Repairer CLIA: [id number] Sodium 143 135-145 mmol/L Potassium 4.4 3.5-5.3 [...] Interpretation:2.11 Performing Lab: Notes/Report: Test performed by [facility] [address] [place] [address] [address], [place] [address] Marino Bullock MD, Satellite Dish Repairer CLIA: [id number] Thyroxine Free (free T4) 2.11 0.86-1.76 ng/dL P-Lipid Panel Reviewed date:11/15/2024 03:54:56 PM Interpretation:hdl 35 Performing Lab: Notes/Report: Test performed by [facility] [address] [place] [address] [address], [place] [address] Marino Bullock MD, Satellite Dish Repairer CLIA: [id number] Cholesterol 73 <200 mg/dL Triglycerides 91 <150 [...] Results: 20 Units: mg/dL % Change: -88% P-PSA Reviewed date:11/15/2024 03:54:56 PM Interpretation:Normal Performing Lab: Notes/Report: Test performed by [facility] [address] [place], [place] [address] [place] , [address], [place] [address] Marino Bullock MD, Satellite Dish Repairer CLIA: [id number] PSA 2.04 <4.00 ng/mL Please note this is an ultrasensitive PSA assay with a lower limit of detection of 0.014 ng/mL. This test is performed by the [employer] ECLIA methodology. Values obtained with different assay methods or kits cannot be directly compared. P-TSH Reviewed date:11/15/2024 03:54:56 PM Interpretation:0.25 Performing Lab: Notes/Report: Test performed by [facility] [address] [place], [place] [address] [place] , [address], [place] [address] Marino Bullock MD, Satellite Dish Repairer CLIA: [id number] TSH 0.25 0.43-5.25 mU/L P-Uric Acid Reviewed date:11/15/2024 03:54:56 PM Interpretation:Normal Performing Lab: Notes/Report: Test performed by [facility] [address] [place], [place] [address] [place] , [address], [place] [address] Marino Bullock MD, Satellite Dish Repairer CLIA: [id number] Uric Acid 5.7 3.4-8.0 mg/dL P-Vitamin D 25-Hydroxy Reviewed date:11/15/2024 03:54:56 PM Interpretation:28.6 Performing Lab: Notes/Report: Test performed by [facility] [address], [place] [address] Marino Bullock MD, Satellite Dish Repairer CLIA: [id number] Vitamin D 25-Hydroxy 28.6 30.0-100.0 ng/mL Interpretation of Vitamin D 25 OH: < 20 ng/mL - Deficiency 20 - 29 ng/mL - Insufficiency 30 - 100 ng/mL - Sufficiency > 100 ng/mL - Super-therapeutic- toxicity may occur above this level. Clinical correlation required. P-Magnesium Reviewed date:11/15/2024 03:54:56 PM Interpretation:Normal Performing Lab: Notes/Report: Test performed by [facility] [address] [place] [address] [address], [place] [address] Marino Bullock MD, Satellite Dish Repairer CLIA: [id number] Magnesium 1.9 1.6-2.4 mg/dL CBC Fingerstick (in house) Reviewed date:12/27/2024 04:14:21 [...] - 38 plat 190 100 - 400 Reason For Referral Diagnosis 1 Perforation of left tympanic membrane (H72.92) Referral Organization [facility] Referring Provider First Name Ania Referring Provider Last Name Kaiden Referring Provider Speciality Physician [employer] Referred Provider ENT, . Referred Provider Specialty ENT General Notes Ania Richey 04/25 9:25:46 AM > Needs to see ENT at [facility] (Dr. Guzman), Debbi Tran 04/29/2024 10:06:42 AM > REFERRAL FAXED Referral Priority Routine Diagnosis 1 Moderate persistent asthma without complication (J45.40) Referral Organization [facility] Referring Provider First Name Ania Referring Provider Last Name Kaiden Referring Provider Speciality Physician Sales [employer] Referred Provider Pulmonology, . Referred Provider Specialty Pulmonary Di seases General Notes Ania Richey 04/25 1:15:13 PM > Pt would like an appt with Esvin Kamara in [place]. Dianne Trania 04/29/2024 2:08:23 PM > Dr is no longer in [place]---no traffic monitor specialist in [place]--left message for pt-- informed. She will call back when she gets another doctors name, Poornima Whatley 05/10/2024 9:57:18 AM > spoke with patient; he has an appt with Dr. 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 Referred Provider Specialty Dermatology General Notes Ania Richey 05/24 10:28:17 AM > [facility] 05/24/2024 11:19:34 AM > [facility] 07/30/2024 at 10:40am; patient informed Referral Priority Routine Diagnosis 1 Hoarse (R49.0) [facility] Referring Provider First Name Ania Referring Provider Last Name Kaidne Referring Provider Speciality Physician Sales Executive [employer] Referred Provider ENT, . Referred Provider Specialty ENT General Notes Ania Richey 07/12 10:33:06 AM > Needs an appt with ENT.Phylicia Brynn 07/25/2024 10:35:27 AM > faxed referral to [facility] Phylicia DUARTE Brynn 07/26/2024 9:56:06 AM > referral received; patient scheduled Referral Priority Routine Medications Medication SIG (Take, Route, Frequency, Duration) Notes Start Date End Date Status Fenofibric Acid 135 MG TAKE ONE CAPSULE BY MOUTH ONCE A DAY Active clonazePAM 1 MG 1 tab(s) orally Two times a day for 30 days 01/06/2025 Active Wegovy 0.5 MG/0.5ML 0.5 mg Subcutaneous once a week for 30 days 01/16/2025 Active Benzonatate 200 MG [address] ee times a day, prn 01/22/2025 Not-Taking Clotrimazole 1 % 1 application Externally Twice a day 11/14/2024 Active Linzess 290 mcg TAKE 1 CAPSULE BY [facility] EVERY MORNING ON AN EMPTY STOMACH AT LEAST 30 MINUTES BEFORE BREAKFAST for 30 Active Albuterol Sulfate HFA 108 (90 Base) MCG/ACT 1 puff as needed Inhalation every 4 hrs, prn 05/24/2024 Active Levothyroxine Sodium 88 mcg TAKE ONE TABLET BY MOUTH ONCE A DAY for 30 Active Atorvastatin Calcium 10 mg TAKE ONE TABLET BY MOUTH ONCE A DAY for 30 Active Breztri Aerosphere 160-9-4.8 MCG/ACT 2 puffs Inhalation Twice a day Active Repatha 140 MG/ML 1 mL Subcutaneous fo r 30 day(s) Active Immunizations Vaccine Route Administration Date Status Comme nts xFluzone High Dose-private (65yr&older) Unknown 04/19/2017 Administered Prevnar (PCV13) IM Intramuscular 06/03/2016 Administered PNEUMOVAX 23 VACCINE IM Intramuscular 06/08/2018 Administe red Hepatitis A (adult) Unknown 08/25/2018 Administered H1N1 flu vaccine IM Intramuscular 08/10/2009 Administered Fluzone PF Quad (6-35 months) Unknown 05/25/2022 Administered Fluzone PF Quad (6-35 months) Unknown 05/22/2023 Administered Fluzone High Dose (65yr and older) IM Intramuscular 06/03/2016 Administered Fluzone High Dose (65yr and older) Unknown 04/19/2017 Administered Fluzone High Dose (65yr and older) IM Intramuscular 05/25/2018 Administered Fluzone High Dose (65yr and older) IM Intramuscular 05/22/2019 Administered Fluzone High Dose (65yr and older) Unknown 05/25/2020 Administered Fluzone High Dose (65yr and older) IM Intramuscular 06/08/2021 Administered COVID 19 Pfizer Unknown 06/07/2021 Administered Social History Tobacco Use: Social History Observation Description Date Details (start date - stop date) Former Smoker NA - NA CURRENT TOBACCO USE: Question Answer Notes Are you a: former smoker quit 1991 Problems Problem Type SNOMED Code ICD Code Onset Dates Problem Status W/U Status Risk Notes Problem 009643897 Insomnia (G47.00) Active confirmed Problem 65356816 Vitamin D defici ency (E55.9) Active confirmed Problem 44615896 COPD (chronic obstructive pulmonary disease) (J44.9) Active confirmed Problem 78854637 Essential hypert ension (I10) Active confirmed Problem Asthmatic bronchitis (390059330) Asthmatic bronchitis (J45.909) Active confirmed Problem 008193394 Hypertriglycerid emia (E78.1) Active confirmed Problem 60036391 Anxiety (F41.9) Active confirmed Problem 99594423 Hyperuricemia (E79.0) Active confirmed Problem 540671725 COPD exacerbatio n (J44.1) Active confirmed Problem 251501335 BPH (benign pros tatic hyperplasia) (N40.0) Active confirmed Problem 1181186 Primary insomnia (F51.01) Active confirmed Problem 416141065526827 Primary osteoarthritis, right hand (M19.041) Active confirmed Problem 121376329370750 Primary osteoarthritis, left hand (M19.042) Active confirmed Problem 876802284 Thyroid nodule (E04.1) Active confirm ed Problem 6253449 Urinary hesitanc y (R39.11) Active confirmed Problem 23667436 Other chronic pa in (G89.29) Active confirmed Problem 702732690 Moderate persist ent asthma without complication (J45.40) Active confirmed Problem 981984381 Acquired hypothyroidism (E03.9) Active confirmed Problem 42228999 Peripheral polyneuropathy (G62.9) Active confirmed Problem 42564030 Chronic obstruct brittney pulmonary disease, unspecified COPD type (J44.9) Active confirmed Problem 208580000 Gastroesophageal reflux disease, esophagitis presence not specified (K21.9) Active confirmed Problem 565506456 Moderate persist ent asthma with acute exacerbation (J45.41) Active confirmed Problem 004161786 Primary osteoart hritis of left knee (M17.12) Active confirmed Problem 27383450 Dysphagia, unspe cified type (R13.10) Active confirmed Problem 161133985292 Excessive daytim e sleepiness (G47.19) Active confirmed Problem 489581940 Dyslipidemia (E78.5) Active confirmed Problem 4964639152178 History of tobac co use disorder (Z87.891) Active confirmed Problem 62173638 Hypothyroidism, 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) Active confirmed Problem 047056020 Irritable bowel syndrome with constipation (K58.1) Active confirmed Problem 851492564 Benign prostatic hyperplasia with lower urinary tract symptoms (N40.1) Active confirmed Problem 547714215 History of thyro id cancer (Z85.850) Active confirmed Problem 046123005 Status post part ial thyroidectomy (E89.0) Active confirmed Problem 50212800 Age-related ramo ract of both eyes, unspecified age-related cataract type (H25.9) Active confirmed Problem 95093626 Chronic non-seas onal allergic rhinitis, unspecified trigger (J30.89) Active confirmed Problem Overweight (BMI 25.0-29.9) (E66.3) Active confirmed Problem 660310175 Seasonal allergi c rhinitis, unspecified trigger (J30.2) Active confirmed Problem 69744975 Allergic rhiniti s, unspecified seasonality, unspecified trigger (J30.9) Active confirmed Problem 11499476 Primary hyperten tiffany (I10) Active confirmed Problem 62895530 Coronary artery disease, unspecified vessel or lesion type, unspecified whether angina present, unspecified whether [place] or transplanted heart (I25.10) Active confirmed Problem 050384718 COPD, mild (J44.9) Active confirmed Vital Signs Heart Rate 74 /min 02/26/2025 Blood pressure diastolic 64 mm Hg 02/26/2025 Height 67 in 02/26/2025 Blood pressure systolic 118 mm Hg 02/26/2025 Weight 160.8 lbs 02/26/2025 BMI 25.18 kg/m2 02/26/2025 Encounters Encounter Location Date Provider Diagnosis [facility] [address] [place] [id number] 04/25/2024 Ania Richey COPD, mild J44.9 ; Moderate persistent asthma without complication J45.40 ; Coronary artery disease, unspecified vessel or lesion type, unspecified whether angina present, unspecified whether [place] or transplanted heart I25.10 ; Overweight (BMI 25.0-29.9) E66.3 ; Essential hypertension I10 ; Seasonal allergic rhinitis, unspecified trigger J30.2 ; Perforation of left tympanic membrane H72.92 ; Renal insufficiency N28.9 ; Dyslipidemia E78.5 ; Acquired hypothyroidism E03.9 ; Hyperuricemia E79.0 and Vitamin B12 deficiency E53.8 [facility] [address] [facility] [address] [place], [place] [id number] 05/24/2024 Ania Richey Neoplasm of [facility] n behavior D48.9 ; Acute URI J06.9 ; COPD (chronic obstructive pulmonary disease) J44.9 and Coronary artery disease, unspecified vessel or lesion type, unspecified whether angina present, unspecified whether [place] or transplanted heart I25.10 [facility] [address] [place], [place] [id number] 06/27/2024 Ania Richey Coronary artery dise ase, unspecified vessel or lesion type, unspecified whether angina present, unspecified whether [place] or transplanted heart I25.10 ; Overweight (BMI 25.0-29.9) E66.3 ; Acute otitis media, left H66.92 and Acute URI J06.9 [facility] [address] [place], [place] [id number] 07/25/2024 Ania Richey Coronary artery dise ase, unspecified vessel or lesion type, unspecified whether angina present, unspecified whether [place] or transplanted heart I25.10 ; Hoarse R49.0 and Seasonal allergic rhinitis, unspecified trigger J30.2 [facility] [address] [place], [place] [id number] 11/14/2024 Ania Richey Acquired hypothyroid ism E03.9 ; Dyslipidemia E78.5 ; Essential hypertension I10 ; Hyperuricemia E79.0 ; Chronic obstructive pulmonary disease, unspecified COPD type J44.9 ; Coronary artery disease, unspecified vessel or lesion type, unspecified whether angina present, unspecified whether [place] or transplanted heart I25.10 ; Irritable bowel syndrome with constipation K58.1 ; BPH (benign prostatic hyperplasia) N40.0 ; Vitamin B12 deficiency E53.8 ; Vitamin D deficiency E55.9 ; Muscle cramps R25.2 ; Rash R21 and Other fatigue R53.83 [facility] [address] [place], [place] [id number] 12/27/2024 Ania Richey Acute URI J06.9 ; BM I 25.0-25.9,adult Z68.25 and Anxiety F41.9 [facility] [address] [place], [place] [id number] 01/22/2025 Ania Richey Acute URI J06.9 [facility] [address] [place], [place] [id number] 01/29/2025 Ania Kaiden Vitamin D deficiency E55.9 ; Hypothyroidism, postsurgical E89.0 ; History of thyroid cancer Z85.850 and Vitamin B12 deficiency E53.8 [facility] [address] [place], [place] [id number] 02/26/2025 Ania Weldonzafar Abdominal mass, unspecified abdominal location R19.00 [facility] [address] [place], [place] [id number] 03/06/2024 Ania Richey [facility] [address] [place], [place] [id number] 04/26/2024 Ania Richey [facility] [address] [place] [id number] 04/30/2024 R Ray Barby [facility] [address] [place], [place] [id number] 05/01/2024 Ania Richey [facility] [address] [place], [place] [id number] 05/27/2024 R Ray Barby Anxiety F41.9 [facility] [address] [place], [place] [id number] 08/14/2024 R Ray Barby Coronary artery dise ase, unspecified vessel or lesion type, unspecified whether angina present, unspecified whether [place] or transplanted heart I25.10 [facility] [address] [place], [place] [id number] 08/19/2024 R Ray Barby Anxiety F41.9 [facility] [address] [place], [place] [id number] 09/13/2024 R Ray Barby Coronary artery dise ase, unspecified vessel or lesion type, unspecified whether angina present, unspecified whether [place] or transplanted heart I25.10 [facility] [address] [place], [place] [id number] 10/14/2024 R Ray Barby [facility] [address] [place] [id number] 10/23/2024 R Ray Barby [facility] [address] [place], [place] [id number] 11/15/2024 Ania Richey [facility] [address] [place], [place] [id number] 12/18/2024 Ania Weldondy [facility] [address] [place] [id number] 12/19/2024 R Ray Barby [facility] [address] [place], [place] [id number] 01/06/2025 R Ray Barby Anxiety F41.9 [facility] [address] [place], [place] [id number] 01/16/2025 R Ray Barby [facility] [address] [place], [place] [id number] 01/30/2025 Ania Richey Assessments Encounter Date Diagnosis (ICD Code) Assessment Notes Treatment Notes Treatment Clinical Notes Section Notes 07/25/2024 Coronary artery disease, unspecified vessel or lesion type, unspecified whether angina present, unspecified whether [place] or transplanted heart (ICD-10 - I25.10) 04/25/2024 Moderate persistent asthma without complication (ICD-10 - J45.40) 04/25/2024 COPD, mild (ICD-10 - J44.9) 02/26/2025 Abdominal mass, unspecified abdominal location (ICD-10 - R19.00) 01/22/2025 Acute URI (ICD-10 - J06.9) 01/06/2025 Anxiety (ICD-10 - F41.9) 11/14/2024 Acquired hypothyroidism (ICD-10 - E03.9) 11/14/2024 Dyslipidemia (ICD-10 - E78.5) 09/13/2024 Coronary artery disease, unspecified vessel or lesion type, unspecified whether angina present, unspecified whether [place] or transplanted heart (ICD-10 - I25.10) 08/19/2024 Anxiety (ICD-10 - F41.9) 08/14/2024 Coronary artery disease, unspecified vessel or lesion type, unspecified whether angina present, unspecified whether cold [place] or transplanted heart (ICD-10 - I25.10) 07/25/2024 Hoarse (ICD-10 - R49.0) 06/27/2024 Overweight (BMI 25.0-29.9) (ICD-10 - E66.3) 06/27/2024 Coronary artery disease, unspecified vessel or lesion type, unspecified whether angina present, unspecified whether cold [place] or transplanted heart (ICD-10 - I25.10) 05/27/2024 Anxiety (ICD-10 - F41.9) 05/24/2024 Acute URI (ICD-10 - J06.9) Patient is feeling better. He does not need any cough medication. 05/24/2024 Neoplasm of uncertain behavior (ICD-10 - D48.9) 01/29/2025 Vitamin D deficiency (ICD-10 - E55.9) 12/27/2024 Acute URI (ICD-10 - J06.9) 12/27/2024 BMI 25.0-25.9,adult (ICD-10 - Z68.25) 01/29/2025 Hypothyroidism, postsurgical (ICD-10 - E89.0) 12/27/2024 Anxiety (ICD-10 - F41.9) 05/24/2024 COPD (chronic obstructive pulmonary disease) (ICD-10 - J44.9) 07/25/2024 Seasonal allergic rhinitis, unspecified trigger (ICD-10 - J30.2) 11/14/2024 Essential hypertension (ICD-10 - I10) 04/25/2024 Coronary artery disease, unspecified vessel or lesion type, unspecified whether angina present, unspecified whether cold [place] or transplanted heart (ICD-10 - I25.10) 06/27/2024 Acute otitis media, left (ICD-10 - H66.92) 06/27/2024 Acute URI (ICD-10 - J06.9) 04/25/2024 Overweight (BMI 25.0-29.9) (ICD-10 - E66.3) 11/14/2024 Hyperuricemia (ICD-10 - E79.0) 05/24/2024 Coronary artery disease, unspecified vessel or lesion type, unspecified whether angina present, unspecified whether [place] or transplanted heart (ICD-10 - I25.10) Will increase dose. 01/29/2025 History of thyroid cancer (ICD-10 - Z85.850) 01/29/2025 Vitamin B12 deficiency (ICD-10 - E53.8) 11/14/2024 Chronic obstructive pulmonary disease, unspecified COPD type (ICD-10 - J44.9) 04/25/2024 Essential hypertension (ICD-10 - I10) 04/25/2024 Seasonal allergic rhinitis, unspecified trigger (ICD-10 - J30.2) 11/14/2024 Coronary artery disease, unspecified vessel or lesion type, unspecified whether angina present, unspecified whether [place] or transplanted heart (ICD-10 - I25.10) 11/14/2024 Irritable bowel syndrome with constipation (ICD-10 - K58.1) 04/25/2024 Perforation of left tympanic membrane (ICD-10 - H72.92) 04/25/2024 Renal insufficiency (ICD-10 - N28.9) 11/14/2024 BPH (benign prostatic hyperplasia) (ICD-10 - N40.0) 11/14/2024 Vitamin B12 deficiency (ICD-10 - E53.8) 04/25/2024 Dyslipidemia (ICD-10 - E78.5) 04/25/2024 Acquired hypothyroidism (ICD-10 - E03.9) 11/14/2024 Vitamin D deficiency (ICD-10 - E55.9) 11/14/2024 Muscle cramps (ICD-10 - R25.2) 04/25/2024 Hyperuricemia (ICD-10 - E79.0) 11/14/2024 Rash (ICD-10 - R21) 04/25/2024 Vitamin B12 deficiency (ICD-10 - E53.8) 11/14/2024 Other fatigue (ICD-10 - R53.83) Patient is not able to eat much on the wegovy. He has backed the dose down but still has no appetite and feels fatigued all the time. Will stop it and see if this improves. Plan Of Treatment Pending Test Test Name Order Date CT Scan : Abd and Pelvis w/ oral & IV co ntrast 02/26/2025 Insurance Providers Payer Name Payer Address Payer Phone Subscriber Number Group Number Insured Name Patient Relationship to Insured Coverage Start Date Coverage End Date [employer] (MEDICAR E) [address] [address] [place] [phone] [id number] PEARLPERLA Daugherty Self - patient is the insured Medications Administered Medication Instructions Date of Administration Dosage Notes Depo- Medrol 40 mg/ml 01/31/2017 1 mL Depo- Medrol 40 mg/ml 03/29/2018 1.5 mL Depo- Medrol 40 mg/ml 03/16/2021 1.5 mL Depo- Medrol 40 mg/ml 03/29/2022 1 mL Depo- Medrol 40 mg/ml 07/29/2022 1.5 mL Medical (General) History Medical History History ICD Code Hypothyroidism Hyperlipidemia COPD Asthma Allergic Rhinitis Oseoarthritis - knee Hiatal hernia Diverticulosis with a history of diverti culitis irritable bowel syndrome with constipati on insomnia peptic ulcer disease - gall bladder disease - Prostatitis BPH 50 pack year smoking history, quit in Hx of adenomatous colon polyps Neuropathy in feet low back pain Degenerative Disc Disease, Lumbar spine, MRI 2015 Hepatic flexure syndrome (per Dr. Leija s) Kidney stones Surgical History Surgery Date(Month/Year) Tonsillectomy 1969 Cholecystectomy 1990 LT Knee Partial Replacement 1999 RT Knee Total Replacement 2006 Sinus 2010 Abdominal wall hernia repair C-scope - Dr. Leggett 2011 left knee replacement 07/2017 Heart Cath Apr 2018 C-scope - Dr. Marinelli/ polyps 10/2016 Urolift - Dr. Brown 08/2021 Heart Cath - Dr. Almeida 07/13/2023 Hospitalization History Reason Date(Month/Year) [facility] ER - kidney stone 01/02/2021 [facility]-kidney stone 08/2017 above surgeries
[2025-03-05 07:52] LABS: Blood Urea Nitrogen 21 mg/dl (9-20); Estimated Glomerular Filt Rate 59 ml/min (>60); GFR (African American) 71 ML/MIN (>60)
[2025-03-05] MEDS: IOPAMIDOL-370 (76%);100ML BOTTLE 75 ML IV (08:24)
[2025-03-05] MEDS: SODIUM CHLORIDE 0.9% 10ML SYR (RAD ONLY) 10 ML IV (08:24)
[2025-03-05] MEDS: BARIUM SULFATE(READI-CAT2);450ML BOTTLE 450 ML PO (08:24)
== END 2025-03-05 23:59 | disposition home or self-care (01) ==
LOC: RAD 07:22
PROVIDERS: PCP Physician Assistant; Visit Provider Physician Assistant
DX: I71.40 Abdominal aortic aneurysm, without rupture, unspecified (principal); R19.00 Intra-abdominal and pelvic swelling, mass and lump, unspecified site
CPT/HCPCS: 36415; 74177; 82565; 84520; Q9967

== ENCOUNTER 2025-07-02 06:55 | Day surgery (SDC) | payer MEDICARE, SELFPAY ==
[2025-06-27 14:18] VITALS: BMI 25.0
--- NOTE | 2025-06-30 07:16 | EXP.HP ---
History of Present Illness *Admission Date: 07/02/25 *History of present illness: Mr. Vaughn is a 74-year-old gentleman who is here for diagnostic EGD and colonoscopy. He has struggled with obstipation/incomplete defecation and outlet dysfunction constipation. He is on Linzess in the mornings and prune juice in the evening. He does state that MiraLAX no longer works. He has no solid bowel movements and they are completely loose and sometimes watery. He will sometimes have very little volume with incomplete defecation and excessive wiping. Sometimes he will have a little bit more volume. He primarily reports right lower quadrant abdominal pain and swelling with generalized bloating. He reports very little gassiness. He reports no rectal bleeding or weight loss. He did have a colonoscopy in January 2023 (Peter Duran MD). The report is fairly scant other than sigmoid diverticulosis and the terminal ileum was not visualized. The patient did have a CT scan of the abdomen and pelvis on March 05, 2025. He did have resolved right-sided hydronephrosis. There was also an abdominal aortic aneurysm measuring 40 x 39 mm in size (and was previously 32 x 31 mm from 2020). There was also increased fecal burden with excessive stool/gas in the right colon. There is no colonic distention. The patient also reports some dysphagia and food getting hung up. [facility] Disclaimer: The information contained in this section may have been updated after the patient was seen, as this information can be updated by other users. Medical History Hoarseness Impacted cerumen, bilateral Perforated left tympanic membrane on examination Allergic rhinitis Dyspnea on exertion History of COPD History of smoking 30 or more pack years Impacted cerumen, left ear Abnormal PET scan of colon Encounter for pre-operative cardiovascular clearance Coronary artery disease [place] (hard of hearing) Kidney stone COPD (chronic obstructive pulmonary disease) Asthma Irritable bowel syndrome (IBS) History of gastroesophageal reflux (GERD) History of diverticulitis Hypothyroid History of cataract Allergies Hyperlipidemia Hypertension Thyroid Nodule Myocardial bridge HHD (hypertensive heart disease) CAD (coronary artery disease) Surgical History History of placement of ear tubes History of tonsillectomy and adenoidectomy History of cardiac cath Status post thyroidectomy Status post thyroidectomy Hx of cholecystectomy History of prostate surgery Hx of cataract surgery History of hernia surgery Hx of sinus surgery History of partial knee replacement History of total right knee replacement History of total left knee replacement Family History Mother Thyroid cancer Father Leukemia Other Family history of stroke Social History Smoking Status: Former smoker second hand exposure: No alcohol intake: current alcohol intake frequency: a few times a week substance use type: denies use current occupational status: retired Travel in the last 8 weeks?: None household members: spouse housing: house marital status: education level: high school current occupational exposures/hazards: No caffeine: Yes special ralf needs: No agree to transfusion: No do you feel safe at home: Yes victim of physical abuse: No victim of emotional abuse: No victim of sexual abuse: No would you like helpful sources: No Have you lived/traveled outside US in past 30 days?: No Contact w/someone who lives/traveled outside US past 30 days?: No Exposure to someone with infectious disease in past 14 days?: No Do you have a fever (greater than 100.4 F or 38 C)?: No Have you tested positive for COVID-19?: No Exposed to someone with COVID-19 in past 14 days?: No Do you have a sore throat?: No Do you have a cough?: No Do you have any weakness?: No Are you experiencing any nausea/vomitting?: No Do you have any diarrhea?: No Are you experiencing any unusual bleeding?: No Do you have any muscle aches/pain?: No Do you have any abdominal pain?: No Are you experiencing loss of taste or smell?: No Other Medical History Have you received the Flu Vaccine for this season: No Have you received the Pneumonia Vaccine: Yes Review of Systems Review of Systems Review of systems (narrative): Negative *Cardiovascular Comments: Negative *Gastrointestinal Comments: Negative *Genitourinary Comments: Negative *Musculoskeletal Comments: Negative *Neurologic Comments: Negative Meds Home Medications and Allergies Home Medications ?Medication ?Instructions ?Recorded ?Confirmed ?Type clonazepam 1 mg tablet 1 mg PO BID Anxiety 10/03/17 07/02/25 History linaclotide 290 mcg capsule 290 mcg PO DAILY PRN Constipation 08/12/22 07/02/25 History (Linzess) fenofibric acid (choline) 135 mg 135 mg PO DAILY 01/22/24 07/02/25 History capsule,delayed release atorvastatin 10 mg tablet 10 mg PO DAILY 05/21/24 07/02/25 History aspirin 81 mg tablet,delayed 81 mg PO DAILY #30 tabs 05/28/24 07/02/25 Rx release (Adult Low Dose Aspirin) levothyroxine 88 mcg tablet 88 mcg PO DAILY 11/25/24 07/02/25 History semaglutide (weight loss) 0.5 0.25 mg SQ WEEKLY 11/25/24 07/02/25 History mg/0.5 mL subcutaneous pen injector (GeoMe) budesonide 160 mcg-glycopyr 9 2 inh inhalation BID 90 days #10.7 03/24/25 07/02/25 Rx mcg-formot 4.8 mcg/actuation HFA grams inhaler (Breztri Aerosphere) evolocumab 140 mg/mL subcutaneous See Rx Instructions .Route 04/07/25 07/02/25 Rx pen injector (Repatha SureClick) .COMPLEX #2 mL cholecalciferol (vitamin D3) 25 25 mcg PO DAILY 04/30/25 07/02/25 History mcg (1,000 unit) capsule mecobalamin (vitamin B12) 500 mcg 500 mcg PO DAILY 04/30/25 07/02/25 History chewable tablet sodium,potassium,mag sulfates 17.5 See Rx Instructions PO .COMPLEX 06/18/25 07/02/25 Rx gram-3.13 gram-1.6 gram oral soln #354 mL (Suprep Bowel Prep Kit) New Prescriptions to Start Prescriptions: Allergies Allergy/AdvReac Type Severity Reaction Status Date / Time codeine (CODEINE) Allergy Unknown Other Verified 07/02/25 07:40 Exam Data for Last 24 hours I & O for Last 24 hours: Intake & Output 06/27/25 06/28/25 06/29/25 06/30/25 23:59 23:59 23:59 23:59 Weight 160 lb *Routine HEENT Exam Head: Present normocephalic Eye: Present EOMI and PERRL ENT: Present mucous membranes moist *Routine Neck Exam Neck: Present supple *Routine Respiratory Exam Respiratory: Present CTA bilaterally *Routine Cardiovascular Exam Cardiovascular: Present RRR *Routine Abdominal Exam Abdominal: Present soft and normoactive bowel sounds; Absent tenderness *Routine Rectal Exam Rectal:: deferred *Routine Genitalia Exam Genitalia:: deferred *Routine Extremities Exam Extremities: Absent cyanosis, clubbing or edema *Routine Skin Exam Skin: Present warm; Absent rash *Routine Neurological Exam Neurological: Present alert and oriented X3 Assessment and Plan *Assessment and plan (1) Dysphagia: Status: Acute Category: Medical Code(s): R13.10 - Dysphagia, unspecified (2) Incomplete defecation: Status: Acute Category: Medical Code(s): R15.0 - Incomplete defecation (3) Obstipation: Status: Acute Category: Medical Code(s): K59.00 - Constipation, unspecified (4) Bloating: Status: Acute Category: Medical Code(s): R14.0 - Abdominal distension (gaseous) (5) Right lower quadrant abdominal pain: Status: Acute Category: Medical Code(s): R10.31 - Right lower quadrant pain Plan A/P: 1. Dysphagia for upper endoscopy and incomplete defecation, right lower quadrant abdominal pain and bloating for colonoscopy is the preprocedural diagnosis. The patient will be anesthetized/sedated using MAC sedation. The patient has been seen and examined. Cardiac and lung assessment prior to the examination is stable. Proceed with planned diagnostic EGD and colonoscopy.
--- NOTE | 2025-07-02 06:49 | HMH.PROCNOTE ---
[facility] Procedure Note Date: 07/02/25 Time: 08:12 Procedure Note:: Upper Endoscopy Procedure Report: Esophagogastroduodenoscopy with cold biopsies and TTS balloon dilation Endoscopost: Pedro Marinelli II, MD Referring Physician: Nupur Richey PA-C Date of Procedure: July 02, 2025 Equipment: Olympus [id number]-1100 standard upper endoscope Sedation: MAC sedation Indications: Mr. Vaughn is a 74-year-old gentleman who is here for diagnostic EGD and colonoscopy. The EGD is performed because of his dysphagia to solids and food getting hung up. He reports no heartburn, reflux or dyspepsia. He has had bulging on the right side of his abdomen. He has struggled with obstipation/incomplete defecation and outlet dysfunction constipation. He is working with pelvic floor physical therapy in [place]. He is on Linzess in the mornings and prune juice in the evening. He does state that MiraLAX no longer works. He has no solid bowel movements and they are completely loose and sometimes watery. He will sometimes have very little volume with incomplete defecation and excessive wiping. Sometimes he will have a little bit more volume. He primarily reports right lower quadrant abdominal pain and swelling with generalized bloating. He reports very little gassiness. He reports no rectal bleeding or weight loss. He did have a colonoscopy in January 2023 (Peter Duran MD). The report is fairly scant other than sigmoid diverticulosis and the terminal ileum was not visualized. The patient did have a CT scan of the abdomen and pelvis on March 05, 2025. He did have resolved right-sided hydronephrosis. There was also an abdominal aortic aneurysm measuring 40 x 39 mm in size (and was previously 32 x 31 mm from 2020). There was also increased fecal burden with excessive stool/gas in the right colon. There is no colonic distention. Procedure: Prior to the procedure, a history and physical exam was performed, and patient's medications and allergies were reviewed. The risks, benefits and alternatives of the sedation and procedure were discussed with the patient. All questions were answered and informed consent was obtained. The patient was brought to the procedure room. Patient identification and proposed procedure were verified by the physician and the nurse. The patient was placed in a left lateral decubitus position and the scope was passed under direct vision. Throughout the procedure, the patient's blood pressure, pulse, and oxygen saturations were monitored continuously. The upper GI endoscopy was accomplished without difficulty. The patient tolerated the procedure well. Findings: The scope was passed directly into the upper esophagus and advanced to the third portion of the duodenum. The post bulbar duodenum, ampulla and duodenal bulb were normal with normal mucosa and conniventes. Cold biopsies were taken from the second portion of the duodenum for the disaccharidase assay. The scope was withdrawn through a normal duodenal bulb and pylorus into the stomach. There was mild linear reactive gastropathy of the antrum. There was mild proximal chronic gastritis. The remainder of the body and fundus of the stomach were normal. Upon retroflexion there was no hiatal hernia. Cold biopsies were taken from the antrum and incisura. The scope was then withdrawn into the esophagus. There was no reflux esophagitis or Garcia's. There was a distal fibrous ring. There is no corrugation or furrowing. There were tertiary contractions and evidence of mild esophageal dysmotility. The esophagus was dilated to 60 Urdu/20 mm with a TTS hydrostatic balloon. There was shattering of the distal esophageal ring. The remainder of the esophageal mucosa was normal. Impression: 1. 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 Mild esophageal dysmotility 3. Mild linear reactive gastropathy and mild gastritis Plan: I will follow-up the biopsies and disaccharidase assay. I will proceed with diagnostic colonoscopy. We will discuss additional treatment options.
--- NOTE | 2025-07-02 06:50 | HMH.PROCNOTE ---
[facility] Procedure Note Date: 07/02/25 Time: 08:25 Procedure Note:: Colonoscopy Procedure Report: Colonoscopy with cold snare polypectomy Endoscopist: Pedro Marinelli II, MD Referring physician: Nupur Richey PA-C Date of Procedure: July 02, 2025 Equipment: Olympus [id number] adult colonoscope Sedation: MAC sedation Indication: Mr. Vaughn is a 74-year-old gentleman who is here for diagnostic EGD and colonoscopy. The patient does have bulging and bloating on the right side. He has struggled with obstipation/incomplete defecation and outlet dysfunction constipation. He is working with pelvic floor physical therapy in [place]. He is on Linzess in the mornings and prune juice in the evening. He does state that MiraLAX no longer works. He has no solid bowel movements and they are completely loose and sometimes watery. He will sometimes have very little volume with incomplete defecation and excessive wiping. Sometimes he will have a little bit more volume. He primarily reports right lower quadrant abdominal pain and swelling with generalized bloating. He reports very little gassiness. He reports no rectal bleeding or weight loss. He did have a colonoscopy in January 2023 (Peter Duran MD). The report is fairly scant other than sigmoid diverticulosis and the terminal ileum was not visualized. The patient did have a CT scan of the abdomen and pelvis on March 05, 2025. He did have resolved right-sided hydronephrosis. There was also an abdominal aortic aneurysm measuring 40 x 39 mm in size (and was previously 32 x 31 mm from 2020). There was also increased fecal burden with excessive stool/gas in the right colon. There is no colonic distention. Procedure: Prior to the procedure, a history and physical exam was performed, and patient's medications and allergies were reviewed. The risks, benefits and alternatives of the sedation and procedure were discussed with the patient. All questions were answered and informed consent was obtained. The patient was brought to the procedure room. Patient identification and proposed procedure were verified by the physician and the nurse. The patient was placed in a left lateral decubitus position and the scope was passed under direct vision. Throughout the procedure, the patient's blood pressure, pulse, and oxygen saturations were monitored continuously. The colonoscopy was accomplished without difficulty. The patient tolerated the procedure well. Findings: On digital rectal examination there was normal rectal tone. There were no external hemorrhoids. The prostate was 2+, smooth, soft, symmetric without nodules. The colonoscope was introduced through the anal canal to the rectum and advanced to the cecum. The ileocecal valve and appendiceal orifice were identified. The scope was advanced a short distance into the ileum which appeared grossly normal. The scope was then withdrawn into the colon. There were 2 colon polyps (cecum/appendiceal orifice x 1 (5 mm) and descending x 1 (4 mm)). Both of these were removed via cold snare polypectomy. The remaining cecum, ascending and transverse colon and mucosa were grossly normal. There were scattered diverticuli throughout the descending and sigmoid colon (LEFT colon). The rectum itself was normal. Upon retroflexion within the rectum there were grade 1-2 internal hemorrhoids. The preparation was excellent throughout with Coleman Preparation Score of 9. The cecal time was 12 minutes. Impression: 1. Diminutive colonic polyps x 2 2. Left-sided diverticulosis 3. Grade 1-2 internal hemorrhoids Plan: I will follow-up the polyp histology and discuss the findings with the patient and family. I do not feel that he will require any further preventative/surveillance colonoscopy.
[2025-07-02 07:30] VITALS: BP 125/70; PULSE 69; RESP 17; TEMP 36.1; O2SAT 96; BMI 25.0
[2025-07-02] MEDS: LACTATED RINGERS 1000ML 1,000 ML 50 ML IV (07:47)
--- NOTE | 2025-07-02 07:48 | EXP.ANES.CKL ---
[facility] Disclaimer: The information contained in this section may have been updated after the patient was seen, as this information can be updated by other users. Medical History Hoarseness Impacted cerumen, bilateral Perforated left tympanic membrane on examination Allergic rhinitis Dyspnea on exertion History of COPD History of smoking 30 or more pack years Impacted cerumen, left ear Abnormal PET scan of colon Encounter for pre-operative cardiovascular clearance Coronary artery disease [place] (hard of hearing) Kidney stone COPD (chronic obstructive pulmonary disease) Asthma Irritable bowel syndrome (IBS) History of gastroesophageal reflux (GERD) History of diverticulitis Hypothyroid History of cataract Allergies Hyperlipidemia Hypertension Thyroid Nodule Myocardial bridge HHD (hypertensive heart disease) CAD (coronary artery disease) Surgical History History of placement of ear tubes History of tonsillectomy and adenoidectomy History of cardiac cath Status post thyroidectomy Status post thyroidectomy Hx of cholecystectomy History of prostate surgery Hx of cataract surgery History of hernia surgery Hx of sinus surgery History of partial knee replacement History of total right knee replacement History of total left knee replacement Family History Mother Thyroid cancer Father Leukemia Other Family history of stroke Social History Smoking Status: Former smoker second hand exposure: No alcohol intake: current alcohol intake frequency: a few times a week substance use type: denies use current occupational status: retired Travel in the last 8 weeks?: None household members: spouse housing: house marital status: education level: high school current occupational exposures/hazards: No caffeine: Yes special ralf needs: No agree to transfusion: No do you feel safe at home: Yes victim of physical abuse: No victim of emotional abuse: No victim of sexual abuse: No would you like helpful sources: No Have you lived/traveled outside US in past 30 days?: No Contact w/someone who lives/traveled outside US past 30 days?: No Exposure to someone with infectious disease in past 14 days?: No Do you have a fever (greater than 100.4 F or 38 C)?: No Have you tested positive for COVID-19?: No Exposed to someone with COVID-19 in past 14 days?: No Do you have a sore throat?: No Do you have a cough?: No Do you have any weakness?: No Are you experiencing any nausea/vomitting?: No Do you have any diarrhea?: No Are you experiencing any unusual bleeding?: No Do you have any muscle aches/pain?: No Do you have any abdominal pain?: No Are you experiencing loss of taste or smell?: No [facility] Anesthesia Checklist Patient Identification Patient Identification: Arm Band and Verbal (Name & ) Structural Data Admitted From: Home Planned Operative Procedure/s: EGD and colonscopy Consent for Planned Operative Procedure(s) Verified: Yes Verified Documents: Surgical Consent and History and Physical NPO Status Verified Time NPO: 00:00 Additional verifications Anesthesia Reactions: No Hx Blood Transfusions: Yes Blood Transfusion Reaction: No Previous Colonoscopy: Yes Airway Assessment Mallampati Score:: Class II Dentition: Partials Neurological Assessment Level of Consciousness: Awake, Alert and Appropriate Hx Seizures: No Numbness or tingling in extremities: No Anesthesia Plan Anesthesia Risk discussed: Yes Anesthesia Plan: Verified ASA Class: III Anesthesia Type: MAC
[2025-07-02 08:27] VITALS: BP 91/53; PULSE 61; RESP 16; TEMP 36.6; O2SAT 98
[2025-07-02 08:37] VITALS: BP 103/55; PULSE 62; RESP 16; O2SAT 97
[2025-07-02 08:47] VITALS: BP 136/86; PULSE 64; RESP 16; O2SAT 98
[2025-07-02 08:57] VITALS: BP 131/73; PULSE 62; RESP 18; O2SAT 97
[2025-07-02 09:16] VITALS: BP 133/68; PULSE 63; RESP 18; TEMP 36.6; O2SAT 98
[2025-07-08 16:21] LABS: Interpretation Notes (.); Lactase 10.54 (>/= 14.0); Maltase 102.75 (>/= 110.0); Palatinase 7.9 (>/= 8.5); Reference Notes (.); Sucrase 22.83 (>/= 25.0)
== END 2025-07-02 09:16 | disposition home or self-care (01) ==
PROVIDERS: PCP Physician Assistant; Visit Provider Internal Medicine Gastroenterology
PROC: 0DJ08ZZ Inspection of Upper Intestinal Tract, Via Natural or Artificial Opening Endoscopic (ICD-10-PCS; CPT 45378; principal; 2025-07-02 08:30)
DX: D12.4 Benign neoplasm of descending colon (principal); K63.5 Polyp of colon; K29.50 Unspecified chronic gastritis without bleeding; K22.4 Dyskinesia of esophagus; K31.89 Other diseases of stomach and duodenum; K57.30 Diverticulosis of large intestine without perforation or abscess without bleeding; K64.0 First degree hemorrhoids; K64.1 Second degree hemorrhoids; K59.00 Constipation, unspecified; I25.10 Atherosclerotic heart disease of native coronary artery without angina pectoris; I10 Essential (primary) hypertension; J44.89 Other specified chronic obstructive pulmonary disease; E78.5 Hyperlipidemia, unspecified; Z79.82 Long term (current) use of aspirin; Z88.6 Allergy status to analgesic agent; Z87.891 Personal history of nicotine dependence
CPT/HCPCS: 43239; 43249; 45385; 82657; C1726; J2003; J2704; J7120

== ENCOUNTER 2025-08-28 10:31 | Outpatient (CLI) | payer MEDICARE, SELFPAY ==
--- OUTSIDE RECORDS SUMMARY | 2024-05-24 05:00 | XMS_ITS ---
Author Organization [facility] Address [address] [facility] [address] [place] [phone] Care Team Providers Care Cartographic Engineer Name Role Phone Valerio Dior Primary Care Provider Ania Richey Unavailable [phone] Allergies Allergen (clinical drug ingredient) Drug/Non Drug Allergy documented on EMR Reaction Allergy Type Onset Date Status umeclidinium Incruse Ellipta wheezing worse Drug Allergy Active codeine Codeine rash Drug Allergy Active Results Component Value Reference Range Notes CBC Fingerstick (in house) Reviewed date:05/24/2024 03:01:47 PM Interpretation: Performing Lab: Notes/Report: wbc 6.3 3.5 - 10 lym 24.2 15 - 50 mid 6.6 2 - 15 gran 69.2 35 - 80 rbc 5.04 3.5 - 5.5 hgb 14.9 11.5 - 16.5 hct 45.4 35 - 55 mcv 90.0 75 - 100 mch 29.5 25 - 35 mchc 32.8 31 - 38 plat 208 100 - 400 Reason For Referral Diagnosis 1 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 Referred Provider Specialty Dermatology General Notes Ania Richey 05/24 10:28:17 AM > Needs an appt at [facility], Poornima Whatley 05/24/2024 11:19:34 AM > [facility] 07/30/2024 at 10:40am; patient informed Referral Priority Routine REASON FOR VISIT ears hurting, stuffiness, drainage Medications Medication SIG (Take, Route, Frequency, Duration) Notes Start Date End Date Status Wegovy 0.5 MG/0.5ML 0.5 mg Subcutaneous once a week 05/24/2024 Active Lipitor 10 MG 1 tablet Orally Once a day; Duration: 30 day(s) 05/01/2024 Active CoQ-10 100 MG as directed Orally o nce daily; Duration: 30 day(s) 05/01/2024 Active Albuterol Sulfate HFA 108 (90 Base) MCG/ACT 1 puff as needed Inhalation every 4 hrs, prn 05/24/2024 Active Rosuvastatin Calcium 20 MG 1 tablet Oral ly Once a day; Duration: 90 days 04/26/2024 Active Levothyroxine Sodium 100 MCG 1 tablet in the morning on an empty stomach Orally Once a day; Duration: 90 days 04/26/2024 Active Montelukast Sodium 10 MG 1 tablet Orally Once a day; Duration: 30 day(s) 04/25/2024 Active Wegovy 0.25 MG/0.5ML 0.25 mg Subcutaneou s once a week 04/25/2024 Active dilTIAZem HCl ER 120 MG 1 capsule Orally Once a day; Duration: 30 day(s) Active clonazePAM 1 MG 1 tab(s) orally Two times a day; Duration: 30 days 01/15/2024 Active NEBULIZER SET UP FOR ADULT 1 MACHINE DIRECTED 0 09/25/2018 Active Linzess 290 MCG 1 capsule at least 3 0 minutes before the first meal of the day on an empty stomach Orally Once a day; Duration: 90 days 08/30/2023 Active Albuterol Sulfate 1.25 MG/3ML as directed Inhalation Activ e Omeprazole 40 MG 1 cap(s) orally once a day; Duration: 90 days 05/31/2018 Active Fenofibric Acid 135 MG TAKE ONE CAPSULE BY MOUTH ONCE A DAY Active Social History Tobacco Use: Social History Observation Description Date Details (start date - stop date) Former Smoker NA - NA CURRENT TOBACCO USE: Question Answer Notes Are you a: former smoker quit 1991 Vital Signs Weight 181.8 lbs 05/24/2024 Blood pressure systolic 110 mm Hg 05/24/20 24 Blood pressure diastolic 62 mm Hg 024 Heart Rate 56 /min 05/24/2024 Height 67 in 05/24/2024 BMI 28.47 kg/m2 05/24/2024 Encounters Encounter Location Date Provider Diagnosis [facility] [address] [place] [id number] 05/24/2024 Ania Richey Neoplasm of uncertai n behavior D48.9 ; Acute URI J06.9 ; COPD (chronic obstructive pulmonary disease) J44.9 and Coronary artery disease, unspecified vessel or lesion type, unspecified whether angina present, unspecified whether [place] or transplanted heart I25.10 Assessments Encounter Date Diagnosis (ICD Code) Assessment Notes Treatment Notes Treatment Clinical Notes Section Notes 05/24/2024 Neoplasm of uncertain behavior (ICD-10 - D48.9) 05/24/2024 Acute URI (ICD-10 - J06.9) Patient is feeling better. He does not need any cough medication. 05/24/2024 COPD (chronic obstructive pulmonary disease) (ICD-10 - J44.9) 05/24/2024 Coronary artery disease, unspecified vessel or lesion type, unspecified whether angina present, unspecified whether [place] or transplanted heart (ICD-10 - I25.10) Will increase dose. Plan Of Treatment Medication Medication Name Sig Start Date Stop Date Notes Wegovy 0.5 MG/0.5ML 0.5 mg Subcutaneous once a week 05/24/2024 Albuterol Sulfate HFA 108 (90 Base) MCG/ACT 1 puff as needed Inhalation every 4 hrs, prn 05/24/2024 Treatment Notes Assessment Notes Acute URI Patient is feeling b jossie. He does not need any cough medication. Coronary artery disease, uns pecified vessel or lesion type, unspecified whether angina present, unspecified whether [place] or transplanted heart Will increase dose. Referrals Referral Date Details 05/24/2024 05/24/2024, . Dermat ology Next Appt Details Follow Up: prn, Reason: Progress Notes * PELRA VAUGHNDOB:1950 (74 yo M)Acc No.[id number]:05/24/2024 Progress Notes Patient: PERLA HU Provider: JOSEE Espinal :1950 A ge:73 Y S ex:Male Date:05/24/2024 Address:[address] [place] [address], [place], [id number] Pcp:Valerio Dior Subjective: * Chief Complaints: * 1 . Ears hurting, stuffiness, drainage. * HPI: E NT/respiratory: 73 year old male presents with c/o ear pain. c/o post nasal drainage P t presents today for ear pain, stuffiness, and drainage. Pt sts he had a dull headache and sore scratchy throat. Pt sts he did have a low grade fever as well. Pt sts he thinks he is getting over it as he feels better today. Pt would like to talk about Wegovy and he has a couple of things he would like looked at as well today. * ROS: D ERMATOLOGY: no R armand. n o H stephany. G ASTROENTEROLOGY: no N ausea. n o V omiting. n o D iarrhea.? U ROLOGY: no D ifficulty urinating. n o B lood in urine. 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 * Surgical History: T onsillectomy 1968, Cholecystectomy 1990, LT Knee Partial Replacement 1999, RT Knee Total Replacement 2006, Sinus 2009, Abdominal wall hernia repair , C-scope - Dr. Leggett 2011, left knee replacement 07/2017, Heart Cath Apr 2018, C-scope - Dr. Marinelli/ polyps 10/2016, Urolift - Dr. Brown 08/2021, Heart Cath - Dr. Almeida 07/13/2023. * Hospitalization/Major Diagno stic Procedure: a lola surgeries , [facility]-kidney stone 08/2017, [facility] ER - kidney stone 01/02/2021. * Family History: F ather: , leukemia. M other: , diagnosed with Hypertension, Stroke, Cancer. 1 son(s) , 1 daughter(s) - healthy. . * Social History: C URRENT TOBACCO USE A re you a: f keshawn smoker quit 1991. C affeine: no. Home smoke detector use: yes. Marital Status: . Alcohol: Yes, Type: , Frequency: ,Years: , Determination:, moderately, couple of beers a day. * Medications: T aking Albuterol Sulfate 1.25 MG/3ML Nebulization Solution as directed Inhalation , Taking Omeprazole 40 MG Capsule Delayed Release 1 cap(s) orally once a day , Taking NEBULIZER SET UP FOR ADULT 1 MACHINE DIRECTED , Taking Linzess 290 MCG Capsule 1 capsule at least 30 minutes before the first meal of the day on an empty stomach Orally Once a day , Taking Fenofibric Acid 135 MG Capsule Delayed Release TAKE ONE CAPSULE BY MOUTH ONCE A DAY , Taking clonazePAM 1 MG Tablet 1 tab(s) orally Two times a day , Taking dilTIAZem HCl ER 120 MG Capsule Extended Release 12 Hour 1 capsule Orally Once a day , Taking Montelukast Sodium 10 MG Tablet 1 tablet Orally Once a day , Taking Wegovy 0.25 MG/0.5ML Solution Auto-injector 0.25 mg Subcutaneous once a week , Taking Levothyroxine Sodium 100 MCG Tablet 1 tablet in the morning on an empty stomach Orally Once a day , Taking Rosuvastatin Calcium 20 MG Tablet 1 tablet Orally Once a day , Taking Lipitor 10 MG Tablet 1 tablet Orally Once a day , Taking CoQ-10 100 MG Capsule as directed Orally once daily , Medication List reviewed and reconciled with the patient * Allergies: C odeine: rash - Allergy, Incruse Ellipta: wheezing worse. Objective: * Vitals: W t:181.8, Temp:98.6, BP:110/62, HR:56, O2 Sat:94% on RA, Nurse:HEBERT, Ht: 67, BMI:28.47. * Examination: E NT/Respiratory: General Appearance: N AD. E ars: a uditory canals normal bilaterally, TM's WNL. N ose : turbinates red, congested. S inuses : n on tender bilaterally. O ral cavity : erythema without exudate on pharynx, PND present. N thu : n o cervical lymphadenopathy. H eart : R RR, normal S1 S2, no murmurs. L ungs:?clear to auscultation bilaterally. S kin : asymmetrical, dark pigmented skin lesion on the frontal scalp and one on the right ear. Assessment: * Assessment: 1. 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 A cute URI - J06.9 3 . C OPD (chronic obstructive pulmonary disease) - J44.9 4 . C oronary artery disease, unspecified vessel or lesion type, unspecified whether angina present, unspecified whether [place] or transplanted heart - I25.10 Plan: * Treatment: 2. A cute URI L AB: CBC Fingerstick (in house) (Collection Date & Time - 05/24/2024) Value Reference Range w bc 6.3 3.5 - 10 * l ym 24.2 15 - 50 * m id 6.6 2 - 15 * g ran 69.2 35 - 80 * r bc 5.04 3.5 - 5.5 * h gb 14.9 11.5 - 16.5 * h ct 45.4 35 - 55 * m cv 90.0 75 - 100 * m ch 29.5 25 - 35 * m chc 32.8 31 - 38 * p lat 208 100 - 400 * Puja Dia 05/24/2024 10:14:0 7 AM > Provider reviewed results while patient in office.Ania Richey 05/24/2024 3:01:45 PM > Notes: Patient is feeling better. He does not need any cough medication.?? 3.?COPD (chronic obstructive pulmonary disease)? Start Albuterol Sulfate HFA Aerosol Solution, 108 (90 Base) MCG/ACT, 1 puff as needed, Inhalation, every 4 hrs, prn, 1, Refills 5.??4.?Coronary artery disease, unspecified vessel or lesion type, unspecified whether angina present, unspecified whether [place] or transplanted heart? Start Wegovy Solution Auto-injector, 0.5 MG/0.5ML, 0.5 mg, Subcutaneous, once a week, 4, Refills 0. ? Notes: Will increase dose.?? * Procedure Codes: 9 [address] [place], [address] CAPILLARY BLOOD DRAW, 62784 CBC WITH AUTO DIFF * Follow Up: p rn * Images: Billing Information: * Visit Code: 24653 Office Visit, Est Pt., Level 3. * Procedure Codes: [address] [place]. [address] CAPILLARY BLOOD DRAW. 58461 CBC WITH AUTO DIFF. * Electronic signature of JOSEE Maria on 08/28/2025 at 11:54 AM EST Sign off status: Pending * Provider: JOSEE Espinal Date: 0 05/24/2024 Generated for Ivannai ng/Faalang/eTransmitting on: 1 10/29/2024 11:54 AM EST History and Physical Notes * HPI (History of Present Illness) Category Sub-Category Detail Notes Category Not es ENT/respiratory ear pain post nasal drainage Pt presents today fo r ear pain, stuffiness, and drainage. Pt sts he had a dull headache and sore scratchy throat. Pt sts he did have a low grade fever as well. Pt sts he thinks he is getting over it as he feels better today. Pt would like to talk about Wegovy and he has a couple of things he would like looked at as well today Examination Category Sub-Category Detail Notes Category Not es ENT/Respiratory Oral cavity : erythema without exudate on pharynx, PND present Sinuses : non tender bilateral ly Ears: auditory canals norm al bilaterally, TM's WNL Neck : no cervical lymphade nopathy Heart : RRR, normal S1 S2, n o murmurs Lungs: clear to auscultatio n bilaterally General Appearance: NAD Nose : turbinates red, suzi ested Skin : asymmetrical, dark p igmented skin lesion on the frontal scalp and one on the right ear Consultation Request Notes Referral Date Referring Provider Referred Provider Not es 05/24/2024 Ania Richey Dermatology, .
--- OUTSIDE RECORDS SUMMARY | 2024-06-26 04:45 | XMS_ITS ---
Author Organization [facility] Address [address] [facility] [address] [place] [id number] Care Team Providers Care Exceptional Children'S Teacher Name Role Phone Valerio Dior Primary Care Provider Ania Richey [phone] REASON FOR VISIT Discuss Wegovy; Hoarseness Encounters Encounter Location Date Provider Diagnosis [facility] [address] [facility] [address] [place] [phone] 06/26/2024 Ania Richey Plan Of Treatment No Information Progress Notes * JOHANAGONZALOAKIDOB:1950 (74 yo M)Acc No.[id number]:06/26/2024 Progress Notes Patient: PERLA HU Provider: JOSEE Espinal :1950 A ge:73 Y S ex:Male Date:06/26/2024 Address:[address] , [facility] Pcp:Valerio Dior Subjective: * Chief Complaints: * 1 . Discuss Wegovy; Hoarseness. * Medical History: Objective: * Vitals: Assessment: Plan: * Treatment: * Images: Billing Information: * Visit Code: * Procedure Codes: * Electronic signature of JOSEE Maria on 08/28/2025 at 11:54 AM EST Sign off status: Pending * Provider: JOSEE Espinal Date: 1 Generated for Antwan negrete/Eliseo/Clinton on: 1 10/29/2024 11:54 AM EST
--- OUTSIDE RECORDS SUMMARY | 2024-06-27 04:15 | XMS_ITS ---
Author Organization [facility] Address [address] [facility] [address] [place] [id number] Care Team Providers Care Speech Lang Path Name Role Phone Valerio Dior Primary Care Provider Ania Richey Unavailable [phone] Allergies Allergen (clinical drug ingredient) Drug/Non Drug Allergy documented on EMR Reaction Allergy Type Onset Date Status umeclidinium Incruse Ellipta wheezing worse Drug Allergy Active codeine Codeine rash Drug Allergy Active REASON FOR VISIT check up, Needs labs & flu vaccine Medications Medication SIG (Take, Route, Frequency, Duration) Notes Start Date End Date Status Fenofibric Acid 135 MG TAKE ONE CAPSULE BY MOUTH ONCE A DAY Active Linzess 290 MCG 1 capsule at least 3 0 minutes before the first meal of the day on an empty stomach Orally Once a day; Duration: 90 days 08/30/2023 Active Wegovy 1 MG/0.5ML 1 mg Subcutaneous on ce a week 06/27/2024 Active Cefdinir 300 MG 1 cap Orally Two paula es a day; Duration: 7 days 06/27/2024 Active Omeprazole 40 MG 1 cap(s) orally once a day; Duration: 90 days 05/31/2018 Active Albuterol Sulfate 1.25 MG/3ML as directed Inhalation Activ e Repatha 140 MG/ML 1 mL Subcutaneous; Duration: 30 day(s) Active NEBULIZER SET UP FOR ADULT 1 MACHINE DIRECTED 0 09/25/2018 Active Lipitor 10 MG 1 tablet Orally Once a day; Duration: 30 day(s) 05/01/2024 Active Albuterol Sulfate HFA 108 (90 Base) MCG/ACT 1 puff as needed Inhalation every 4 hrs, prn 05/24/2024 Active CoQ-10 100 MG as directed Orally o nce daily; Duration: 30 day(s) 05/01/2024 Active clonazePAM 1 MG 1 tab(s) orally Two times a day; Duration: 30 days 05/27/2024 Active dilTIAZem HCl ER 120 MG 1 capsule Orally Once a day; Duration: 30 day(s) Active Rosuvastatin Calcium 20 MG 1 tablet Oral ly Once a day; Duration: 90 days 04/26/2024 Active Levothyroxine Sodium 100 MCG 1 tablet in the morning on an empty stomach Orally Once a day; Duration: 90 days 04/26/2024 Active Montelukast Sodium 10 MG 1 tablet Orally Once a day; Duration: 30 day(s) 04/25/2024 Active Social History Tobacco Use: Social History Observation Description Date Details (start date - stop date) Former Smoker NA - NA CURRENT TOBACCO USE: Question Answer Notes Are you a: former smoker quit 1991 Problems Problem Type SNOMED Code ICD Code Onset Dates Problem Status W/U Status Risk Notes Problem Overweight (427608540) Overweight (BMI 25.0-29.9) (E66.3) Active confirmed Vital Signs Weight 175.8 lbs 06/27/2024 Blood pressure systolic 120 mm Hg 06/27/20 24 Blood pressure diastolic 60 mm Hg 024 Heart Rate 71 /min 06/27/2024 Height 67 in 06/27/2024 BMI 27.53 kg/m2 06/27/2024 Encounters Encounter Location Date Provider Diagnosis [facility] [address] [facility] [address] [place], [place] [id number] 06/27/2024 Ania Richey Coronary artery dise ase, unspecified vessel or lesion type, unspecified whether angina present, unspecified whether [place] or transplanted heart I25.10 ; Overweight (BMI 25.0-29.9) E66.3 ; Acute otitis media, left H66.92 and Acute URI J06.9 Assessments Encounter Date Diagnosis (ICD Code) Assessment Notes Treatment Notes Treatment Clinical Notes Section Notes 06/27/2024 Coronary artery disease, unspecified vessel or lesion type, unspecified whether angina present, unspecified whether [place] or transplanted heart (ICD-10 - I25.10) 06/27/2024 Overweight (BMI 25.0-29.9) (ICD-10 - E66.3) 06/27/2024 Acute otitis media, left (ICD-10 - H66.92) 06/27/2024 Acute URI (ICD-10 - J06.9) Plan Of Treatment Medication Medication Name Sig Start Date Stop Date Notes Wegovy 0.25 MG/0.5ML 0.25 mg Subcutaneous once a week 04/11 Wegovy 0.5 MG/0.5ML 0.5 mg Subcutaneous once a week 2023 Wegovy 1 MG/0.5ML 1 mg Subcutaneous once a week 06/27/2024 Cefdinir 300 MG 1 cap Orally Two paula es a day; Duration: 7 days 06/27/2024 Next Appt Details Follow Up: via phone to repo rt progress, Reason: Progress Notes * PERLA VAUGHNDOB:1950 (74 yo M)Acc No.[id number]:06/27/2024 Progress Notes Patient: PERLA HU Provider: JOSEE Espinal :1950 A ge:73 Y S ex:Male Date:06/27/2024 Address:[address] [place] [address], [id number] Pcp:Valerio Dior Subjective: * Chief Complaints: * 1 . Check up. 2. Needs labs & flu vaccine. * HPI: H PI: 73 year old male presents with c/o Patient is here today for?Pt is here today for a check up. Pt sts he is here to increase his Wegovy dose. He is doing well.. E NT/respiratory: c/o nasal congestion. Denies : sore throat. Pt sts he has had congestion for the past few weeks. * ROS: D ERMATOLOGY: no R armand. [...] Diagno stic Procedure: a lola surgeries , [facility]-kidney stone 08/2017, [facility] ER - kidney stone 01/02/2021. * Family History: F ather: , leukemia. M other: , diagnosed with Hypertension, Stroke, Cancer. 1 son(s) , 1 daughter(s) - healthy. . * Social History: C URRENT TOBACCO USE A re you a: f ormer smoker quit 1991. C affeine: no. Home smoke detector use: yes. Marital Status: . Alcohol: Yes, Type: , Frequency: ,Years: , Determination:, moderately, couple of beers a day. * Medications: T aking Repatha 140 MG/ML Solution Prefilled Syringe 1 mL Subcutaneous , Taking Albuterol Sulfate 1.25 MG/3ML Nebulization Solution as [...] BY MOUTH ONCE A DAY , Taking Montelukast Sodium 10 MG Tablet [...] Capsule as directed Orally once daily , Taking Albuterol Sulfate HFA 108 (90 Base) MCG/ACT Aerosol Solution 1 puff as needed Inhalation every 4 hrs, prn , Taking Wegovy 0.5 MG/0.5ML Solution Auto-injector 0.5 mg Subcutaneous once a week , Taking dilTIAZem HCl ER 120 MG Capsule Extended Release 12 Hour 1 capsule Orally Once a day , Taking clonazePAM 1 MG Tablet 1 tab(s) orally Two times a day , Medication List reviewed and reconciled with the patient * Allergies: C odeine: rash - Allergy, Incruse Ellipta: wheezing worse. Objective: * Vitals: W t:175.8, Temp:97.0, BP:120/60, HR:71, O2 Sat:97% on RA, Nurse:HEBERT, Ht: 67, BMI:27.53. * Examination: E NT/Respiratory: General Appearance: N AD. E ars: a uditory canals normal bilaterally, left TM erythematous, right TM normal. N ose : clear rhinorrhea. O ral cavity : n o erythema or exudate seen on pharynx. N thu : n o cervical lymphadenopathy. H eart : R RR, normal S1 S2, no murmurs. L ungs: c lear to auscultation bilaterally. Assessment: * Assessment: 1. C oronary artery disease, unspecified vessel or lesion type, unspecified whether angina present, unspecified whether [place] or transplanted heart - I25.10 (Primary) 2 . O verweight (BMI 25.0-29.9) - E66.3 3 . A cute otitis media, left - H66.92 & #160; 4 . A cute URI - J06.9 Plan: * Treatment: 2. A cute otitis media, left Start Cefdinir Capsule, 300 MG, 1 cap, Orally, Two times a day, 7 days, 14 Capsule, Refills 0. * Procedure Codes: 9 4760 PULSE OX * Follow Up: v ia phone to report progress * Images: Billing Information: * Visit Code: 43836 Office Visit, Est Pt., Level 3. * Procedure Codes: 28375 PULSE OX. * Electronic signature of JOSEE Maria on 08/28/2025 at 11:54 AM EST Sign off status: Pending * Provider: JOSEE Espinal Date: 1 Generated for Printi ng/Faxing/eTransmitting on: 10/29/2024 11:54 AM EST History and Physical Notes * HPI (History of Present Illness) Category Sub-Category Detail Notes Category Not es ENT/respiratory sore throat Pt sts he liao s had congestion for the past few weeks nasal congestion HPI Patient is here today for Pt is here today for a check up. Pt sts he is here to increase his Wegovy dose. He is doing well. Examination Category Sub-Category Detail Notes Category Not es ENT/Respiratory Oral cavity : no erythema or exudate s een on pharynx Ears: auditory canals norm al bilaterally, left TM erythematous, right TM normal Neck : no cervical lymphade nopathy Heart : RRR, normal S1 S2, n o murmurs Lungs: clear to auscultatio n bilaterally General Appearance: NAD Nose : clear rhinorrhea
--- OUTSIDE RECORDS SUMMARY | 2024-07-25 04:15 | XMS_ITS ---
[facility] Address [address] [facility] [address] [place] [id number] Care Team Providers Care Multi Media Specialist Name Role Phone Valerio Dior Primary Care Provider [phone] Ania Richey [phone] Allergies Allergen (clinical drug ingredient) Drug/Non Drug Allergy documented on EMR Reaction Allergy Type Onset Date Status umeclidinium Incruse Ellipta wheezing worse Drug Allergy Active codeine Codeine rash Drug Allergy Active Reason For Referral Diagnosis 1 Hoarse (R49.0) Referral Organization [facility] Referring Provider First Name Ania Referring Provider Last Name Kaiden Referring Provider 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 Referred Provider Specialty ENT General Notes Ania Richey 07/12 10:33:06 AM > Needs an appt with GERALD.Phylicia Brynn 07/25/2024 10:35:27 AM > faxed referral to [facility] Phylicia DUARTE Brynn 07/26/2024 9:56:06 AM > referral received; patient scheduled Referral Priority Routine REASON FOR VISIT wegovy discuss Medications Medication SIG (Take, Route, Frequency, Duration) Notes Start Date End Date Status Fenofibric Acid 135 MG TAKE ONE CAPSULE BY MOUTH ONCE A DAY Active clonazePAM 1 MG 1 tab(s) orally Two times a day; Duration: 30 days 05/27/2024 Active Azelastine HCl 137 MCG/SPRAY 1 puff in each nostril Nasally Twice a day 07/25/2024 Active Repatha 140 MG/ML 1 mL Subcutaneous; Duration: 30 day(s) Active Wegovy 1 MG/0.5ML 1 mg Subcutaneous on ce a week Active Albuterol Sulfate HFA 108 (90 Base) MCG/ACT 1 puff as needed Inhalation every 4 hrs, prn 05/24/2024 Active dilTIAZem HCl ER 120 MG 1 capsule Orally Once a day; Duration: 30 day(s) Active Lipitor 10 MG 1 tablet Orally Once a day; Duration: 30 day(s) 05/01/2024 Active CoQ-10 100 MG as directed Orally o nce daily; Duration: 30 day(s) 05/01/2024 Active Rosuvastatin Calcium 20 MG 1 tablet Oral ly Once a day; Duration: 90 days 04/26/2024 Active Montelukast Sodium 10 MG 1 tablet Orally Once a day; Duration: 30 day(s) 04/25/2024 Active NEBULIZER SET UP FOR ADULT 1 MACHINE DIRECTED 0 09/25/2018 Active Linzess 290 MCG 1 capsule at least 3 0 minutes before the first meal of the day on an empty stomach Orally Once a day; Duration: 90 days 08/30/2023 Active Omeprazole 40 MG 1 cap(s) orally once a day; Duration: 90 days 05/31/2018 Active Levothyroxine Sodium 100 MCG 1 tablet in the morning on an empty stomach Orally Once a day; Duration: 90 days 04/26/2024 Active Albuterol Sulfate 1.25 MG/3ML as directed Inhalation Activ e Social History Tobacco Use: Social History Observation Description Date Details (start date - stop date) Former Smoker NA - NA CURRENT TOBACCO USE: Question Answer Notes Are you a: former smoker quit 1991 Vital Signs Weight 172.4 lbs 07/25/2024 Blood pressure systolic 132 mm Hg 07/25/20 24 Blood pressure diastolic 62 mm Hg 024 Heart Rate 83 /min 07/25/2024 Height 67 in 07/25/2024 BMI 27.00 kg/m2 07/25/2024 Encounters Encounter Location Date Provider Diagnosis [facility] [address] [facility] [address] [place] [id number] 07/25/2024 Ania Richey Coronary artery dise ase, unspecified vessel or lesion type, unspecified whether angina present, unspecified whether [place] or transplanted heart I25.10 ; Hoarse R49.0 and Seasonal allergic rhinitis, unspecified trigger J30.2 Assessments Encounter Date Diagnosis (ICD Code) Assessment Notes Treatment Notes Treatment Clinical Notes Section Notes 07/25/2024 Coronary artery disease, unspecified vessel or lesion type, unspecified whether angina present, unspecified whether [place] or transplanted heart (ICD-10 - I25.10) 07/25/2024 Hoarse (ICD-10 - R49.0) 07/25/2024 Seasonal allergic rhinitis, unspecified trigger (ICD-10 - J30.2) Plan Of Treatment Medication Medication Name Sig Start Date Stop Date Notes Azelastine HCl 137 MCG/SPRAY 1 puff in e ach nostril Nasally Twice a day 07/25/2024 Wegovy 1 MG/0.5ML 1 mg Subcutaneous once a week Referrals Referral Date Details 07/25/2024 07/25/2024, . ENT Next Appt Details Follow Up: 2 Months, Reason: Progress Notes * PERLA VAUGHNDOB:1950 (74 yo M)Acc No.[id number]:07/25/2024 Progress Notes Patient: PERLA HU Provider: JOSEE Espinal :1950 A ge:73 Y S ex:Male Date:07/25/2024 Address:[address] [place] [address], [id number] Pcp:Valerio Dior Subjective: * Chief Complaints: * 1 . Wegovy discuss. * HPI: C onstitutional: 73 year old male presents with c/o weight loss P t is here today to discuss wegovy. He would like to stay at the same dose. He does not think he could tolerate a higher dose at this time. Pt sts he is still hoarse as well. . * ROS: D ERMATOLOGY: no R armand. [...] Diagno stic Procedure: a lola surgeries , [facility]-kidney stone 08/2017, [facility] - kidney stone 01/02/2021. * Family [...] stomach Orally Once a day , Taking Montelukast Sodium 10 MG Tablet 1 tablet Orally Once a day , Taking Levothyroxine Sodium 100 MCG Tablet [...] Inhalation every 4 hrs, prn , Taking dilTIAZem HCl ER 120 MG Capsule Extended Release 12 Hour 1 capsule Orally Once a day , Taking clonazePAM 1 MG Tablet 1 tab(s) orally Two times a day , Taking Wegovy 1 MG/0.5ML Solution Auto-injector 1 mg Subcutaneous once a week , Taking Fenofibric Acid 135 MG Capsule Delayed Release TAKE ONE CAPSULE BY MOUTH ONCE A DAY , Medication List reviewed and reconciled with the patient * Allergies: C odeine: rash - Allergy, Incruse Ellipta: wheezing worse. Objective: * Vitals: W t:172.4, Temp:97.9, BP:132/62, HR:83, O2 Sat:95% on RA, Nurse:HEBERT, Ht: 67, BMI:27.00. * Examination: G eneral Examination: General Appearance: N AD. H EENT: s clera and conjunctiva clear, PERRLA, TM's normal, translucent, nose congested. O ral cavity: n o lesions, mucosa moist and WNL, no erythema. N thu: s upple, no lymphadenopathy. C hest: n ormal shape and expansion. H eart: R SR. L ungs: c lear to auscultation. A bdomen:? bowel sounds present, soft and nontender. Assessment: * Assessment: 1. C oronary artery disease, unspecified vessel or lesion type, unspecified whether angina present, unspecified whether [place] or transplanted heart - I25.10 (Primary) 2 . H oarse - R49.0 3 . S easonal allergic rhinitis, unspecified trigger - J30.2 & #160; Plan: * Treatment: 2. H oarse Referral To:. ENT ENT Reason: 3. S easonal allergic rhinitis, unspecified trigger Start Azelastine HCl Solution, 137 MCG/SPRAY, 1 puff in each nostril, Nasally, Twice a day, 1, Refills 5. * Procedure Codes: 9 4760 PULSE OX * Follow Up: 2 Months * Images: Billing Information: * Visit Code: 18982 Office Visit, Est Pt., Level 3. * Procedure Codes: 01843 PULSE OX. * Electronic signature of JOSEE Maria on 08/28/2025 at 11:52 AM EST Sign off status: Pending * Provider: JOSEE Espinal Date: 09/24/2023 Generated for Antwan negrete/Eliseo/eTransmitting on: 10/29/2024 11:52 AM EST History and Physical Notes * HPI (History of Present Illness) Category Sub-Category Detail Notes Category Not es Constitutional weight loss Pt is here today to discuss wegovy. He would like to stay at the same dose. He does not think he could tolerate a higher dose at this time. Pt sts he is still hoarse as well. Examination Category Sub-Category Detail Notes Category Not es General Examination HEENT: sclera and c onjunctiva clear, PERRLA, TM's normal, translucent, nose congested Heart: RSR Lungs: clear to auscultatio n Abdomen: bowel sounds present , soft and nontender General Appearance: NAD Neck: supple, no lymphaden opathy Oral cavity: no lesions, mucosa m oist and WNL, no erythema Chest: normal shape and exp ansion Consultation Request Notes Referral Date Referring Provider Referred Provider Not es 07/25/2024 Ania Richey ENT, .
--- OUTSIDE RECORDS SUMMARY | 2024-11-14 04:00 | XMS_ITS ---
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2 75 - 100 mch 28.7 25 - 35 mchc 32.5 31 - 38 platlet 203 100 - 400 P-Vitamin B12 Reviewed date:11/15/2024 03:54:56 PM Interpretation:Normal Performing Lab: Notes/Report: Test performed by [facility] [address] [place] [address] , [address], [place] [address] Marino Bullock MD, [employer] CLIA: [id number] Vitamin B12 694 143-8963 pg/mL P-Comprehensive Metabolic Pa sakshi (CMP) Reviewed date:11/15/2024 03:54:56 PM Interpretation:Normal Performing Lab: Notes/Report: Test performed by [facility] [address] [place] [address] , [address], [place] [address] Marino Bullock MD, [employer]ing [employer] CLIA: [id number] Sodium 143 135-145 mmol/L Potassium 4.4 3.5-5.3 mmol/L Chloride 106 97-108 mmol/L CO2 28 22-32 mmol/L Glucose 75 65-99 mg/dL BUN 23 8-23 mg/dL Creatinine 1.16 0.70-1.30 mg/dL Calcium 9.3 8.6-10.4 mg/dL eGFR by Creatinine 65 >59 mL/min/1.73m2 Protein 6.0 6.0-8.3 g/dL Albumin 4.1 3.5-5.3 g/dL Alkaline Phosphatase 76 40-129 IU/L ALT (SGPT) 26 <5-55 IU/L AST (SGOT) 28 <5-46 IU/L Bilirubin, Total 0.4 <0.2-1.2 mg/dL A/G Ratio 2.2 1.1-2.5 P-T4 Free (thyroxine) Reviewed date:11/15/2024 03:54:56 PM Interpretation:2.11 Performing Lab: Notes/Report: Test performed by [facility] [address] [place] [address] , [place] [address] Marino Bullock MD, [employer]ing [employer] CLIA: [id number] Thyroxine Free (free T4) 2.11 0.86-1.76 ng/dL P-Lipid Panel Reviewed date:11/15/2024 03:54:56 PM Interpretation:hdl 35 Performing Lab: Notes/Report: Test performed by [facility] [address] [place] [address] , [address], [place] [address] Marino Bullock MD, [employer]ing [employer] CLIA: [id number] Cholesterol 73 <200 mg/dL Triglycerides 91 <150 mg/dL HDL Cholesterol 35 >39 mg/dL Cholesterol / HDL Ratio 2.09 0.00-4.99 Ratio Non-HDL Cholesterol 38 <130 mg/dL LDL Cholesterol (Calculation) 20 <130 mg/dL LDL Cholesterol Levels* Less than 100 mg/dL Optimal 100 to 129 mg/dL Near Optimal/ Above Optimal 130 to 159 mg/dL Borderline High 160 to 189 mg/dL High 190 mg/dL and above Very High * Categories as recommended by the 2004 ATPIII guidelines LDL/HDL Ratio 0.6 <3.3 Ratio LDL Cholesterol Patient History Test Date: 09/14/2023 LDL Results: 109 Units: mg/dL % Change: - Test Date: 04/25/2024 LDL Results: 177 Units: mg/dL % Change: +62% Test Date: 11/14/2024 LDL Results: 20 Units: mg/dL % Change: -88% P-Magnesium Reviewed date:11/15/2024 03:54:56 PM Interpretation:Normal Performing Lab: Notes/Report: Test performed by [facility] , [place] [address] Marino Bullock MD, Pricing Lead CLIA: [id number] Magnesium 1.9 1.6-2.4 mg/dL P-PSA Reviewed date:11/15/2024 03:54:56 PM Interpretation:Normal Performing Lab: Notes/Report: [facility] , [place] [address] Marino Bullock MD, Pricing Lead CLIA: [id number] PSA 2.04 <4.00 ng/mL Please note this is an ultrasensitive PSA assay with a lower limit of detection of 0.014 ng/mL. This test is performed by the [employer] ECLIA methodology. Values obtained with different assay methods or kits cannot be directly compared. P-TSH Reviewed date:11/15/2024 03:54:56 PM Interpretation:0.25 Performing Lab: Notes/Report: Test performed by [facility] [address] , [place] [address] Marino Bullock MD, Pricing Lead CLIA: [id number] TSH 0.25 0.43-5.25 mU/L P-Uric Acid Reviewed date:11/15/2024 03:54:56 PM Interpretation:Normal Performing Lab: Notes/Report: Test performed by [facility] [address] , [place] [address] Marino Bullock MD, Pricing Lead CLIA: [id number] Uric Acid 5.7 3.4-8.0 mg/dL P-Vitamin D 25-Hydroxy Reviewed date:11/15/2024 03:54:56 PM Interpretation:28.6 Performing Lab: Notes/Report: Test performed by [facility] [address] [place], [place] [id number] Marino Bullock MD, [employer]ing [employer] CLIA: [id number] Vitamin D 25-Hydroxy 28.6 30.0-100.0 ng/mL Interpretation of Vitamin D 25 OH: < 20 ng/mL - Deficiency 20 - 29 ng/mL - Insufficiency 30 - 100 ng/mL - Sufficiency > 100 ng/mL - Super-therapeutic- toxicity may occur above this level. Clinical correlation required. REASON FOR VISIT rash, not feeling well, no energy Medications Medication SIG (Take, Route, Frequency, Duration) Notes Start Date End Date Status clonazePAM 1 MG 1 tab(s) orally Two times a day; Duration: 30 days 08/23/2024 Active Levothyroxine Sodium 100 MCG 1 tablet in the morning on an empty stomach Orally Once a day; Duration: 30 days Active Albuterol Sulfate HFA 108 (90 Base) MCG/ACT 1 puff as needed Inhalation every 4 hrs, prn 05/24/2024 Active Linzess 290 MCG 1 capsule at least 3 0 minutes before the first meal of the day on an empty stomach Orally Once a day; Duration: 30 days Active Atorvastatin Calcium 40 MG 1 tablet Oral ly Once a day; Duration: 30 day(s) Active Breztri Aerosphere 160-9-4.8 MCG/ACT 2 puffs Inhalation Twice a day Active Repatha 140 MG/ML 1 mL Subcutaneous; Duration: 30 day(s) Active Fenofibric Acid 135 MG TAKE ONE CAPSULE BY MOUTH ONCE A DAY Active Clotrimazole 1 % 1 application [employer] ally Twice a day 11/14/2024 Active Social History Tobacco Use: Social History Observation Description Date Details (start date - stop date) Former Smoker NA - NA CURRENT TOBACCO USE: Question Answer Notes Are you a: former smoker quit 1991 Problems Problem Type SNOMED Code ICD Code Onset Dates Problem Status W/U Status Risk Notes Problem Vitamin D deficiency (71402901) Vitamin D deficiency (E55.9) Active confirmed Vital Signs Weight 162.4 lbs 11/14/2024 Blood pressure systolic 122 mm Hg 11/15/19 25 Blood pressure diastolic 60 mm Hg 025 Heart Rate 70 /min 11/14/2024 Height 67 in 11/14/2024 BMI 25.43 kg/m2 11/14/2024 Encounters Encounter Location Date Provider Diagnosis [facility] [address] [facility] [address] [place] [address], [place] [id number] 11/14/2024 Anai Richey Acquired hypothyroid ism E03.9 ; Dyslipidemia E78.5 ; Essential hypertension I10 ; Hyperuricemia E79.0 ; Chronic obstructive pulmonary disease, unspecified COPD type J44.9 ; Coronary artery disease, unspecified vessel or lesion type, unspecified whether angina present, unspecified whether jena or transplanted heart I25.10 ; Irritable bowel syndrome with constipation K58.1 ; BPH (benign prostatic hyperplasia) N40.0 ; Vitamin B12 deficiency E53.8 ; Vitamin D deficiency E55.9 ; Muscle cramps R25.2 ; Rash R21 and Other fatigue R53.83 Assessments Encounter Date Diagnosis (ICD Code) Assessment Notes Treatment Notes Treatment Clinical Notes Section Notes 11/14/2024 Acquired hypothyroidism (ICD-10 - E03.9) 11/14/2024 Dyslipidemia (ICD-10 - E78.5) 11/14/2024 Essential hypertension (ICD-10 - I10) 11/14/2024 Hyperuricemia (ICD-10 - E79.0) 11/14/2024 Chronic obstructive pulmonary disease, unspecified COPD type (ICD-10 - J44.9) 11/14/2024 Coronary artery disease, unspecified vessel or lesion type, unspecified whether angina present, unspecified whether jena or transplanted heart (ICD-10 - I25.10) 11/14/2024 Irritable bowel syndrome with constipation (ICD-10 - K58.1) 11/14/2024 BPH (benign prostatic hyperplasia) (ICD-10 - N40.0) 11/14/2024 Vitamin B12 deficiency (ICD-10 - E53.8) 11/14/2024 Vitamin D deficiency (ICD-10 - E55.9) 11/14/2024 Muscle cramps (ICD-10 - R25.2) 11/14/2024 Rash (ICD-10 - R21) 11/14/2024 Other fatigue (ICD-10 - R53.83) Patient is not able to eat much on the wegovy. He has backed the dose down but still has no appetite and feels fatigued all the time. Will stop it and see if this improves. Plan Of Treatment Medication Medication Name Sig Start Date Stop Date Notes Wegovy 0.5 MG/0.5ML 0.5 mL Subcutaneous 10/23/2024 Clotrimazole 1 % 1 application Externally Twice a day 02/2025 Treatment Notes Assessment Notes Other fatigue Patient is not able to eat much on the wegovy. He has backed the dose down but still has no appetite and feels fatigued all the time. Will stop it and see if this improves. Next Appt Details Follow Up: via phone to repo rt test results, Reason: Progress Notes * PERLA VAUGHNDOB:1950 (74 yo M)Acc No.[id number]:11/14/2024 Progress Notes Patient: PERLA HU Provider: JOSEE Espinal :1950 A ge:74 Y S ex:Male Date:11/14/2024 Address:[address] [place] [address], [id number] Pcp:Vlaerio Dior Subjective: * Chief Complaints: * 1 . Rash, not feeling well, no energy. * HPI: D ermatology: 74 year old male presents with c/o rash P t presents today with c/o rash on the lower abdomen that runs down into his groin area. Pt sts that the rash has been present for about 6 weeks. Pt sts that it does not itch, denies any bumps and/or blisters. C onstitutional: c/o fatigue P t sts that he feels very fatigued and has little to no energy. Pt sts that he has felt like this for a couple of months and associates this with the Wegovy. G astroenterology: c/o Constipation P t sts that he is also having issues having bowel movements as well. * ROS: C ARDIOLOGY: no D izziness. n o C hest pain. G ASTROENTEROLOGY: no N ausea. n o V omiting. U ROLOGY: no D ifficulty urinating. n [...] Diagno stic Procedure: a lola surgeries , [facility]-kidney stone 08/2017, [facility] ER - kidney stone 01/02/2021. * Family [...] beers a day. * Medications: T aking Atorvastatin Calcium 40 MG Tablet 1 tablet Orally Once a day , Taking Breztri Aerosphere 160-9-4.8 MCG/ACT Aerosol 2 puffs Inhalation Twice a day , Taking Repatha 140 MG/ML Solution Prefilled Syringe 1 mL Subcutaneous , Taking Fenofibric Acid 135 MG Capsule Delayed Release TAKE ONE CAPSULE BY MOUTH ONCE A DAY , Taking clonazePAM 1 MG Tablet 1 tab(s) orally Two times a day , Taking Linzess 290 MCG Capsule 1 capsule at least 30 minutes before the first meal of the day on an empty stomach Orally Once a day , Taking Wegovy 0.5 MG/0.5ML Solution Auto-injector 0.5 mL Subcutaneous , Taking Levothyroxine Sodium 100 MCG Tablet 1 tablet in the morning on an empty stomach Orally Once a day , Taking Albuterol Sulfate HFA 108 (90 Base) MCG/ACT Aerosol Solution 1 puff as needed Inhalation every 4 hrs, prn , Medication List reviewed and reconciled with the patient * Allergies: C odeine: rash - Allergy, Incruse Ellipta: wheezing worse. Objective: * Vitals: W t:162.4, Temp:98.2, BP:122/60, HR:70, O2 Sat:98% on RA, Nurse:CUATE, Ht: 67, BMI:25.43. * Examination: G eneral Examination: General Appearance: N AD. H EENT: u nremarkable.?Oral cavity: n o lesions, mucosa moist and WNL, no erythema. N thu: s upple, no lymphadenopathy. C hest: n ormal shape and expansion. H eart: R SR. L ungs: c lear to auscultation. A bdomen: bowel sounds present, soft and nontender, no organomegaly or masses, no guarding or rigidity. N eurologic Exam: I ntact, gait normal. S kin: n ormal, erythematous scaly rash in the groin area. P eripheral pulses: n ormal (2+) bilaterally. E xtremities: n o leg edema. Assessment: * Assessment: 1. A cquired hypothyroidism - E03.9 (Primary) 2 . D yslipidemia - E78.5? 3. E ssential hypertension - I10 4 . H yperuricemia - E79.0? 5. C hronic obstructive pulmonary disease, unspecified COPD type - J44.9 & #160; 6 . C oronary artery disease, unspecified vessel or lesion type, unspecified whether angina present, unspecified whether jena or transplanted heart - I25.10 7 . I rritable bowel syndrome with constipation - K58.1 8 . B PH (benign prostatic hyperplasia) - N40.0 9 . V itamin B12 deficiency - E53.8 1 0. V itamin D deficiency - E55.9 1 1. M uscle cramps - R25.2 1 2. R armand - R21 1 3. O ther fatigue - R53.83 Plan: * Treatment: Value Reference Range T hyroxine Free (free T4) 2.11 H 0.86-1.76 - ng/d L * Ania Richey 11/15/2024 3:5 4:44 PM > see TE ?LAB: P-TSH (Collection Date & Time - 11/14/2024 09:00 AM)?0.25* Value Reference Range T SH 0.25 L 0.43-5.25 - mU/L * KaidenAnia Willow 11/15/2024 3:5 4:44 PM > see TE 2.?Dyslipidemia?LAB: P-Lipid Panel (Collection Date & Time - 11/14/2024 09:00 AM)?hdl 35* Value Reference Range C holesterol / HDL Ratio 2.09 0.00-4.99 - Ratio * C holesterol 73 <200 - mg/dL * H DL Cholesterol 35 L >39 - mg/dL * L DL Cholesterol (Calculation) 20 <130 - mg/d L * L DL/HDL Ratio 0.6 <3.3 - Ratio * N on-HDL Cholesterol 38 <130 - mg/dL * T riglycerides 91 <150 - mg/dL * KaidenAleksandrmag Daugherty 11/15/2024 3:5 4:44 PM > see TE 3.?Essential hypertension?LAB: P-Comprehensive Metabolic Panel (CMP) (Collection Date & Time - 11/14/2024 09:00 AM)?Normal* Value Reference Range A /G Ratio 2.2 1.1-2.5 - * A lbumin 4.1 3.5-5.3 - g/dL * A lkaline Phosphatase 76 40-129 - IU/L * A LT (SGPT) 26 <5-55 - IU/L * A ST (SGOT) 28 <5-46 - IU/L * B ilirubin, Total 0.4 <0.2-1.2 - mg/dL * B UN 23 8-23 - mg/dL * C alcium 9.3 8.6-10.4 - mg/dL * C hloride 106 97-108 - mmol/L * C O2 28 22-32 - mmol/L * C reatinine 1.16 0.70-1.30 - mg/dL * G lucose 75 65-99 - mg/dL * P otassium 4.4 3.5-5.3 - mmol/L * S odium 143 135-145 - mmol/L * P rotein 6.0 6.0-8.3 - g/dL * e GFR by Creatinine 65 >59 - mL/min/1.73m2 * KaidenAnia S 11/15/2024 3:5 4:44 PM > see TE ?LAB: CBC Venipuncture (in house) (Collection Date & Time - 11/14/2024)* Value Reference Range w bc 5.1 3.5 - 10 * l ymph 23.9 15 - 50 * m id 6.2 2 - 15 * g ran 69.9 35 - 80 * r bc 5.41 3.5 - 5.5 * h gb 15.5 11.5 - 16.5 * h ct 47.8 35 - 55 * m cv 88.2 75 - 100 * m ch 28.7 25 - 35 * m chc 32.5 31 - 38 * p latlet 203 100 - 400 * TommyShirlene 11/14/2024 11:52 :16 AM >Ania Richey 11/14/2024 1:58:37 PM > 4.?Hyperuricemia?LAB: P-Uric Acid (Collection Date & Time - 11/14/2024 09:00 AM)?Normal* Value Reference Range U kale Acid 5.7 3.4-8.0 - mg/dL * Ania Richey 11/15/2024 3:5 4:44 PM > see TE 5.?BPH (benign prostatic hyperplasia)?LAB: P-PSA (Collection Date & Time - 11/14/2024 09:00 AM)?Normal* Value Reference Range P SA 2.04 <4.00 - ng/mL * Ania Richey 11/15/2024 3:5 4:44 PM > see TE 6.?Vitamin B12 deficiency?LAB: P-Vitamin B12 (Collection Date & Time - 11/14/2024 09:00 AM)?Normal* Value Reference Range V itamin B12 333 550-1426 - pg/mL * Ania Richey 11/15/2024 3:5 4:44 PM > see TE 7.?Vitamin D deficiency?LAB: P-Vitamin D 25-Hydroxy (Collection Date & Time - 11/14/2024 09:00 AM)? 28.6* Value Reference Range V itamin D 25-Hydroxy 28.6 L 30.0-100.0 - ng/mL * Ania Richey 11/15/2024 3:5 4:44 PM > see TE 8.?Muscle cramps?LAB: P-Magnesium (Collection Date & Time - 11/14/2024 09:00 AM)?Normal* Value Reference Range M agnesium 1.9 1.6-2.4 - mg/dL * KaidenAnia 11/15/2024 3:5 4:44 PM > see TE 9.?Rash? Start Clotrimazole Cream, 1 %, 1 application, Externally, Twice a day, 60 grams, Refills 1.? 10.?Other fatigue? Stop Wegovy Solution Auto-injector, 0.5 MG/0.5ML, 0.5 mL, Subcutaneous.?? Notes: Patient is not able to eat much on the wegovy. He has backed the dose down but still has no appetite and feels fatigued all the time. Will stop it and see if this improves.?? * Procedure Codes: G 2211 Complex e/[place] [address] [place], [address] CBC WITH AUTO DIFF, 27601 VENIPUNCT, ROUTINE*, 3074F SYST BP LT 130 MM HG, 3078F DIAST BP < 80 MM HG * Follow Up: v ia phone to report test results * Images: Billing Information: * Visit Code: 37405 Office Visit, Est Pt., Level 4. * Procedure Codes: G2211 Complex e/[place]. [address] [place]. [address] CBC WITH AUTO DIFF. 70501 VENIPUNCT, ROUTINE*. 3074F SYST BP LT 130 MM HG. 3078F DIAST BP < 80 MM HG. * Electronic signature of JOSEE Maria on 08/28/2025 at 11:53 AM EST Sign off status: Pending * Provider: JOSEE Espinal Date: 0 11/14/2024 Generated for Antwan negrete/Eliseo/[place]inton on: 1 10/29/2024 11:53 AM EST History and Physical Notes * HPI (History of Present Illness) Category Sub-Category Detail Notes Category Not es Dermatology rash Pt presents toda y with c/o rash on the lower abdomen that runs down into his groin area. Pt sts that the rash has been present for about 6 weeks. Pt sts that it does not itch, denies any bumps and/or blisters Gastroenterology Constipation Pt sts that he is also having issues having bowel movements as well Constitutional fatigue Pt sts that he f eels very fatigued and has little to no energy. Pt sts that he has felt like this for a couple of months and associates this with the Bo Examination Category Sub-Category Detail Notes Category Not es General Examination HEENT: unremarkable Heart: RSR Lungs: clear to auscultatio n Abdomen: bowel sounds present , soft and nontender, no organomegaly or masses, no guarding or rigidity Extremities: no leg edema General Appearance: NAD Skin: normal, erythematous scaly rash in the groin area Neurologic Exam: Intact, gait normal Neck: supple, no lymphaden opathy Oral cavity: no lesions, mucosa m oist and WNL, no erythema Peripheral pulses: normal (2+) bilatera lly Chest: normal shape and exp ansion
--- OUTSIDE RECORDS SUMMARY | 2024-12-27 04:15 | XMS_ITS ---
Author Organization [facility] Address [address] [place], [place] [id number] Care Team Providers Care Court Orderly Name Role Phone Valerio Dior Primary Care Provider Ania Richey Unavailable [phone] Allergies Allergen (clinical drug ingredient) Drug/Non Drug Allergy documented on EMR Reaction Allergy Type Onset Date Status umeclidinium Incruse Ellipta wheezing worse Drug Allergy Active codeine Codeine rash Drug Allergy Active Results Component Value Reference Range Notes CBC Fingerstick (in house) Reviewed date:12/27/2024 04:14:21 PM Interpretation: Performing Lab: Notes/Report: wbc 10.8 3.5 - 10 lym 17.4 15 - 50 mid 5.6 2 - 15 gran 77.0 35 - 80 rbc 5.42 3.5 - 5.5 hgb 15.7 11.5 - 16.5 hct 48.2 35 - 55 mcv 88.9 75 - 100 mch 28.9 25 - 35 mchc 32.5 31 - 38 plat 190 100 - 400 REASON FOR VISIT sick Medications Medication SIG (Take, Route, Frequency, Duration) Notes Start Date End Date Status Linzess 290 mcg TAKE 1 CAPSULE BY [facility] EVERY MORNING ON AN EMPTY STOMACH AT LEAST 30 MINUTES BEFORE BREAKFAST; Duration: 30 Active Wegovy 0.25 MG/0.5ML 0.25 mg Subcutaneou s once a week 12/18/2024 Active Levothyroxine Sodium 88 MCG 1 tablet Ora lly Once a day; Duration: 90 days 11/15/2024 Active Atorvastatin Calcium 40 MG 1 tablet Oral ly Once a day; Duration: 90 days Active Clotrimazole 1 % 1 application Formula Weigher ally Twice a day 11/14/2024 Active Breztri Aerosphere 160-9-4.8 MCG/ACT 2 puffs Inhalation Twice a day Active Repatha 140 MG/ML 1 mL Subcutaneous; Duration: 30 day(s) Active Fenofibric Acid 135 MG TAKE ONE CAPSULE BY MOUTH ONCE A DAY Active clonazePAM 1 MG 1 tab(s) orally Two times a day; Duration: 30 days 08/23/2024 Active Albuterol Sulfate HFA 108 (90 Base) MCG/ACT 1 puff as needed Inhalation every 4 hrs, prn 05/24/2024 Active Amoxicillin-Pot Clavulanate 875-125 MG 1 tablet Orally every 12 hrs; Duration: 7 days 12/27/2024 Active Social History Tobacco Use: Social History Observation Description Date Details (start date - stop date) Former Smoker NA - NA CURRENT TOBACCO USE: Question Answer Notes Are you a: former smoker quit 1991 Vital Signs Weight 160.4 lbs 12/27/2024 Blood pressure systolic 116 mm Hg 12/28/19 25 Blood pressure diastolic 70 mm Hg 025 Heart Rate 75 /min 12/27/2024 Height 67 in 12/27/2024 BMI 25.12 kg/m2 12/27/2024 Encounters Encounter Location Date Provider Diagnosis [facility] [address] [phone] 12/27/2024 Ania Richey Acute URI J06.9 ; BM I 25.0-25.9,adult Z68.25 and Anxiety F41.9 Assessments Encounter Date Diagnosis (ICD Code) Assessment Notes Treatment Notes Treatment Clinical Notes Section Notes 12/27/2024 Acute URI (ICD-10 - J06.9) 12/27/2024 BMI 25.0-25.9,adult (ICD-10 - Z68.25) 12/27/2024 Anxiety (ICD-10 - F41.9) Plan Of Treatment Medication Medication Name Sig Start Date Stop Date Notes Amoxicillin-Pot Clavulanate 875-125 MG 1 tablet Orally every 12 hrs; Duration: 7 days 12/27/2024 Next Appt Details Follow Up: prn, Reason: Progress Notes * NANCY VAUGHN:1950 (74 yo M)Acc No.[id number]:12/27/2024 Progress Notes Patient: PERLA HU Provider: JOSEE Espinal :1950 A ge:74 Y S ex:Male Date:12/27/2024 Address:[address] [place] [address], [id number] Pcp:Valerio Dior Subjective: * Chief Complaints: * 1 . Sick. * HPI: E NT/respiratory: 74 year old male presents with c/o sore throat P t sts it feels like his lymph nodes are swollen in his neck as well. c/o cough P t sts he has been coughing and blowing out greenish/yellow sputum. c/o nasal congestion. c/o Fever. c/o ear pain. c/o headache. Denies : body aches. Pt sts his symptoms started a couple of days ago. * ROS: C ARDIOLOGY: no D izziness. [...] Diagno stic Procedure: a lola surgeries , [facility]-kidney stone 08/2017, [facility] - kidney stone 01/02/2021. * [...] beers a day. * Medications: T aking Breztri Aerosphere 160-9-4.8 MCG/ACT Aerosol 2 puffs Inhalation Twice a day , Taking Repatha 140 MG/ML Solution Prefilled Syringe 1 mL Subcutaneous , Taking Fenofibric Acid 135 MG Capsule Delayed Release TAKE ONE CAPSULE BY MOUTH ONCE A DAY , Taking clonazePAM 1 MG Tablet 1 tab(s) orally Two times a day , Taking Albuterol Sulfate HFA 108 (90 Base) MCG/ACT Aerosol Solution 1 puff as needed Inhalation every 4 hrs, prn , Taking Clotrimazole 1 % Cream 1 application Externally Twice a day , Taking Levothyroxine Sodium 88 MCG Tablet 1 tablet Orally Once a day , Taking Atorvastatin Calcium 40 MG Tablet 1 tablet Orally Once a day , Taking Linzess 290 mcg Capsule TAKE 1 CAPSULE BY MOUTH EVERY MORNING ON AN EMPTY STOMACH AT LEAST 30 MINUTES BEFORE BREAKFAST , Taking Wegovy 0.25 MG/0.5ML Solution Auto-injector 0.25 mg Subcutaneous once a week , Medication List reviewed and reconciled with the patient * Allergies: C odeine: rash - Allergy, Incruse Ellipta: wheezing worse. Objective: * Vitals: W t: 160.4, Temp: 98.7, BP: 116/70, HR: 75, Nurse: phill, Ht: 67, BMI:25.12. * Examination: E NT/Respiratory: General Appearance: N AD. E ars: a uditory canals normal bilaterally, TM's WNL. N ose : t urbinates red, congested. S inuses : tender maxillary sinuses bilaterally. O ral cavity : erythema without exudate on pharynx. N thu : supple, bilateral tender lymphadenopathy. H eart : RRR. L ungs: CTAB A&P. Assessment: * Assessment: 1. A cute URI - J06.9 (Primary) 2 . B MS 25.0-25.9,adult - Z68.25 ? 3 . A nxiety - F41.9 Plan: * Treatment: Value Reference Range w bc 10.8 3.5 - 10 * l ym 17.4 15 - 50 * m id 5.6 2 - 15 * g ran 77.0 35 - 80 * r bc 5.42 3.5 - 5.5 * h gb 15.7 11.5 - 16.5 * h ct 48.2 35 - 55 * m cv 88.9 75 - 100 * m ch 28.9 25 - 35 * m chc 32.5 31 - 38 * p lat 190 100 - 400 * Dotty Moss 12/27/2024 09:2 3:51 AM > Provider reviewed results while patient in office.Ania Richey 12/27/2024 4:14:17 PM > * Procedure Codes: G 2211 Complex e/[place] [address] CAPILLARY BLOOD DRAW, 94423 CBC WITH AUTO DIFF, 3074F SYST BP LT 130 MM HG, 3078F DIAST BP < 80 MM HG * Follow Up: p rn * Images: Billing Information: * Visit Code: 58306 Office Visit, Est Pt., Level 3. * Procedure Codes: G2211 Complex e/[place]. [address] CAPILLARY BLOOD DRAW. 15709 CBC WITH AUTO DIFF. 3074F SYST BP LT 130 MM HG. 3078F DIAST BP < 80 MM HG. * Electronic signature of JOSEE Maria on 08/28/2025 at 11:51 AM EST Sign off status: Pending * Provider: JOSEE Espinal Date: 0 12/27/2024 Generated for Antwan negrete/Eliseo/Deirdreitting on: 1 10/29/2024 11:51 AM EST History and Physical Notes * HPI (History of Present Illness) Category Sub-Category Detail Notes Category Not es ENT/respiratory sore throat Pt sts it feels like his lymph nodes are swollen in his neck as well Pt sts his symptoms started a couple of days ago ear pain cough Pt sts he has been c oughing and blowing out greenish/yellow sputum Fever headache nasal congestion body aches Examination Category Sub-Category Detail Notes Category Not es ENT/Respiratory Oral cavity : erythema without exudate on pharynx Sinuses : tender maxillary sin uses bilaterally Ears: auditory canals norm al bilaterally, TM's WNL Neck : supple, bilateral te nder lymphadenopathy Heart : RRR Lungs: CTAB A&P General Appearance: NAD Nose : turbinates red, suzi ested
--- OUTSIDE RECORDS SUMMARY | 2025-01-22 05:45 | XMS_ITS ---
Author Organization [facility] Address [address] [place], [place] [address] Care Team Providers Care Sales Assistants And Salespersons Name Role Phone Valerio Dior Primary Care Provider Ania Richey Unavailable [phone] Allergies Allergen (clinical drug ingredient) Drug/Non Drug Allergy documented on EMR Reaction Allergy Type Onset Date Status umeclidinium Incruse Ellipta wheezing worse Drug Allergy Active codeine Codeine rash Drug Allergy Active Results Component Value Reference Range Notes CBC Fingerstick (in house) Reviewed date:01/23/2025 03:29:18 PM Interpretation: Performing Lab: Notes/Report: wbc 6.4 3.5 - 10 lym 32.5 15 - 50 mid 6.5 2 - 15 gran 61.0 35 - 80 rbc 5.21 3.5 - 5.5 hgb 14.9 11.5 - 16.5 hct 46.1 35 - 55 mcv 88.5 75 - 100 mch 28.5 25 - 35 mchc 32.3 31 - 38 plat 154 100 - 400 REASON FOR VISIT ear hurting ,congestion Medications Medication SIG (Take, Route, Frequency, Duration) Notes Start Date End Date Status Wegovy 0.5 MG/0.5ML 0.5 mg Subcutaneous once a week; Duration: 30 days 01/16/2025 Active clonazePAM 1 MG 1 tab(s) orally Two times a day; Duration: 30 days 01/06/2025 Active Fenofibric Acid 135 MG TAKE ONE CAPSULE BY MOUTH ONCE A DAY Active Linzess 290 mcg TAKE 1 CAPSULE BY [facility] EVERY MORNING ON AN EMPTY STOMACH AT LEAST 30 MINUTES BEFORE BREAKFAST; Duration: 30 Active Albuterol Sulfate HFA 108 (90 Base) MCG/ACT 1 puff as needed Inhalation every 4 hrs, prn 05/24/2024 Active Repatha 140 MG/ML 1 mL Subcutaneous; Duration: 30 day(s) Active Atorvastatin Calcium 40 MG 1 tablet Oral ly Once a day; Duration: 90 days Active Levothyroxine Sodium 88 MCG 1 tablet Ora lly Once a day; Duration: 90 days 11/15/2024 Active Clotrimazole 1 % 1 application Rn House Supervisor ally Twice a day 11/14/2024 Active Breztri Aerosphere 160-9-4.8 MCG/ACT 2 puffs Inhalation Twice a day Active Benzonatate 200 MG 1 capsule Orally Thr ee times a day, prn 01/22/2025 Active Social History Tobacco Use: Social History Observation Description Date Details (start date - stop date) Former Smoker NA - NA CURRENT TOBACCO USE: Question Answer Notes Are you a: former smoker quit 1991 Vital Signs Weight 161.8 lbs 01/22/2025 Blood pressure systolic 116 mm Hg 01/23/20 25 Blood pressure diastolic 60 mm Hg 025 Heart Rate 62 /min 01/22/2025 Height 67 in 01/22/2025 BMI 25.34 kg/m2 01/22/2025 Encounters Encounter Location Date Provider Diagnosis [facility] [facility] [address] [phone] 01/22/2025 Ania Richey Acute URI J06.9 Assessments Encounter Date Diagnosis (ICD Code) Assessment Notes Treatment Notes Treatment Clinical Notes Section Notes 01/22/2025 Acute URI (ICD-10 - J06.9) Plan Of Treatment Medication Medication Name Sig Start Date Stop Date Notes Benzonatate 200 MG 1 capsule Orally Three times a day, prn 01/22/2025 Next Appt Details Follow Up: prn, Reason: Progress Notes * PERLA VAUGHNDOB:1950 (74 yo M)Acc No.[id number]:01/22/2025 Progress Notes Patient: PERLA HU Provider: JOSEE Espinal :1950 A ge:74 Y S ex:Male Date:01/22/2025 Address:[address] [place] [address], [place], [id number] Pcp:Valerio Dior Subjective: * Chief Complaints: * 1 . Ear hurting ,congestion. * HPI: E NT/respiratory: 74 year old male presents with c/o cough P t c/o cough and chest congestion. Pt sts that he has a lot of post nasal drainage and c/o watery eyes. Pt sts that he is not able to produce much from his lungs. Pt sts that he has been like this for about a week.? c/o ear pain P t c/o pain in the left ear. * ROS: C ARDIOLOGY: no D izziness. [...] Diagno stic Procedure: a lola surgeries , [facility]-kidney stone 08/2017, [facility] ER - kidney stone 01/02/2021. [...] of beers a day. * Medications: T nona Reynosoztri Aerosphere 160-9-4.8 MCG/ACT Aerosol 2 puffs Inhalation Twice a day , Taking Repatha 140 MG/ML Solution Prefilled Syringe 1 mL Subcutaneous , Taking Albuterol Sulfate HFA 108 (90 [...] LEAST 30 MINUTES BEFORE BREAKFAST , Taking Fenofibric Acid 135 MG Capsule Delayed Release TAKE ONE CAPSULE BY MOUTH ONCE A DAY , Taking clonazePAM 1 MG Tablet 1 tab(s) orally Two times a day , Taking Wegovy 0.5 MG/0.5ML Solution Auto-injector 0.5 mg Subcutaneous once a week , Discontinued Amoxicillin-Pot Clavulanate 875-125 MG Tablet 1 tablet Orally every 12 hrs , Medication List reviewed and reconciled with the patient * Allergies: C odeine: rash - Allergy, Incruse Ellipta: wheezing worse. Objective: * Vitals: W t: 161.8, Temp: 98.0, BP: 116/60, HR: 62, O2 Sat: 98% on RA, Nurse: CUATE, Ht: 67, BMI:25.34. * Examination: E NT/Respiratory: General Appearance: N AD. E ars: a uditory canals normal bilaterally, TM's WNL. N ose : turbinates red, congested. S inuses : tender maxillary sinuses bilaterally. O ral cavity : n o erythema or exudate seen on pharynx. Neck : n o cervical lymphadenopathy. H eart : R RR, normal S1 S2, no murmurs. L ungs: c lear to auscultation bilaterally. Assessment: * Assessment: 1. Audrey alicia URI - J06.9 (Primary) Plan: * Treatment: Value Reference Range w bc 6.4 3.5 - 10 * l ym 32.5 15 - 50 * m id 6.5 2 - 15 * g ran 61.0 35 - 80 * r bc 5.21 3.5 - 5.5 * h gb 14.9 11.5 - 16.5 * h ct 46.1 35 - 55 * m cv 88.5 75 - 100 * m ch 28.5 25 - 35 * m chc 32.3 31 - 38 * p lat 154 100 - 400 * TommyShilrene lee 01/22/2025 10: 57:02 AM > results reviewed w/ pt in office * Procedure Codes: G 2211 Complex e/[place], [address] CAPILLARY BLOOD DRAW, 97850 CBC WITH AUTO DIFF * Follow Up: p rn * Images: Billing Information: * Visit Code: 24914 Office Visit, Est Pt., Level 3. * Procedure Codes: G2211 Complex e/[place]. [address] CAPILLARY BLOOD DRAW. 27562 CBC WITH AUTO DIFF. * Electronic signature of JOSEE Maria on 08/28/2025 at 11:53 AM EST Sign off status: Pending * Provider: JOSEE Espinal Date: 0 01/22/2025 Generated for Antwan negrete/Eliseo/Deirdreitting on: 1 10/29/2024 11:53 AM EST History and Physical Notes * HPI (History of Present Illness) Category Sub-Category Detail Notes Category Not es ENT/respiratory ear pain Pt c/o pain in the left e ar cough Pt c/o cough and craig st congestion. Pt sts that he has a lot of post nasal drainage and c/o watery eyes. Pt sts that he is not able to produce much from his lungs. Pt sts that he has been like this for about a week Examination Category Sub-Category Detail Notes Category Not es ENT/Respiratory Oral cavity : no erythema or exudate s een on pharynx Sinuses : tender maxillary sin uses bilaterally Ears: auditory canals norm al bilaterally, TM's WNL Neck : no cervical lymphade nopathy Heart : RRR, normal S1 S2, n o murmurs Lungs: clear to auscultatio n bilaterally General Appearance: NAD Nose : turbinates red, suzi ested
--- OUTSIDE RECORDS SUMMARY | 2025-01-29 03:50 | XMS_ITS ---
Author Organization [facility] Address [address] [facility] [address] [place] [phone] Care Team Providers Care Service Line Coordinator Name Role Phone Valerio Dior Primary Care Provider [phone] ShirazAleksandr stephena Unavailable [phone] Results Component Value Reference Range Notes P-Vitamin B12 Reviewed date:01/30/2025 12:48:51 PM Interpretation: Performing Lab: Notes/Report: Test performed by [facility] [address] [place] [address] , [address], [place] [address] Marino Bullock MD, Benzene Operator CLIA: [id number] Vitamin B12 365 989-2733 pg/mL P-T4 Free (thyroxine) Reviewed date:01/30/2025 12:48:51 PM Interpretation: Performing Lab: Notes/Report: Test performed by [facility] [address] [place] [address] , [address], [place] [address] Marino Bullock MD, Benzene Operator CLIA: [id number] Thyroxine Free (free T4) 1.47 0.86-1.76 ng/dL P-TSH Reviewed date:01/30/2025 12:48:51 PM Interpretation: Performing Lab: Notes/Report: Test performed by [facility] [address] [place] [address] , [address], [place] [address] Marino Bullock MD, Benzene Operator CLIA: [id number] TSH 4.15 0.43-5.25 mU/L P-Vitamin D 25-Hydroxy Reviewed date:01/30/2025 12:48:51 PM Interpretation: Performing Lab: Notes/Report: Test performed by [facility] , [address], [place] [address] Marino Bullock MD, Benzene Operator CLIA: [id number] Vitamin D 25-Hydroxy 47.6 30.0-100.0 ng/mL Interpretation of Vitamin D 25 OH: < 20 ng/mL - Deficiency 20 - 29 ng/mL - Insufficiency 30 - 100 ng/mL - Sufficiency > 100 ng/mL - Super-therapeutic- toxicity may occur above this level. Clinical correlation required. 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 ; History of thyroid cancer Z85.850 and Vitamin B12 deficiency E53.8 Assessments Encounter Date Diagnosis (ICD Code) Assessment Notes Treatment Notes Treatment Clinical Notes Section Notes 01/29/2025 Vitamin D deficiency (ICD-10 - E55.9) 01/29/2025 Hypothyroidism, postsurgical (ICD-10 - E89.0) 01/29/2025 History of thyroid cancer (ICD-10 - Z85.850) 01/29/2025 Vitamin B12 deficiency (ICD-10 - E53.8) Plan Of Treatment No Information Progress Notes * PERLA KANGDOB:1950 (74 yo M)Acc No.[id number]:01/29/2025 Patient: PERLA HU Provider: JOSEE Espinal :1950 A ge:74 Y S ex:Male Date:01/29/2025 Address:[address] [place], [place] [address], [facility] Pcp:Valerio Dior Subjective: * Chief Complaints: * 1 . Bloodwork. * Medical History: Objective: * Vitals: Assessment: * Assessment: 1. V itamin D deficiency - E55.9 2 . H ypothyroidism, postsurgical - E89.0? 3. H istory of thyroid cancer - Z85.850 4 . V itamin B12 deficiency - E53.8 Plan: * Treatment: Value Reference Range V itamin D 25-Hydroxy 47.6 30.0-100.0 - ng/mL * Shirazzafar Ania Willow 01/30/2025 1 2:48:44 PM >see TE 2.?Hypothyroidism, postsurgical?LAB: P-T4 Free (thyroxine) (Collection Date & Time - 01/29/2025 08:07 AM)* Value Reference Range T hyroxine Free (free T4) 1.47 0.86-1.76 - ng/d L * Ania Richey 01/30/2025 1 2:48:44 PM >see TE ?LAB: P-TSH (Collection Date & Time - 01/29/2025 08:07 AM)* Value Reference Range T SH 4.15 0.43-5.25 - mU/L * ShirazAnia stephen Willow 01/30/2025 1 2:48:44 PM >see TE 3.?History of thyroid cancer?LAB: P-T4 Free (thyroxine) (Collection Date & Time - 01/29/2025 08:07 AM)* Value Reference Range T hyroxine Free (free T4) 1.47 0.86-1.76 - ng/d L * ShirazAleksandr stephenmag Daugherty 01/30/2025 1 2:48:44 PM >see TE ?LAB: P-TSH (Collection Date & Time - 01/29/2025 08:07 AM)* Value Reference Range T SH 4.15 0.43-5.25 - mU/L * Ania Richey [place]ow 01/30/2025 1 2:48:44 PM >see TE 4.?Vitamin B12 deficiency?LAB: P-Vitamin B12 (Collection Date & Time - 01/29/2025 08:07 AM)* Value Reference Range V itamin B12 250 183-1161 - pg/mL * Ania Richey [place]ow 01/30/2025 1 2:48:44 PM >see TE * Images: Billing Information: * Visit Code: * Procedure Codes: * Electronic signature of JOSEE Maria on 08/28/2025 at 11:52 AM EST Sign off status: Pending * Provider: JOSEE Espinal Date: 0 01/29/2025 Generated for Antwan negrete/Eilseo/[place] on: 1 10/29/2024 11:52 AM EST
--- OUTSIDE RECORDS SUMMARY | 2025-02-26 05:00 | XMS_ITS ---
Author Organization [facility] Address [address] [facility] [address] [place] [id number] Care Team Providers Care Museum Exhibit Technician Name Role Phone Valerio Dior Primary Care Provider [phone] Ania Richey Unavailable [phone] Allergies Allergen (clinical drug ingredient) Drug/Non Drug Allergy documented on EMR Reaction Allergy Type Onset Date Status umeclidinium Incruse Ellipta wheezing worse Drug Allergy Active codeine Codeine rash Drug Allergy Active Results Component Value Reference Range Notes CT Scan : Abd and Pelvis w/ oral & IV contrast Reviewed date:03/11/2025 10:13:47 AM Interpretation: Performing Lab: Notes/Report: REASON FOR VISIT pain in right side Medications Medication SIG (Take, Route, Frequency, Duration) Notes Start Date End Date Status Fenofibric Acid 135 MG TAKE ONE CAPSULE BY MOUTH ONCE A DAY Active clonazePAM 1 MG 1 tab(s) orally Two times a day; Duration: 30 days 01/06/2025 Active Clotrimazole 1 % 1 application Externally Twice a day 11/14/2024 Active Linzess 290 mcg TAKE 1 CAPSULE BY [facility] EVERY MORNING ON AN EMPTY STOMACH AT LEAST 30 MINUTES BEFORE BREAKFAST; Duration: 30 Active Albuterol Sulfate HFA 108 (90 Base) MCG/ACT 1 puff as needed Inhalation every 4 hrs, prn 05/24/2024 Active Benzonatate 200 MG 1 capsule [address] Thr ee times a day, prn 01/22/2025 Not-Taking Levothyroxine Sodium 88 mcg TAKE ONE TABLET BY MOUTH ONCE A DAY; Duration: 30 Active Atorvastatin Calcium 10 mg TAKE ONE TABLET BY MOUTH ONCE A DAY; Duration: 30 Active Breztri Aerosphere 160-9-4.8 MCG/ACT 2 puffs Inhalation Twice a day Active Repatha 140 MG/ML 1 mL Subcutaneous; Duration: 30 day(s) Active Wegovy 0.5 MG/0.5ML 0.5 mg Subcutaneous once a week; Duration: 30 days 01/16/2025 Active Social History Tobacco Use: Social History Observation Description Date Details (start date - stop date) Former Smoker NA - NA CURRENT TOBACCO USE: Question Answer Notes Are you a: former smoker quit 1991 Vital Signs Weight 160.8 lbs 02/26/2025 Blood pressure systolic 118 mm Hg 02/27/20 Blood pressure diastolic 64 mm Hg 025 Heart Rate 74 /min 02/26/2025 Height 67 in 02/26/2025 BMI 25.18 kg/m2 02/26/2025 Encounters Encounter Location Date Provider Diagnosis [facility] [address] [place], [place] [id number] 02/26/2025 Ania Richey Abdominal mass, unspecified abdominal location R19.00 and BMI 25.0-25.9,adult Z68.25 Assessments Encounter Date Diagnosis (ICD Code) Assessment Notes Treatment Notes Treatment Clinical Notes Section Notes 02/26/2025 Abdominal mass, unspecified abdominal location (ICD-10 - R19.00) 02/26/2025 BMI 25.0-25.9,adult (ICD-10 - Z68.25) Plan Of Treatment Next Appt Details Follow Up: via phone to repo rt test results, Reason: Progress Notes * PERLA VAUGHNDOB:1950 (74 yo M)Acc No.[id number]:02/26/2025 Progress Notes Patient: PERLA HU Provider: JOSEE Espinal :1950 A ge:74 Y S ex:Male Date:02/26/2025 Address:[address], [place] Pcp:Valerio Dior Subjective: * Chief Complaints: * 1 . Pain in right side. * HPI: H ip/Thigh: Pt is here today with c/o pain in his rt side. Pt sts the pain has been going on for a long time now. G astroenterology: Patient has had pain in his right mid to upper abdomen for a long time. He feels as if there is a mass that is growing. He had a previous surgery in this area as they thought he may have a tumor, but he says they found nothing there. * ROS: C ARDIOLOGY: no D izziness. [...] Diagno stic Procedure: a lola surgeries , [facility]-kidney stone 08/2017, [facility] - kidney stone 01/02/2021. * [...] couple of beers a day. * Medications: Abraham Grimm Aerosphere 160-9-4.8 MCG/ACT Aerosol 2 puffs Inhalation Twice a day , Taking Repatha 140 MG/ML Solution Prefilled Syringe 1 mL Subcutaneous , Taking Albuterol Sulfate HFA 108 (90 Base) MCG/ACT Aerosol Solution 1 puff as needed Inhalation every 4 hrs, prn , Taking Clotrimazole 1 % Cream 1 application Externally Twice a day , Taking Linzess 290 mcg [...] once a week , Taking Levothyroxine Sodium 88 mcg Tablet TAKE ONE TABLET BY MOUTH ONCE A DAY , Taking Atorvastatin Calcium 10 mg Tablet TAKE ONE TABLET BY MOUTH ONCE A DAY , Not-Taking Benzonatate 200 MG Capsule 1 capsule Orally Three times a day, prn , Medication List reviewed and reconciled with the patient * Allergies: C odeine: rash - Allergy, Incruse Ellipta: wheezing worse. Objective: * Vitals: W t: 160.8, Temp: 98.4, BP: 118/64, HR: 74, O2 Sat: 98% on RA, Nurse: phill, Ht: 67, BMI:25.18. * Examination: G eneral Examination: General Appearance: N AD. C hest: n ormal shape and expansion. H eart: R SR. L ungs: c lear to auscultation. A bdomen: b owel sounds present, soft, mass in the RMQ to RUQ that is ttp under a surgical scar. ? Assessment: * Assessment: 1. A bdominal mass, unspecified abdominal location - R19.00 (Primary) S pecify :right middle quadrant/right upper quadrant 2 . B OH 25.0-25.9,adult - Z68.25 Plan: * Treatment: * Procedure Codes: G 2211 Complex e/m visit add on, 1036F TOBACCO NON-USER, G8420 BMI<30 AND >=22 CALC & DOCU, G8783 BP SCR PRFRM RCMDD DEFIND SCR INTVL, G8752 MOST RECENT SYSTOLIC BP < 140MM HG, G8754 MOST RECENT DIASTOLIC BP < 90MM HG * Follow Up: v ia phone to report test results * Images: Billing Information: * Visit Code: 87976 Office Visit, Est Pt., Level 3. * Procedure Codes: G2211 Complex e/m visit add on. 1036F TOBACCO NON-USER. G8420 BMI<30 AND >=22 CALC & DOCU. G8783 BP SCR PRFRM RCMDD DEFIND SCR INTVL. G8752 MOST RECENT SYSTOLIC BP < 140MM HG. G8754 MOST RECENT DIASTOLIC BP < 90MM HG. * Electronic signature of JOSEE Maria on 08/28/2025 at 11:53 AM EST Sign off status: Pending * Provider: JOSEE Espinal Date: 0 02/26/2025 Generated for Ivannai caden/Deloresg/eTransmitting on: 1 10/29/2024 11:53 AM EST History and Physical Notes * HPI (History of Present Illness) Category Sub-Category Detail Notes Category Not es Hip/Thigh Pt is here toda y with c/o pain in his rt side. Pt sts the pain has been going on for a long time now Examination Category Sub-Category Detail Notes Category Not es General Examination Heart: RSR Lungs: clear to auscultatio n Abdomen: bowel sounds present , soft, mass in the RMQ to RUQ that is ttp under a surgical scar General Appearance: NAD Chest: normal shape and exp ansion
--- OUTSIDE RECORDS SUMMARY | 2025-07-23 04:45 | XMS_ITS ---
[facility] [address] [place], [place] [id number] Care Team Providers Care Imagery Analyst Name Role Phone Valerio Dior Primary Care Provider Ania Richey Unavailable [phone] Allergies Allergen (clinical drug ingredient) Drug/Non Drug Allergy documented on EMR Reaction Allergy Type Onset Date Status umeclidinium Incruse Ellipta wheezing worse Drug Allergy Active codeine Codeine rash Drug Allergy Active Results Component Value Reference Range Notes CBC Fingerstick (in house) Reviewed date:07/23/2025 02:02:18 PM Interpretation: Performing Lab: Notes/Report: wbc 7.0 3.5 - 10 lym 31.5 15 - 50 mid 6.9 2 - 15 gran 61.6 35 - 80 rbc 5.05 3.5 - 5.5 hgb 14.8 11.5 - 16.5 hct 45.6 35 - 55 mcv 90.2 75 - 100 mch 29.4 25 - 35 mchc 32.6 31 - 38 plat 185 100 - 400 REASON FOR VISIT dizzy, congested, ears Medications Medication SIG (Take, Route, Frequency, Duration) Notes Start Date End Date Status Atorvastatin Calcium 10 mg 1 tablet oral ly once a day; Duration: 30 days Active Fenofibric Acid 135 MG 1 capsule Orally Once a day; Duration: 90 days Active Linzess 290 mcg TAKE 1 CAPSULE BY [facility] EVERY MORNING ON an EMPTY stomach AT least 30 MINUTES BEFORE breakfast; Duration: 30 Active Levothyroxine Sodium 88 mcg 1 tablet ora lly once a day; Duration: 30 days Active clonazePAM 1 MG 1 tab(s) orally Two times a day; Duration: 30 days 04/28/2025 Active Repatha 140 MG/ML 1 mL Subcutaneous; Duration: 30 day(s) Active Albuterol Sulfate HFA 108 (90 Base) MCG/ACT 1 puff as needed Inhalation every 4 hrs, prn 05/24/2024 Active Clotrimazole 1 % 1 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 Twice a day 11/14/2024 Active Wegovy 0.25 MG/0.5ML 0.25 mg Subcutaneou s once a week 03/12/2025 Active Amoxicillin-Pot Clavulanate 875-125 MG 1 tablet Orally every 12 hrs; Duration: 7 days 07/23/2025 Active Breztri Aerosphere 160-9-4.8 MCG/ACT 2 puffs Inhalation Twice a day Active Medrol 4 MG as directed Orally 07/23/2025 Active Social History Tobacco Use: Social History Observation Description Date Details (start date - stop date) Former Smoker NA - NA CURRENT TOBACCO USE: Question Answer Notes Are you a: former smoker quit 1991 Vital Signs Weight 168 lbs 07/23/2025 Blood pressure systolic 132 mm Hg 07/23/20 25 Blood pressure diastolic 70 mm Hg 025 Heart Rate 68 /min 07/23/2025 Height 67 in 07/23/2025 BMI 26.31 kg/m2 07/23/2025 Encounters Encounter Location Date Provider Diagnosis [facility] [address] [id number] 07/23/2025 Ania Richey Acute otitis media, left H66.92 and Acute URI J06.9 Assessments Encounter Date Diagnosis (ICD Code) Assessment Notes Treatment Notes Treatment Clinical Notes Section Notes 07/23/2025 Acute otitis media, left (ICD-10 - H66.92) 07/23/2025 Acute URI (ICD-10 - J06.9) Has cough medication at home. Plan Of Treatment Medication Medication Name Sig Start Date Stop Date Notes Amoxicillin-Pot Clavulanate 875-125 MG 1 tablet Orally every 12 hrs; Duration: 7 days 07/23/2025 Medrol 4 MG as directed Orally 07/23/2025 Treatment Notes Assessment Notes Acute URI Has cough medication at home. Next Appt Details Follow Up: prn, Reason: Progress Notes * PERLA VAUGHNDOB:1950 (74 yo M)Acc No.[id number]:07/23/2025 Progress Notes Patient: PERLA HU Provider: JOSEE Espinal :1950 A ge:74 Y S ex:Male Date:07/23/2025 Address:[address] [place] [address], [id number] Pcp:Valerio Dior Subjective: * Chief Complaints: * 1 . Dizzy, congested, ears. * HPI: E NT/respiratory: Pt states these symptoms started over a month ago. 74 year old male presents with c/o nasal congestion s neezing, all the time, clear drainage. c/o ear pain b ilateral. c/o dizziness. Denies : sore throat. D enies : cough. D enies : Fever.?Denies : Chest Pain. D enies : Short of Breath. D enies : headache. D enies : chest congestion. D enies : body aches. * ROS: D ERMATOLOGY: no R armand. [...] Diagno stic Procedure: a lola surgeries , [facility]-kidney stone 08/2017, [facility] - kidney stone 01/02/2021. * [...] application Externally Twice a day , Taking Wegovy 0.25 MG/0.5ML Solution Auto-injector 0.25 mg Subcutaneous once a week , Taking clonazePAM 1 MG Tablet 1 tab(s) orally Two times a day , Taking Atorvastatin Calcium 10 mg Tablet 1 tablet orally once a day , Taking Fenofibric Acid 135 MG Capsule Delayed Release 1 capsule Orally Once a day , Taking Linzess 290 mcg Capsule TAKE 1 CAPSULE BY MOUTH EVERY MORNING ON an EMPTY stomach AT least 30 MINUTES BEFORE breakfast , Taking Levothyroxine Sodium 88 mcg Tablet 1 tablet orally once a day , Discontinued Benzonatate 200 MG Capsule 1 capsule Orally Three times a day, prn , Medication List reviewed and reconciled with the patient * Allergies: C odeine: rash - Allergy, Incruse Ellipta: wheezing worse. Objective: * Vitals: W t: 168, Temp: 97.8, BP: 132/70, HR: 68, Nurse: pe, Ht: 67, BMI:26.31. * Examination: G eneral Examination: General Appearance: N AD. H EENT: s clera and conjunctiva clear, PERRLA, left TM with erythema and effusion. O ral cavity: n o lesions, mucosa moist and WNL, no erythema. N thu: s upple, no lymphadenopathy. C hest: n ormal shape and expansion. H eart: R SR. L ungs: c lear to auscultation. ? Assessment: * Assessment: 1. A cute otitis media, left - H66.92 (Primary) 2 . A cute URI - J06.9 Plan: * Treatment: 2. A cute URI Notes: Has cough medication at home. * Labs: * L ab: CBC Fingerstick (in house) (Collection Date & Time - 07/23/2025) Value Reference Range w bc 7.0 3.5 - 10 * l ym 31.5 15 - 50 * m id 6.9 2 - 15 * g ran 61.6 35 - 80 * r bc 5.05 3.5 - 5.5 * h gb 14.8 11.5 - 16.5 * h ct 45.6 35 - 55 * m cv 90.2 75 - 100 * m ch 29.4 25 - 35 * m chc 32.6 31 - 38 * p lat 185 100 - 400 * Oriana Cramer 07/23/2025 11:18:19 AM EST > Provider reviewed results while patient in office. * Procedure Codes: G 2211 Complex e/[place], [address] CAPILLARY BLOOD DRAW, 64646 CBC WITH AUTO DIFF, G8783 BP SCR PRFRM RCMDD DEFIND SCR INTVL, G8752 MOST RECENT SYSTOLIC BP < 140MM HG, G8754 MOST RECENT DIASTOLIC BP < 90MM HG, 3075F SYST BP GE 130 - 139MM HG, 3078F DIAST BP < 80 MM HG * Follow Up: p rn * Images: Billing Information: * Visit Code: 30087 Office Visit, Est Pt., Level 3. * Procedure Codes: G2211 Complex e/[place]. [address] CAPILLARY BLOOD DRAW. 28586 CBC WITH AUTO DIFF. G8783 BP SCR PRFRM RCMDD DEFIND SCR INTVL. G8752 MOST RECENT SYSTOLIC BP < 140MM HG. G8754 MOST RECENT DIASTOLIC BP < 90MM HG. 3075F SYST BP GE 130 - 139MM HG. 3078F DIAST BP < 80 MM HG. * Electronic signature of JOSEE Maria on 08/28/2025 at 11:51 AM EST Sign off status: Pending * Provider: JOSEE Espinal Date: 09/22/2024 Generated for Antwan negrete/Eliseo/eTransmnae on: 10/29/2024 11:51 AM EST History and Physical Notes * HPI (History of Present Illness) Category Sub-Category Detail Notes Category Not es ENT/respiratory sore throat ear pain bilateral Short of Breath Chest Pain cough Fever headache chest congestion nasal congestion sneezing, all the ti me, clear drainage dizziness body aches Examination Category Sub-Category Detail Notes Category Not es General Examination HEENT: sclera and c onjunctiva clear, PERRLA, left TM with erythema and effusion Heart: RSR Lungs: clear to auscultatio n General Appearance: NAD Neck: supple, no lymphaden opathy Oral cavity: no lesions, mucosa m oist and WNL, no erythema Chest: normal shape and exp ansion
--- NOTE | 2025-08-28 11:00 | CT_ITS ---
FINAL REPORT TECHNIQUE: multiple axial CT images were performed from the foramen magnum to the vertex without enhancement. This study was performed with techniques to keep radiation doses as low as reasonably achievable (ALARA). Individualized dose reduction techniques using automated exposure control or adjustment of mA and/or kV according to the patient's size were employed. This study was performed with techniques to keep radiation doses as low as reasonably achievable (ALARA). Individualized dose reduction techniques using automated exposure control or adjustment of mA and/or kV according to the patient's size were employed. CLINICAL HISTORY: DIZZINESS COMPARISON: 08/12/2022 FINDINGS: The ventricles are mildly enlarged. There is mild to moderate diffuse atrophy, particularly in the frontal regions. There is periventricular white matter change likely related to small vessel disease. There is no evidence of hemorrhage. No masses are identified. No extra-axial fluid is seen. The sinuses are normal. IMPRESSION: Atrophy and chronic changes without acute process. Reviewed, Interpreted and Dictated by Juan Manrique MD Transcribed by Cassie Gonzáles Authenticated and [facility]
--- OUTSIDE RECORDS SUMMARY | 2025-08-28 11:52 | XMS_ITS | Clinical Summary ---
Author Organization [facility] Address [address] [place] [address] Care Team Providers Care [facility] Name Role Phone Ania Richey Primary Care Provider [phone] Allergies Active Allergy Reactions Criticality Noted Date Comments Codeine Itching 11/07/2016 Medications allopurinol (ZYLOPRIM) 100 MG tablet Take 100 mg by mouth Daily. 0 7 Active busPIRone (BUSPAR) 10 MG tablet 10 mg 2 (Two) Times a Day. 0 7 Active clonazePAM (KlonoPIN) 1 MG tablet Take 1 tablet by mouth Daily. 0 7 Active rosuvastatin (CRESTOR) 20 MG tablet Take 20 mg by mouth Daily. 3 Active gabapentin (NEURONTIN) 300 MG capsule Take 300 mg by mouth Daily. 3 Active levothyroxine (SYNTHROID, LEVOTHROID) 25 MCG tablet Take 1 tablet by mouth Daily. 0 7 Active Cholecalciferol (VITAMIN D-3) 1000 units capsule Take 5,000 Units by mouth Daily. 5 Active FENOFIBRATE PO Take 135 mg by mouth Daily. Active levalbuterol (XOPENEX) 1.25 MG/0.5ML nebulizer solution Take 1 ampule by nebulization Daily. Active esomeprazole (nexIUM) 20 MG capsule Take 20 mg by mouth Every Morning Before Breakfast. Active fluticasone-nahomy meterol (ADVAIR) 500-50 MCG/DOSE DISKUS Inhale 1 puff Daily. Active RA ASPIRIN EC 81 MG EC tablet take 1 tablet by mouth twice a day for 45 DAYS AFTER SURGERY 0 7 Active cephalexin (KEFLEX) 500 MG capsule take 1 capsule by mouth four times a day (AFTER SURGERY) 0 7 Active fenofibric acid (TRILIPIX) 135 MG capsule delayed-release delayed release capsule 0 7 Active RA COL-RITE 100 MG capsule take 1-2 capsules by mouth daily if needed (AFGTER SURGERY) 0 7 Active dutasteride (AVODART) 0.5 MG capsule take 1 capsule by mouth once daily 0 7 Active esomeprazole (nexIUM) 40 MG capsule 0 7 Active meloxicam (MOBIC) 15 MG tablet take 1 tablet by mouth once daily 0 7 Active ondansetron (ZOFRAN) 4 MG tablet take 1 tablet by mouth every 4 to 6 hours if needed for nausea (AFTER SURGERY) 0 7 Active gabapentin (NEURONTIN) 300 MG capsule Take 1 capsule by mouth at bedtime after surgery 30 capsule 7 Active oxyCODONE (ROXICODONE) 5 MG immediate release tablet Take 1-2 tablets by mouth Every 4 to 6 Hours for after surgery pain 144 tablet 07/27/2017 2:46 PM EST 7 Active Additional Information Patient not taking.Reported on 04/29/2025 traMADol (ULTRAM) 50 MG tablet Take 1-2 tablets by mouth Every 6 to 8 Hours for breakthrough after surgery pain 120 tablet 07/27/2017 2:46 PM EST 7 Active Additional Information Patient not taking.Reported on 04/29/2025 Budeson-Glycopy rrol-Formoterol (Breztri Aerosphere) 160-9-4.8 MCG/ACT aerosol inhaler Active Evolocumab (Repatha) solution prefilled syringe injection 1 mL Subcutaneous; Duration: 30 day(s) Active Wegovy 0.25 MG/0.5ML solution auto-injector 5 Active fenofibrate (TRICOR) 145 MG tablet Take 1 tablet by mouth Daily. Active vitamin B-12 (CYANOCOBALAMIN ) 1000 MCG tablet Take 1 tablet by mouth Daily. Active atorvastatin (LIPITOR) 10 MG tablet TAKE ONE TABLET BY MOUTH ONCE A DAY; Duration: 30 Active Active Problems Problem Noted Date Diagnosed Date Infrarenal abdominal aortic aneurysm (AAA) witho ut rupture 04/28/2025 Resolved Problems Problem Noted Date Diagnosed Date Resolved Date Pain due to unicompartmental arthroplasty of knee 05/09/2017 07/27/2017 Overview (05/09/2017): Added automatically from request for surgery [id number] COPD (chronic obstructive pulmonary disease) 7 07/27/2017 Anxiety 11/07/2016 07/27/2017 HLD (hyperlipidemia) 11/07/2016 017 Family History Medical History Relation Name Comments Cancer Father Leukemia Father Cancer Mother Heart attack Mother Hypertension Mother Stroke Mother Relation Name Status Comments Father Mother Social History Tobacco Use Types Packs/Day Years Used Date Smoking Tobacco: Former Smokeless Tobacco: Current Chew Tobacco Cessation:Ready to Q uit: Not Asked; Counseling Given: Not Answered Alcohol Use Standard Drinks/Week Comments Yes 5 (1 standard drink = 0.6 oz pur e alcohol) 2 cans of beer a day Abuse Screen Answer Date Recorded Unsafe at Home or Work/School Not on file Feels Threatened by Someone? Not on file 05/2023 Does Anyone Keep You from Co ntacting Others or Doint Things Outside the Home? Not on file 06/19/2023 Physical Sign of Abuse Present Not on file 1 Housing Stability Answer Date Recorded Current Living Arrangements Not on file 05/2023 Potentially Unsafe Housing Conditions Not on emily e 06/19/2023 Family and Community Support Answer Kory e Recorded Help with Day-to-Day Activities Not on file 06/19/2023 Lonely or Isolated Not on file 06/19/2023 Employment Answer Date Recorded Do you want help finding or keeping work or a tiffanie b? Not on file 06/19/2023 Disabilities Answer Date Recorded Concentrating, Remembering, or Making Decisions Difficulty Not on file 06/19/2023 Doing Errands Independently Difficulty Not on fi le 06/19/2023 Education Answer Date Recorded Help with school or training? Not on file Preferred Language Not on file 06/19/2023 Sex and Gender Information Value Date Recorded Sex Assigned at Not on file Legal Sex Male 1:17 PM EDT Gender Identity Not on file Sexual Orientation Not on file Last Filed Vital Signs Vital Sign Reading Time Taken Comments Blood Pressure 136/72 04/29/2025 1:35 PM EDT rig ht arm Pulse 73 04/29/2025 1:33 PM EDT Temperature 37 C (98.6 F) 04/29/2025 1:33 PM EDT Respiratory Rate 16 07/27/2017 7:00 AM EST Oxygen Saturation 97% 04/29/2025 1:33 PM EDT Inhaled Oxygen Concentration - - Weight 73.6 kg (162 lb 3.2 oz) 04/29/2025 1:33 P M EDT Height 170.2 cm (5' 7 ) 04/29/2025 1:33 PM EDT p er pt Body Mass Index 25.4 04/29/2025 1:33 PM EDT Plan of Treatment Upcoming Encounters Date Type Department Care Team (Late st Contact Info) Description 10/30/2025 9:00 AM EST Office Visit [facility] [address] [phone] Nathalie Merlos, CONSERVATION TECHNICIAN [address] [address] Health Maintenance Due Date Last Done Comments TDAP/TD VACCINES (1 - Tdap) 1967 COLOGUARD 1993 COLON CANCER SCREENING 5 YEA R SIGMOIDOSCOPY 1993 COLONOSCOPY [address] SCREENING [address] COLONOGRAPHY 1993 FECAL OCCULT BLOOD TEST 1993 FIT Testing (1 year) 1993 ANNUAL WELLNESS VISIT 06/08/2016 HEPATITIS C SCREENING 06/08/2016 Pneumococcal Vaccine 50+ (2 of 2 - PCV) 06/08/2019 06/08/2018, 06/11/2017 RSV Vaccine - Adults (1 - 1- dose 75+ series) 2023 INFLUENZA VACCINE 04/11/2025 05/09/2024, , 05/25/2022, Additional history exists COVID-19 Vaccine (8 - Pfizer risk season) 2025 05/09/2024, 06/29/2023, 06/06/2022, Additional history exists ZOSTER VACCINE Completed 12/10/2018, 09/25/2018 Medical Devices Implanted Type Area Show Operations Supervisor Device Identifier Shelf Expiration Date Model / Serial / Lot Cmt Bone Simplex/P Full Dose 10/Pk - [id number] Implanted:Qty: 2 on 07/25/2017 by Carter Moser Jr., MD at [facility] Implant Left: Knee TARA JESUS 01/09/2020 [id number] / / [id number] Comp Fem Attune Cmt Ps Sz5 Lt - [id number] Implanted:Qty: 1 on 07/25/2017 by Carter Moser Jr., MD at [facility] Implant Left: Knee DEPUY 08/10/2026 [id number] / / [id number] Base Tib Attune Cmt Rp Sz4 - [id number] Implanted:Qty: 1 on 07/25/2017 by Carter Moser Jr., MD at [facility] Implant Left: Knee DEPUY 06/10/2027 [id number] / / [id number] Insrt Tib Attune Ps Rp Sz5 5mm - [id number] Implanted:Qty: 1 on 07/25/2017 by Carter Moser Jr., MD at [facility] Implant Left: Knee DEPUY 04/10/2022 [id number] / / [id number] Comp Pat Attune Cmt Medl/Dome 35mm - [id number] Implanted:Qty: 1 on 07/25/2017 by Carter Moser Jr., MD at [facility] Implant Left: Knee DEPUY 08/11/2018 [id number] / / [id number] Totl Kn Attune Depuy [id number] - [id number] Implanted:Qty: 1 on 07/25/2017 by Carter Moser Jr., MD at [facility] Implant Left: Knee DEPUY CAPKNEETOTALD EP5 / / Insurance [facility] Medicare [employer] PPO Care Teams [facility] Relationship Specialty Start Date End Date Ania Richey PA [address] [facility] [address] [place], [place] [id number] PCP - 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
--- OUTSIDE RECORDS SUMMARY | 2025-08-28 11:53 | XMS_ITS | Patient Health Record ---
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 Operator General Name Role Phone Valerio Dior Primary Care Provider [phone] ShirazAnia stephen Unavailable [phone] Allergies Allergen (clinical drug ingredient) Drug/Non Drug [...] - 38 plat 190 100 - 400 P-Vitamin B12 Reviewed date:01/30/2025 12:48:51 PM Interpretation: Performing Lab: Notes/Report: Test performed by [facility] [address] [place] [address] , [address], [place] [address] Marino Bullock MD, Site Identification Specialist CLIA: [id number] Vitamin B12 243 775-5814 pg/mL P-T4 Free (thyroxine) Reviewed date:01/30/2025 12:48:51 PM Interpretation: Performing Lab: Notes/Report: Test performed by [facility], [address] , [address], [place] [address] Marino Bullock MD, Site Identification Specialist CLIA: [id number] Thyroxine Free (free T4) 1.47 0.86-1.76 ng/dL P-TSH Reviewed date:01/30/2025 12:48:51 PM Interpretation: Performing Lab: Notes/Report: Test performed by [facility] , [place] [address] Marino Bullock MD, Site Identification Specialist CLIA: [id number] TSH 4.15 0.43-5.25 mU/L P-Vitamin D 25-Hydroxy Reviewed date:01/30/2025 12:48:51 PM Interpretation: Performing Lab: Notes/Report: Test performed by [facility] [address] , [place] [address] Marino Bullock MD, Site Identification Specialist CLIA: [id number] Vitamin D 25-Hydroxy 47.6 30.0-100.0 ng/mL Interpretation of Vitamin D 25 OH: < 20 ng/mL - Deficiency 20 - 29 ng/mL - Insufficiency 30 - 100 ng/mL - Sufficiency > 100 ng/mL - Super-therapeutic- toxicity may occur above this level. Clinical correlation required. CBC Fingerstick (in house) Reviewed date:07/23/2025 02:02:18 [...] - 38 plat 185 100 - 400 P-Vitamin D 25-Hydroxy Reviewed date:11/15/2024 03:54:56 PM Interpretation:28.6 Performing Lab: Notes/Report: Test performed by [facility] [address] , [place] [address] Marino Bullock MD, Site Identification Specialist CLIA: [id number] Vitamin D 25-Hydroxy 28.6 30.0-100.0 ng/mL Interpretation of Vitamin D 25 OH: < 20 ng/mL - Deficiency 20 - 29 ng/mL - Insufficiency 30 - 100 ng/mL - Sufficiency > 100 ng/mL - Super-therapeutic- toxicity may occur above this level. Clinical correlation required. P-Uric Acid Reviewed date:11/15/2024 03:54:56 PM Interpretation:Normal Performing Lab: Notes/Report: Test performed by [facility] , [address], [place] [address] Marino Bullock MD, Site Identification Specialist CLIA: [id number] Uric Acid 5.7 3.4-8.0 mg/dL P-TSH Reviewed date:11/15/2024 03:54:56 PM Interpretation:0.25 Performing Lab: Notes/Report: Test performed by [facility] , [address], [place] [address] Marino Bullock MD, Site Identification Specialist CLIA: [id number] TSH 0.25 0.43-5.25 mU/L P-PSA Reviewed date:11/15/2024 03:54:56 PM Interpretation:Normal Performing Lab: Notes/Report: Test performed by [facility], [place] [address] Marino Bullock MD, Site Identification Specialist CLIA: [id number] PSA 2.04 <4.00 ng/mL Please note this is an ultrasensitive PSA assay with a lower limit of detection of 0.014 ng/mL. This test is performed by the Javid ECLIA methodology. Values obtained with different assay methods or kits cannot be directly compared. P-Magnesium Reviewed date:11/15/2024 03:54:56 PM Interpretation:Normal Performing Lab: Notes/Report: Test performed by [facility], [place] [address] Marino Bullock MD, Site Identification Specialist CLIA: [id number] Magnesium 1.9 1.6-2.4 mg/dL P-Lipid Panel Reviewed date:11/15/2024 03:54:56 PM Interpretation:hdl 35 Performing Lab: Notes/Report: Test performed by [facility] [address], [place] [address] Marino Bullock MD, Site Identification Specialist CLIA: [id number] Cholesterol 73 <200 mg/dL Triglycerides 91 <150 [...] Results: 20 Units: mg/dL % Change: -88% P-T4 Free (thyroxine) Reviewed date:11/15/2024 03:54:56 PM Interpretation:2.11 Performing Lab: Notes/Report: Test performed by [facility] [address] [place] [address] , [address], [place] [address] Marino Bullock MD, Site Identification Specialist CLIA: [id number] Thyroxine Free (free T4) 2.11 0.86-1.76 ng/dL P-Comprehensive Metabolic Pa sakshi (CMP) Reviewed date:11/15/2024 03:54:56 PM Interpretation:Normal Performing Lab: Notes/Report: Test performed by [facility] [address] [place] [address] , [address], [place] [address] Marino Blulock MD, Site Identification Specialist CLIA: [id number] Sodium 143 135-145 mmol/L Potassium 4.4 3.5-5.3 [...] 0.4 <0.2-1.2 mg/dL A/G Ratio 2.2 1.1-2.5 P-Vitamin B12 Reviewed date:11/15/2024 03:54:56 PM Interpretation:Normal Performing Lab: Notes/Report: Test performed by [facility] [address] [place] [address] , [address], [place] [address] Marino Bullock MD, Site Identification Specialist CLIA: [id number] Vitamin B12 651 771-9349 pg/mL CBC Venipuncture (in house) Reviewed date:11/14/2024 01:58:44 [...] - 38 platlet 203 100 - 400 CBC Fingerstick (in house) Reviewed date:01/23/2025 03:29:18 [...] - 38 plat 154 100 - 400 CT Scan : Abd and Pelvis w/ oral & IV contrast Reviewed date:03/11/2025 10:13:47 AM Interpretation: Performing Lab: Notes/Report: H-BUN/CREAT Reviewed date:03/06/2025 09:16:45 AM Interpretation:BUN 21 Performing Lab: Notes/Report: BUN 21 9-20 mg/dl CREATT 1.20 0.66-1.25 mg/dl GFRAA 71 >60 ML/MIN EGFR 59 >60 ml/min Reason For Referral No Information Medications Medication SIG (Take, Route, Frequency, Duration) Notes Start Date End Date Status clonazePAM 1 MG 1 tab(s) orally Two times a day; Duration: 30 days 04/28/2025 Active Atorvastatin Calcium 10 mg 1 tablet oral ly once a day; Duration: 30 days Active Amoxicillin-Pot Clavulanate 875-125 MG 1 tablet Orally every 12 hrs; Duration: 7 days 07/23/2025 Active Fenofibric Acid 135 MG 1 capsule Orally Once a day; Duration: 90 days Active Linzess 290 mcg TAKE 1 CAPSULE BY [facility] EVERY MORNING ON an EMPTY stomach AT least 30 MINUTES BEFORE breakfast; Duration: 30 Active Levothyroxine Sodium 88 mcg 1 tablet ora lly once a day; Duration: 30 days Active Breztri Aerosphere 160-9-4.8 MCG/ACT 2 puffs Inhalation Twice a day Active Medrol 4 MG as directed Orally 07/23/2025 Active Repatha 140 MG/ML 1 mL Subcutaneous; Duration: 30 day(s) Active Albuterol Sulfate HFA 108 (90 Base) MCG/ACT 1 puff as needed Inhalation every 4 hrs, prn 05/24/2024 Active Clotrimazole 1 % 1 application Multi Needle Machine Operator ally Twice a day 11/14/2024 Active Wegovy 0.25 MG/0.5ML 0.25 mg Subcutaneou s once a week 03/12/2025 Active Immunizations Vaccine Route Administration Date Status [...] Problem Status W/U Status Risk Notes Problem Insomnia (723452943) Insomnia (G47.00) Active c onfirmed Problem Vitamin D deficiency (50140735) Vitamin D deficiency (E55.9) Active confirmed Problem COPD - Chronic obstructive pulmonary disease (35468085) COPD (chronic obstructive pulmonary disease) (J44.9) Active confirmed Problem Essential hypertension (33078354) Essential hypertension (I10) Active confirmed Problem Asthmatic bronchitis (815879287) Asthmatic bronchitis (J45.909) Active confirmed Problem Hypertriglyceridemia (924215147) Hypertriglyceridemia (E78.1) Active confirmed Problem Anxiety (73530924) Anxiety (F41.9) Active confi rmed Problem Hyperuricemia (72191232) Hyperuricemia (E79.0) Active confirmed Problem Acute exacerbation o f chronic obstructive airways disease (604673091) COPD exacerbation (J44.1) Active confirmed Problem Benign prostatic hyperplasia (798601738) BPH (benign prostatic hyperplasia) (N40.0) Active confirmed Problem Primary insomnia (7554864) Primary insomnia (F51.01) Active confirmed Problem Localized, primary osteoarthritis of the hand (077976272) Primary osteoarthritis, right hand (M19.041) Active confirmed Problem Localized, primary osteoarthritis of the hand (152365429) Primary osteoarthritis, left hand (M19.042) Active confirmed Problem Thyroid nodule (440353715) Thyroid nodule (E04.1) Active confirmed Problem Urinary hesitancy (0143146) Urinary hesitancy (R39.11) Active confirmed Problem Chronic pain (69304734) Other chronic pain (G89.29) Active confirmed Problem Uncomplicated moderate persistent asthma (437964132) Moderate persistent asthma without complication (J45.40) Active confirmed Problem Acquired hypothyroidism (874407299) Acquired hypothyroidism (E03.9) Active confirmed Problem Inflammatory and toxic neuropathy (090831373) Peripheral polyneuropathy (G62.9) Active confirmed Problem COPD - Chronic obstructive pulmonary disease (31811491) Chronic obstructive pulmonary disease, unspecified COPD type (J44.9) Active confirmed Problem Gastroesophageal reflux disease (967982779) Gastroesophageal reflux disease, esophagitis presence not specified (K21.9) Active confirmed Problem Exacerbation of moderate persistent asthma (disorder) (991270771) Moderate persistent asthma with acute exacerbation (J45.41) Active confirmed Problem Osteoarthritis of knee (836419150) Primary osteoarthritis of left knee (M17.12) Active confirmed Problem Dysphagia (24622250) Dysphagia, unspecified type (R13.10) Active confirmed Problem Excessive daytime sleepiness (8651761177) Excessive daytime sleepiness (G47.19) Active confirmed Problem Dyslipidemia (165211990) Dyslipidemia (E78.5) Active confirmed Problem Harmful pattern of use of tobacco (disorder) (7471097664) History of tobacco use disorder (Z87.891) Active confirmed Problem Postoperative Hypothyroidism (24687937) Hypothyroidism, 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) Active confirmed Problem Irritable bowel syndrome characterized by constipation (560825964) Irritable bowel syndrome with constipation (K58.1) Active confirmed Problem Lower urinary tract symptoms due to benign prostatic hypertrophy (36867534333941) Benign prostatic hyperplasia with lower urinary tract symptoms (N40.1) Active confirmed Problem History of malignant neoplasm of thyroid (514029541) History of thyroid cancer (Z85.850) Active confirmed Problem Postoperative Hypothyroidism (48779488) Status post partial thyroidectomy (E89.0) Active confirmed Problem Age-related cataract (96905021) Age-related cataract of both eyes, unspecified age-related cataract type (H25.9) Active confirmed Problem Allergic rhinitis (82061408) Chronic non-seasonal allergic rhinitis, unspecified trigger (J30.89) Active confirmed Problem Overweight (629377032) Overweight (BMI 25.0-29.9) (E66.3) Active confirmed Problem Seasonal allergic rhinitis (007871566) Seasonal allergic rhinitis, unspecified trigger (J30.2) Active confirmed Problem Allergic rhinitis (44784454) Allergic rhinitis, unspecified seasonality, unspecified trigger (J30.9) Active confirmed Problem Primary hypertension (37933336) Primary hypertension (I10) Active confirmed Problem Atherosclerotic hear t disease of [place] coronary artery without angina pectoris (862604919948650) Coronary artery disease, unspecified vessel or lesion type, unspecified whether angina present, unspecified whether [place] or transplanted heart (I25.10) Active confirmed Problem Chronic obstructive pulmonary disease (06229296) COPD, mild (J44.9) Active confirmed Vital Signs Heart Rate 68 /min 07/23/2025 Blood pressure diastolic 70 mm Hg 07/23/2025 Height 67 in 07/23/2025 Blood pressure systolic 132 mm Hg 07/23/2025 Weight 168 lbs 07/23/2025 BMI 26.31 kg/m2 07/23/2025 Encounters Encounter Location Date Provider [facility] [address] [place] [id number] 11/14/2024 Ania Kaiden Acquired hypothyroid ism E03.9 ; Dyslipidemia E78.5 ; Essential hypertension I10 ; Hyperuricemia E79.0 ; Chronic obstructive pulmonary disease, unspecified COPD type J44.9 ; Coronary artery disease, unspecified vessel or lesion type, unspecified whether angina present, unspecified whether [place] or transplanted heart I25.10 ; Irritable bowel syndrome with constipation K58.1 ; BPH (benign prostatic hyperplasia) N40.0 ; Vitamin B12 deficiency E53.8 ; Vitamin D deficiency E55.9 ; Muscle cramps R25.2 ; Rash R21 and Other fatigue R53.83 [facility] [address] [place] [id number] 12/27/2024 Ania Crowdy Acute URI J06.9 ; BM I 25.0-25.9,adult Z68.25 and Anxiety F41.9 [facility] [address] [place] [id number] 01/22/2025 Ania Crowdy Acute URI J06.9 [facility] [address] [place] [id number] 01/29/2025 Ania Crowdy Vitamin D deficiency E55.9 ; Hypothyroidism, postsurgical E89.0 ; History of thyroid cancer Z85.850 and Vitamin B12 deficiency E53.8 [facility] [address] [place] [id number] 02/26/2025 Ania Crowdy Abdominal mass, unspecified abdominal location R19.00 and BMI 25.0-25.9,adult Z68.25 [facility] [address] [place] [id number] 07/23/2025 Ania Crowdy Acute otitis media, left H66.92 and Acute URI J06.9 [facility] [address] [place] [id number] 09/13/2024 R Ray Barby Coronary artery dise ase, unspecified vessel or lesion type, unspecified whether angina present, unspecified whether [place] or transplanted heart I25.10 [facility] [address] [place], [place] [id number] 10/14/2024 R Ray Barby [facility] [address] [place], [place] [id number] 10/23/2024 R Ray Barby [facility] [address] [place], [place] [id number] 11/15/2024 Ania Crowdy [facility] [address] [place], [place] [id number] 12/18/2024 Ania Crowdy [facility] [address] [place], [place] [id number] 12/19/2024 R Ray Barby [facility] [address] [place] [id number] 01/06/2025 R Ray Barby Anxiety F41.9 [facility] [address] [place], [place] [id number] 01/16/2025 R Ray Barby [facility] [address] [place] [id number] 01/30/2025 Ania Crowdy [facility] [address] [place], [place] [id number] 03/11/2025 Ania Crowdy [facility] [address] [place], [place] [id number] 03/12/2025 Ania Crowdy [facility] [address] [place], [place] [id number] 03/24/2025 R Ray Barby [facility] [address] [place], [place] [id number] 04/28/2025 R Ray Barby Anxiety F41.9 [facility] [address] [place], [place] [id number] 07/31/2025 Ania Richey Assessments Encounter Date Diagnosis (ICD Code) Assessment Notes Treatment Notes Treatment Clinical Notes Section Notes 09/13/2024 Coronary artery disease, unspecified vessel or lesion type, unspecified whether angina present, unspecified whether [place] or transplanted heart (ICD-10 - I25.10) 11/14/2024 Acquired hypothyroidism (ICD-10 - E03.9) 11/14/2024 Dyslipidemia (ICD-10 - E78.5) 12/27/2024 Acute URI (ICD-10 - J06.9) 12/27/2024 BMI 25.0-25.9,adult (ICD-10 - Z68.25) 01/06/2025 Anxiety (ICD-10 - F41.9) 01/22/2025 Acute URI (ICD-10 - J06.9) 01/29/2025 Vitamin D deficiency (ICD-10 - E55.9) 02/26/2025 BMI 25.0-25.9,adult (ICD-10 - Z68.25) 02/26/2025 Abdominal mass, unspecified abdominal location (ICD-10 - R19.00) 07/23/2025 Acute otitis media, left (ICD-10 - H66.92) 07/23/2025 Acute URI (ICD-10 - J06.9) Has cough medication at home. 04/28/2025 Anxiety (ICD-10 - F41.9) 12/27/2024 Anxiety (ICD-10 - F41.9) 01/29/2025 Hypothyroidism, postsurgical (ICD-10 - E89.0) 11/14/2024 Essential hypertension (ICD-10 - I10) 11/14/2024 Hyperuricemia (ICD-10 - E79.0) 01/29/2025 History of thyroid cancer (ICD-10 - Z85.850) 01/29/2025 Vitamin B12 deficiency (ICD-10 - E53.8) 11/14/2024 Chronic obstructive pulmonary disease, unspecified COPD type (ICD-10 - J44.9) 11/14/2024 Coronary artery disease, unspecified vessel or lesion type, unspecified whether angina present, unspecified whether [place] or transplanted heart (ICD-10 - I25.10) 11/14/2024 [...] see if this improves. 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 Leggett 2011 left knee replacement 07/2017 Heart Cath Apr 2018 C-scope - Dr. Marinelli/ polyps 10/2016 Urolift - Dr. Brown 08/2021 Heart Cath - Dr. Almeida 07/13/2023 Hospitalization History Reason Date(Month/Year) above surgeries [facility] - kidney stone 01/02/2021 [facility] 08/2017
== END 2025-08-28 23:59 | disposition home or self-care (01) ==
LOC: RAD 10:31
PROVIDERS: PCP Physician Assistant; Visit Provider Nurse Practitioner
DX: R42 Dizziness and giddiness (principal)
CPT/HCPCS: 70450